=== PATIENT | female | born 1995 | race Hispanic/Latino ===

== ENCOUNTER → 2022-02-05 10:41 | Outpatient (CLI) | payer OTHER, MEDICAID, SELFPAY ==
[2022-02-05 20:37] LABS: Appearance Urine UA CLEAR; Bilirubin Urine UA NEGATIVE (NEGATIVE); Color Urine UA YELLOW; Glucose Urine UA NEGATIVE (Negative); Ketones Urine UA NEGATIVE (NEGATIVE); Leukocyte Esterase Urine UA 3+ (NEGATIVE); Nitrite Urine UA NEGATIVE (Negative); Occult Blood Urine UA 2+ (Negative); Protein Urine UA NEGATIVE (Negative); Specific Gravity Urine UA <=1.005 (1.000-1.035); Urobilinogen Urine UA 0.2 E.U./dL (0.2)
[2022-02-05 20:55] LABS: Bacteria Urine Many (>30); Culture Indicated Urine Cult Not Indicated; RBC Urine 1-5/HPF (0-5/HPF); Squamous Epithelial Cell Urine 1-5 /HPF (0-5/HPF); WBC Urine 30-100/HPF (0-5/HPF)
== END ==
PROVIDERS: PCP Family Medicine; Referring Provider Nurse Practitioner Family; Visit Provider Nurse Practitioner Family
DX: R30.0 Dysuria (principal)
CPT/HCPCS: 81001; 87077; 87086; 87186

== ENCOUNTER 2022-10-19 18:35 | Emergency (ER) | payer OTHER, MEDICAID, SELFPAY ==
[2022-10-19 19:07] VITALS: BP 110/55; PULSE 78; RESP 18; TEMP 36.1; O2SAT 98; BMI 35.6
[2022-10-19 19:32] LABS: Add Manual Diff / Slide Review NO; Basophils Absolute Auto 0 /uL (0-100); Basophils Percent Auto 0.4 % (0-2); Eosinophils Absolute Auto 100 /uL (0-450); Eosinophils Percent Auto 1.4 % (2-4); Hematocrit 36.8 % (36-46); Hemoglobin 12.8 g/dL (12.0-16.0); Lymphocytes Absolute Auto 2800 /uL (1100-4500); Lymphocytes Percent Auto 37.9 % (25-40); Mean Corpuscular HGB Conc 34.7 % (30-36); Mean Corpuscular Hemoglobin 29.2 PG (26-34); Monocytes Absolute Auto 500 /uL (0-900); Monocytes Percent Auto 7.3 % (3-14); Neutrophils Absolute Auto 3900 /uL (1500-7000); Platelet Count 195 X10^3/uL (150-400); Red Blood Cell Count 4.37 X10^6/uL (4.0-5.2); Red Cell Distribution Width 14.4 % (11.6-14.8); White Blood Cell Count 7.3 X10^3/uL (4.5-11.0)
[2022-10-19 19:49] LABS: BUN Creatinine Ratio 14.3 (6-22); Blood Urea Nitrogen 9 mg/dL (7-17); Calcium 8.6 mg/dL (8.4-10.2); Carbon Dioxide 23 mmol/L (22-32); Chloride 105 mmol/L (98-107); Estimated Glomerular Filt Rate > 60 mL/min (>60); Glucose 86 mg/dL (70-100); HEMOLYSIS < 15 (0-50); Potassium 3.5 mmol/L (3.4-5.1); Sodium 140 mmol/L (137-145)
--- NOTE | 2022-10-19 20:39 | ED_ITS ---
HPI - Female Genitourinary General Chief complaint: Vaginal Bleeding Stated complaint: had iud remov Fri, excessive bleedi as of Sat Time Seen by Provider: 10/19/22 20:17 Source: patient Mode of arrival: Ambulatory History of Present Illness HPI Narrative: 27-year-old female nonsmoker presents with few days of lower pelvic cramping and vaginal bleeding. She denies systemic complaints such as dizziness, weakness or lightheadedness. At no point has she saturated more than a pad per hour. She states that she had an IUD removed on and soon thereafter started developing some spotting. She has been managed by learning and development administrator at [facility]. If she sits for a long period of time upon standing she will feel a gush of blood in the passage of a clot but no tissue, discharge. She is had no fever or chills. She denies chest pain or shortness of breath. Related Data Allergies Allergy/AdvReac Type Severity Reaction Status Date / Time No Known Drug Allergies Allergy Verified 10/19/22 23:13 Review of Systems Review of Systems Narrative: GENERAL: Denies chills, fatigue, malaise, fever, sweats. HEENT: Denies sinus pain, ear pain, sore throat, difficulty swallowing, dizziness. RESPIRATORY: Denies dyspnea, cough, wheezing, hemoptysis, sputum. CARDIOVASCULAR: Denies chest pain, palpitations, orthopnea, edema, GASTROINTESTINAL: Denies nausea, vomiting, abdominal pain, diarrhea, constipation, melena. : See HPI MUSCULOSKELETAL: denies weakness, joint pain, or bony pain SKIN: Denies rash, skin lesions, or other NEUROLOGIC: Denies weakness, headache, numbness, change in speech, confusion, seizures, incoordination. PSYCHIATRIC: No concerning psychosocial issues. 12 point review of systems is negative except for those stated above Patient History Substance Use Type: does not use Exam Narrative Exam Narrative: GENERAL: [27] year old patient appears stated age. Well-developed patient, in mild distress. HEAD: Atraumatic. Normocephalic. EYES: Pupils equal round and reactive. Extraocular motions intact. No scleral icterus. No injection or drainage. ENT: Nose without bleeding, purulent drainage. Throat without erythema, tonsillar hypertrophy or exudate. Airway patent. NECK: Trachea midline. Non tender CARDIOVASCULAR: Regular rate and rhythm without murmurs, gallops, or rubs. RESPIRATORY: Clear to auscultation. Breath sounds equal bilaterally. No wheezes, rales, or rhonchi. GASTROINTESTINAL: Abdomen soft, non-tender, nondistended. PELVIC: Minimal dark blood via closed cervical os, no clots or tissue, perf ormed with patient permission and female nursing reception interviewer EXTREMITIES: No edema or joint tenderness. BACK: Nontender without deformity or crepitance. No flank tenderness. NEURO: AOx3. SKIN: No rash or erythema of visible areas Initial Vital Signs Initial Vital Signs: Vital Signs Temperature 97 F L 10/19/22 19:07 Pulse Rate 78 10/19/22 19:07 Respiratory Rate 18 10/19/22 19:07 Blood Pressure 110/55 L 10/19/22 19:07 Pulse Oximetry 98 10/19/22 19:07 Oxygen Delivery Method 10/19/22 19:07 Course Orders Ordered: Discontinued Medications Acetaminophen (Acetaminophen 325 Mg Tablet) 650 mg PO NOW ONE Stop: 10/19/22 22:53 Last Admin: 10/19/22 23:14 Dose: 650 mg Documented By: MANGO Ketorolac Tromethamine (Ketorolac 30 Mg/Ml Vial) 15 mg IV NOW ONE Stop: 10/19/22 23:23 Last Admin: 10/19/22 23:47 Dose: 15 mg Documented By: MANGO Consultations Consultation #1: Discussed with on-call OB (Dr. Davies), who discussed history, physical, labs and imaging. Recommends NSAIDs on a schedule for the next few days, no indication for medroxyprogesterone or similar. Recommends typical return precautions and follow-up with her OB group Vital Signs Vital signs: Vital Signs - 8 hr 10/19/22 22:40 10/19/22 23:00 10/19/22 23:16 Pulse Rate 70 78 83 Respiratory Rate 16 16 Blood Pressure 116/70 138/88 Pulse Oximetry 98 98 98 Oxygen Delivery Method Room Air Room Air Room Air 10/19/22 23:30 10/19/22 23:30 Pulse Rate 64 Respiratory Rate Blood Pressure 109/70 Pulse Oximetry 98 Oxygen Delivery Method Room Air MDM - Female Genitourinary Lab Data 10/19/22 19:10 10/19/22 19:10 Labs: Lab Results 10/19/22 10/19/22 10/19/22 Range/Units 19:10 19:10 19:10 WBC 7.3 (4.5-11.0) X10^3/uL RBC 4.37 (4.0-5.2) X10^6/uL Hgb 12.8 (12.0-16.0) g/dL Hct 36.8 (36-46) % MCV 84.0 (80-100) fL MCH 29.2 (26-34) PG MCHC 34.7 (30-36) % RDW 14.4 (11.6-14.8) % Plt Count 195 (150-400) X10^3/uL Neut % (Auto) 53.0 (50-75) % Lymph % (Auto) 37.9 (25-40) % Piatt % (Auto) 7.3 (3-14) % Eos % (Auto) 1.4 L (2-4) % Baso % (Auto) 0.4 (0-2) % Neut # (Auto) 3900 (5917-9160) /uL Lymph # (Auto) 2800 (4846-9997) /uL Piatt # (Auto) 500 (0-900) /uL Eos # (Auto) 100 (0-450) /uL Baso # (Auto) 0 (0-100) /uL Sodium 140 (137-145) mmol/L Potassium 3.5 (3.4-5.1) mmol/L Chloride 105 (98-107) mmol/L Carbon Dioxide 23 (22-32) mmol/L BUN 9 (7-17) mg/dL Creatinine 0.63 (0.52-1.04) mg/dL Estimated GFR > 60 (>60) mL/min BUN/Creatinine Ratio 14.3 (6-22) Glucose 86 (70-100) mg/dL Calcium 8.6 (8.4-10.2) mg/dL Urine RBC (0-5/HPF) Urine WBC (0-5/HPF) Ur Squamous Epith Cells (0-5/HPF) Amorphous Sediment Urine Bacteria (None) Ur Culture Indicated? Blood Type O Positive Antibody Screen Negative 10/19/22 Range/Units 21:10 WBC (4.5-11.0) X10^3/uL RBC (4.0-5.2) X10^6/uL Hgb (12.0-16.0) g/dL Hct (36-46) % MCV (80-100) fL MCH (26-34) PG MCHC (30-36) % RDW (11.6-14.8) % Plt Count (150-400) X10^3/uL Neut % (Auto) (50-75) % Lymph % (Auto) (25-40) % Piatt % (Auto) (3-14) % Eos % (Auto) (2-4) % Baso % (Auto) (0-2) % Neut # (Auto) (2549-6512) /uL Lymph # (Auto) (4396-5034) /uL Piatt # (Auto) (0-900) /uL Eos # (Auto) (0-450) /uL Baso # (Auto) (0-100) /uL Sodium (137-145) mmol/L Potassium (3.4-5.1) mmol/L Chloride (98-107) mmol/L Carbon Dioxide (22-32) mmol/L BUN (7-17) mg/dL Creatinine (0.52-1.04) mg/dL Estimated GFR (>60) mL/min BUN/Creatinine Ratio (6-22) Glucose (70-100) mg/dL Calcium (8.4-10.2) mg/dL Urine RBC 5-10/hpf H (0-5/HPF) Urine WBC None seen (0-5/HPF) Ur Squamous Epith Cells 0-1 /hpf (0-5/HPF) Amorphous Sediment 1+ Urine Bacteria None seen (None) Ur Culture Indicated? Cult not indicated Blood Type Antibody Screen Point of Care Testing Test Results Negative Urine Dip Bedside Urine Glucose Negative Bedside Urine Bilirubin - Negative Bedside Urine Ketone - Negative Urine Specific [place] 1.015 Bedside Urine Occult Blood +++ Bedside Urine pH 6.0 Bedside Urine Protein - Negative Bedside Urine Urobilinogen - Negative Bedside Urine Nitrite - Negative Bedside Urine Leukocytes - Negative Esterase Imaging Data US - ETCHER APPRENTICE PHOTOENGRAVING: Radiologist's Impression: [address] [place] [id number] Ultrasound Report Signed Patient: Justina Lopez MR#: [id number] : 1995 Acct:[id number] Age/Sex: 27 / F Date of Service: 10/19/22 Loc: ED Accession Number: [id number] ?? Procedure: US pelvic complete Ordering Provider: Alf Mcqueen D.O. PROCEDURE:? US PELVIC COMPLETE ? INDICATIONS:? PAIN, BLEEDING 4 DAYS POST IUD REMOVAL ? TECHNIQUE:? Real-time scanning was performed of the pelvic organs, with image documenta tion.? Additional endovaginal scanning was necessary due to incomplete visualization of the adnexal and endometrial structures by transabdominal scanning.? ? COMPARISON:[facility], US, US PELVIC COMPLETE WITH TRANSVAGINAL, 09/25/2022, 12:28. ? FINDINGS:? ?? Uterus:? Uterus is anteverted and measures 8.8 x 4.4 x 5.7 cm.? The endometrium is indistinct in appearance and appears slightly thickened, measuring up to 1.8 cm.? No endocervical fluid identified.? No definite internal vascularity on color Doppler interrogation.? ? Ovaries:? The right ovary measures 3.4 x 2.5 x 2.0 cm, with a calculated ovarian volume of 9.1 cc. The left ovary measures 2.3 x 2.5 x 1.3 cm, with a calculated ovarian volume of 3.9 cc. The ovaries have a normal sonographic appearance. Less than 12 follicles can be seen in each ovary.? No adnexal masses. ? Other:? No pathologic free abdominal or pelvic fluid. ? ? IMPRESSION:? ? 1. Slightly ill-defined appearance of the endometrium which appears slightly thickened.? No endometrial fluid collection identified. ? ? We strive to produce accurate, complete, and clear reports of imaging services. To assist us in improving patient care, this report was composed using standard report templates and voice recognition software. Therefore, it may contain abnormal punctuation, insertions and/or omissions. Occasional wrong-word or sound-alike substitutions may occur. Though we review the report and make efforts to correct it, we do recommend that the report be read carefully in proper context to recognize any text inaccuracies. ? ? Dictated by: Miles Hernadez M.D. on 10/19/2022 at 22:22 ? ? Approved by: Miles Hernadez M.D. on 10/19/2022 at 22:26 ? MDM Narrative Medical decision making narrative: CC: 27-year-old with cramping in dark vaginal bleeding after IUD removal Complicating co-morbidities: None known Data collected from: Patient Medical records reviewed: Prior ED notes Differential considered, but not limited to: Anemia, or moan irregularity versus other Exam documented above, pertinent findings include: Lungs clear, heart rate regular, abdomen soft, pelvic demonstrates dark red blood via closed cervical os Lab Test results independently reviewed as above. Pertinent findings: Imaging studies independently reviewed: No significant abnormality Consultations: Discussed with Dr. Davies, please see above Treatments: Toradol Re-evaluations: Improved symptoms of her duration of stay Discussion: Patient with recent IUD removal and subsequent vaginal bleeding and pelvic cramping. She has no systemic complaints, and is not bleeding sufficiently to altered vitals or blood work which is very reassuring. Minimal bleeding on exam, never saturating more than a pad per hour. Discussed with on- call OB, no indication for medroxyprogesterone, recommend NSAIDs on a schedule for few days and close follow-up with typical return precautions. Patient's discomfort well tolerated, she is ambulatory in the department, tolerating orals. Disposition: see below, along with detailed discharge instructions that have been reviewed with patient as well as indications for ED re-evaluation and additional outpatient follow up Discharge Plan Departure Patient Disposition: Home Clinical Impression: Vaginal bleeding Instructions: DI for Vaginal Bleeding Activity Restrictions/Additional Instructions: *You have been diagnosed with [vaginal bleeding] *What to do: *Please consider the use of Motrin 600 mg every 6 hours for the next 3-4 days *Please follow up with your primary OB provider in 2-3 days, call for an appointment. Let them know you were seen in the Emergency Department and that we ask that you be seen in follow up. *Return to Emergency Department if you should have any new, worsening or concerning symptoms, such as heavy bleeding (saturating a pad per hour or more) [fever greater than 101 F, shaking chills, worsening pain, persistent vomiting or other bothersome symptoms] Referrals: Ivonne Anderson MD [Primary Care Provider] - Stand Alone Forms: Patient Portal/API
--- NOTE | 2022-10-19 20:50 | DI.US.S_ITS ---
PROCEDURE: US PELVIC COMPLETE INDICATIONS: PAIN, BLEEDING 4 DAYS POST IUD REMOVAL TECHNIQUE: Real-time scanning was performed of the pelvic organs, with image documentation. Additional endovaginal scanning was necessary due to incomplete visualization of the adnexal and endometrial structures by transabdominal scanning. COMPARISON:[facility], US, US PELVIC COMPLETE WITH TRANSVAGINAL, 09/25/2022, 12:28. FINDINGS: Uterus: Uterus is anteverted and measures 8.8 x 4.4 x 5.7 cm. The endometrium is indistinct in appearance and appears slightly thickened, measuring up to 1.8 cm. No endocervical fluid identified. No definite internal vascularity on color Doppler interrogation. Ovaries: The right ovary measures 3.4 x 2.5 x 2.0 cm, with a calculated ovarian volume of 9.1 cc. The left ovary measures 2.3 x 2.5 x 1.3 cm, with a calculated ovarian volume of 3.9 cc. The ovaries have a normal sonographic appearance. Less than 12 follicles can be seen in each ovary. No adnexal masses. Other: No pathologic free abdominal or pelvic fluid. IMPRESSION: 1. Slightly ill-defined appearance of the endometrium which appears slightly thickened. No endometrial fluid collection identified. We strive to produce accurate, complete, and clear reports of imaging services. To assist us in improving patient care, this report was composed using standard report templates and voice recognition software. Therefore, it may contain abnormal punctuation, insertions and/or omissions. Occasional wrong-word or sound-alike substitutions may occur. Though we review the report and make efforts to correct it, we do recommend that the report be read carefully in proper context to recognize any text inaccuracies. Dictated by: Miles Hernadez M.D. on 10/19/2022 at 22:22 Approved by: Miles Hernadez M.D. on 10/19/2022 at 22:26
[2022-10-19 21:30] LABS: Amorphous Sediment Urine 1+; Bacteria Urine None Seen; Culture Indicated Urine Cult Not Indicated; RBC Urine 5-10/HPF (0-5/HPF); Squamous Epithelial Cell Urine 0-1 /HPF (0-5/HPF); WBC Urine None Seen (0-5/HPF)
[2022-10-19 22:40] VITALS: BP 116/70; PULSE 70; RESP 16; O2SAT 98
[2022-10-19 23:00] VITALS: BP 138/88; PULSE 78; RESP 16; O2SAT 98
[2022-10-19] MEDS: ACETAMINOPHEN 325 MG TABLET 650 MG PO (23:14)
[2022-10-19 23:16] VITALS: PULSE 83; O2SAT 98
[2022-10-19 23:30] VITALS: BP 109/70; PULSE 64; O2SAT 98
[2022-10-19] MEDS: KETOROLAC 30 MG/ML VIAL 15 MG IV (23:47)
== END 2022-10-20 00:01 | disposition home or self-care (01) ==
PROVIDERS: Emergency Provider Emergency Medicine; PCP Family Medicine
DX: N93.9 Abnormal uterine and vaginal bleeding, unspecified (principal)
CPT/HCPCS: 36415; 76830; 76856; 80048; 81003; 81015; 81025; 85025; 86850; 86900; 86901; 96374; 99284; J1885

== ENCOUNTER → 2022-11-30 13:02 | Outpatient (CLI) | payer OTHER, MEDICAID, SELFPAY ==
[2022-11-30 13:25] LABS: Appearance Urine UA CLEAR
[2022-11-30 13:28] LABS: Color Urine UA ORANGE
[2022-11-30 20:08] LABS: Bacteria Urine Moderate (10-30); Culture Indicated Urine Specimen Cultured; RBC Urine 0-1/HPF (0-5/HPF); Squamous Epithelial Cell Urine None Seen (0-5/HPF); WBC Urine 1-5/HPF (0-5/HPF)
== END ==
PROVIDERS: PCP Family Medicine; Referring Provider Obstetrics & Gynecology; Visit Provider Obstetrics & Gynecology
DX: R39.15 Urgency of urination (principal)
CPT/HCPCS: 81001; 87086

== ENCOUNTER → 2023-06-19 | Outpatient (CLI) | payer OTHER, MEDICAID, SELFPAY | PROVIDERS: PCP Family Medicine; Referring Provider Family Medicine; Visit Provider Family Medicine | DX: Z23 Encounter for immunization (principal) | CPT/HCPCS: 90471; 90686 ==

== ENCOUNTER → 2024-06-06 12:56 | Outpatient (CLI) | payer OTHER, MEDICAID, SELFPAY ==
--- NOTE | 2024-06-06 12:57 | DI.RAD.S_ITS ---
PROCEDURE: XR SHOULDER LT MIN 2V INDICATIONS: fall on shoulder this am TECHNIQUE: 3 views of the shoulder were acquired. COMPARISON: None. FINDINGS: Bones: No fractures or dislocations. No suspicious bony lesions. Visualized ribs appear intact. Soft tissues: No suspicious soft tissue calcifications. IMPRESSION: No acute bony abnormality. Dictated by: Ruy Oliva M.D. on 06/08/2024 at 11:08 Approved by: Ruy Oliva M.D. on 06/08/2024 at 11:09
== END ==
PROVIDERS: PCP Family Medicine; Referring Provider Physician Assistant; Visit Provider Physician Assistant
DX: S46.919A Strain of unspecified muscle, fascia and tendon at shoulder and upper arm level, unspecified arm, initial encounter (principal); W19.XXXA Unspecified fall, initial encounter
CPT/HCPCS: 73030

== ENCOUNTER → 2024-06-28 19:21 | Outpatient (CLI) | payer OTHER, MEDICAID, SELFPAY ==
--- NOTE | 2024-06-28 19:22 | DI.MRI.S_ITS ---
PROCEDURE: MR SHOULDER LT WO CON INDICATIONS: reduced ROM/impingement abduction, s/p fall 1 week ago TECHNIQUE: Noncontrast oblique coronal T2 fast spin echo with fat saturation, oblique sagittal T1 spin echo and T2 fast spin echo with fat saturation, axial T1 spin echo and T2 fast spin echo with fat saturation through the shoulder. COMPARISON: None. FINDINGS: Image quality: Excellent. Rotator cuff: Mild tendinosis of the supraspinatus. The infraspinatus is unremarkable. The teres minor is unremarkable. The subscapularis is unremarkable. No muscle edema or fatty atrophy. Bones and bursae: No significant degenerative changes of the acromioclavicular joint. Type 1 acromion. No os acromiale. Trace subacromial/subdeltoid bursitis. Mild subchondral cystic changes at the posterior aspect of the greater tuberosity, reactive. No acute fracture. No focal chondral defect of the glenohumeral articulation. Capsule and soft tissues: The labrum is grossly intact. The extra-articular biceps tendon is intact. Mild tendinosis of the intra-articular biceps tendon. No significant glenohumeral effusion. No subcoracoid bursitis. IMPRESSION: 1. Mild tendinosis of the supraspinatus. 2. Mild tendinosis of the intra-articular biceps tendon. Dictated by: Yee Navarro M.D. on 06/29/2024 at 10:12 Approved by: Yee Navarro M.D. on 06/29/2024 at 10:20
== END ==
PROVIDERS: PCP Family Medicine; Referring Provider Physician Assistant; Visit Provider Physician Assistant
DX: S49.92XA Unspecified injury of left shoulder and upper arm, initial encounter (principal); M25.819 Other specified joint disorders, unspecified shoulder; W19.XXXA Unspecified fall, initial encounter
CPT/HCPCS: 73221

== ENCOUNTER → 2024-07-01 15:48 | Outpatient (CLI) | payer OTHER, MEDICAID, SELFPAY | PROVIDERS: Family Provider Family Medicine; PCP Family Medicine; Referring Provider Internal Medicine; Visit Provider Internal Medicine | DX: Z23 Encounter for immunization (principal) | CPT/HCPCS: 90471; 90656 ==

== ENCOUNTER → 2024-09-14 10:14 | Outpatient (CLI) | payer OTHER, MEDICAID, SELFPAY ==
--- NOTE | 2024-09-14 10:16 | DI.RAD.S_ITS ---
PROCEDURE: XR RIBS LT MIN 3V W CXR1V INDICATIONS: anterior pain left side since fall in Sept TECHNIQUE: 2 views of the ribs were acquired, along with a single view chest. COMPARISON: None. FINDINGS: Surgical changes and devices: None. Bones and chest wall: No fractures or dislocations. No suspicious bony lesions. Overlying soft tissues appear unremarkable. Lungs and pleura: No pleural effusions or pneumothorax. Lungs appear clear. Mediastinum: Mediastinal contours appear normal. Heart size is normal. IMPRESSION: No displaced rib fracture or pneumothorax. Dictated by: Benedict Link M.D. on 09/14/2024 at 15:47 Approved by: Benedict Link M.D. on 09/14/2024 at 15:47
== END ==
PROVIDERS: Family Provider Family Medicine; PCP Family Medicine; Referring Provider Physician Assistant; Visit Provider Physician Assistant
DX: R07.81 Pleurodynia (principal)
CPT/HCPCS: 71101

== ENCOUNTER → 2024-09-22 14:12 | Outpatient (CLI) | payer OTHER, SELFPAY ==
[2024-09-22 15:29] LABS: Influenza A - CEPHEID Flu A NEGATIVE (NEGATIVE); Influenza B - CEPHEID Flu B NEGATIVE (NEGATIVE); Respiratory Syncytial Virus Negative (Negative)
[2024-09-22 15:30] LABS: COVID-19 CEPHEID 4-PLEX PCR Negative (Negative)
== END ==
PROVIDERS: Family Provider Family Medicine; PCP Family Medicine; Visit Provider Family Medicine
DX: R05.9 Cough, unspecified (principal); Z20.828 Contact with and (suspected) exposure to other viral communicable diseases
CPT/HCPCS: 87635; 87400; 87420; 0241U

== ENCOUNTER 2024-10-30 09:00 | Outpatient (RCR) | payer OTHER, MEDICAID, SELFPAY ==
--- NOTE | 2024-08-04 14:27 | PT.OIE ---
Current Diagnoses Pain in left shoulder (08/04/24) Stiffness of left shoulder, not elsewhere classified (08/04/24) Other specified joint disorders, unspecified shoulder (08/04/24) Unspecified injury of left shoulder and upper arm, initial encounter (08/04/24) Unspecified injury of left shoulder and upper arm, subsequent encounter (08/04/24) Visit Care Team Role Provider Type Haley Chand DO Primary Care Provider Physician Specialty: Family Practice Address: [address] [place] [address], [address], [place], [address] Email: [email or web address] Ivonne Anderson MD Family Provider Non-Staff Specialty: Medical Address: [address] [place] [address], [address] Email: Brandy Vang PA-C Attending Provider Advanced [employer] Sander Referring Provider Specialty: Medical Wound Care Address: [address] [place] [address], [address] Email: [email or web address] Physical Therapy Initial Evaluation PT-OP-A Visit Information Start: 08/04/24 13:50 Freq: Status: Active Protocol: Document 08/04/24 09:45 DCW (Rec: 08/04/24 14:09 DCW [id number]) Out-Patient Physical Therapy Visit Information Visit Information Visit Type Initial Evaluation Visit Start Time 09:45 Visit Stop Time 10:30 Visit Number 1 Number of CLIENT SUPPORT MANAGER Visits 0 Evaluation Information Evaluation Date 08/04/24 PT-OP-B Current Condition Start: 08/04/24 13:50 Freq: Status: Active Protocol: Document 08/04/24 09:45 DCW (Rec: 08/04/24 14:09 DCW [id number]) Current Condition History of Current Condition Onset Date 06/06/24 Current Complaints Left shoulder pain History of Current Condition Pt is a 29 year old female presenting to skilled therapy with a two month history of left shoulder pain. Pt slipped on wet grass while chasing her young son, landing on her left shoulder. Was seen on the day of injury at the walk-in clinic and provided with an x- ray, which was unremarkable. Pain continued, specifically with abduction, and after a follow-up, pt was able to get in for an MRI, which showed mild tendonitis in her supraspinatus and biceps tendons. Pt is still experiencing significant pain two months later. 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 Additionally has difficulty with housework, like sweeping/ mopping. Had been wearing a sling during the day up until last week for comfort. Still taking 600 mg of Gabapentin 3x /daily due to pain. Reports it feels like someone is constantly pulling down on my arm, like it's really heavy and just hangs there. Prior Treatments and Tests Shoulder x-ray: IMPRESSION: No acute bony abnormality. per Ruy Oliva M.D. on Shoulder MRI: IMPRESSION: 1. Mild tendinosis of the supraspinatus. 2. Mild tendinosis of the intra- articular biceps tendon. Yee Navarro M.D. on 06/29/2024 PT-OP-C Subjective Start: 08/04/24 13:50 Freq: Status: Active Protocol: Document 08/04/24 09:45 DCW (Rec: 08/04/24 14:09 DCW [id number]) OP-PT Subjective Patient Comments Patient Comments Pt notes her son often runs up to hug her, which results in him hitting her shoulder, which adds to the pain. Patient Reported Progress Same Patient Questionnaires Quick Dash- Upper Extremity Quick Dash UE Score 54.55% Quick Dash UE Impairment 40 to 59% Impaired (Score 40- 59) PT-OP-F Manual Assessment Start: 08/04/24 13:50 Freq: Status: Active Protocol: Document 08/04/24 09:45 DCW (Rec: 08/04/24 14:09 DCW [id number]) Manual Assessments Soft Tissue Assessment Soft Tissue Mobility Assessment Mild-moderate tone and tenderness to palpation 2/4: pain with wincing along medial angle of the left scapula, left upper trap and scalenes. Moderate tone and tenderness to palpation 3/4: wincing and withdraw at left pec Joint Mobility Assessment Joint Mobility Assessment Significant pain with all palpation of the clavicle, specifically at the a/c and s/ c joints, no step-deformity noted PT-OP-K Range of Motion Start: 08/04/24 13:50 Freq: Status: Active Protocol: Document 08/04/24 09:45 DCW (Rec: 08/04/24 14:09 DCW [id number]) Shoulder Goniometric Range of Motion Shoulder Right Active Shoulder ROM WFL Yes Testing Position Sitting Flexion 180 Abduction 180 External Rotation at 0 degrees Abduction 78 Internal Rotation Behind Back (text) T8 Left Active Shoulder ROM WFL No Testing Position Sitting Flexion 105 Abduction 73 External Rotation at 0 degrees Abduction 75 Internal Rotation Behind Back (text) L3 PT-OP-L Special Tests Start: 08/04/24 13:50 Freq: Status: Active Protocol: Document 08/04/24 09:45 DCW (Rec: 08/04/24 14:09 DCW [id number]) Special Tests Shoulder Special Tests Yergason's Biceps Test Results Negative Speed's Biceps Test Results Negative Passive ER Rotator Cuff Test Results Negative Painful Arc Test Results Positive left Lift-Off Rotator Cuff Test Results Negative Fagan Kamar Impingement Test Results Positive left Drop Arm Rotator Cuff Test Results Negative Clunk Test Test Results Negative Belly Press Test Results Negative Apprehension Test Test Results Negative AC Joint Compression Test Results Positive left - severe pain PT-OP-M Strength Start: 08/04/24 13:50 Freq: Status: Active Protocol: Document 08/04/24 09:45 DCW (Rec: 08/04/24 14:09 DCW [id number]) Shoulder Strength Shoulder Manual Muscle Testing Right Flexion 5 Normal Abduction (C5) 5 Normal External Rotation 5 Normal Internal Rotation 5 Normal Horizontal Abduction 5 Normal Left Flexion 4 Good Abduction (C5) 3- Fair- External Rotation 5 Normal Internal Rotation 5 Normal Horizontal Abduction 5 Normal PT-OP-Q Treatments Start: 08/04/24 13:50 Freq: Status: Active Protocol: Document 08/04/24 09:45 DCW (Rec: 08/04/24 14:09 DCW [id number]) Therapeutic Exercises Sitting Exercises External rotation Sitting Exercise Name External rotation Side bilateral Resistance Lv 3 Standing Exercises Flexion Standing Exercise Name Shoulder Flexion Side left Comments Stopped due to pain Abduction Standing Exercise Name Shoulder Abduction Side left Comments Stopped due to pain Rows Standing Exercise Name Rows Side left Resistance Lv 3 Internal Rotation Standing Exercise Name Internal rotation Side left Resistance Lv 3 PT-OP-T Assessment and Plan Start: 08/04/24 13:50 Freq: Status: Active Protocol: Document 08/04/24 09:45 DCW (Rec: 08/04/24 14:27 DCW [id number]) Physical Therapy Assessment Rehab Potential Rehabilitation Potential Good Evaluation Complexity Number of Personal Factors/Comorbidities 1-2 Number of Body Systems Impaired 4 or More Clinical Presentation at Evaluation Evolving Impairments Impairments Functional Activities, Functional Mobility,Pain,ROM, Soft Tissue Mobility,Strength, Tone Goals Three Impairment Pt experienced limited left shoulder abduction (73? AROM) Custodial Goal (LTG) Pt to improve pain-free left AROM to 120? abduction in order to improve her ability to perform associated work activities without pain. LTG Duration 10/04/24 Two Impairment Pt unable to sweep/mop her house without assistance due to shoulder pain Stockroom Associate Goal (LTG) Pt to report ability to complete sweeping/mopping 50% of her house without increased pain in order to demonstrate increased functional mobility. LTG Duration 10/04/24 One Impairment Pt does not have an appropriate home exercise program Short Term Goal (STG) Pt to be independent and compliant with an appropriate HEP STG Duration 09/03/24 Assessment Summary Assessment Pt presents with signs and symptoms consistent with left shoulder injury secondary to fall two months ago. Currently , testing is suggestive of potential a/c joint sprain. A/ C joint severely tender with palpation, and does exhibit limited motion on left vs right during shoulder flexion and abduction. Subjective complaint of her arm feeling heavy and pulled down is a common complaint with a/c joint sprains. No notable signs of rotator cuff involvement. Does have some spasm in upper trap, scalenes, and rhomboids, which may suggest either underlying soft tissue damage or protective spasming. Pt may benefit from skilled therapeutic intervention focusing on improving joint mobility, STM, shoulder ROM, and strengthening. If pt does not progress as expected, may benefit from referral to ortho for secondary follow-up with imaging. Physical Therapy Plan Frequency and Duration Frequency of Treatment 2x/Week Plan of Care Start Date 08/04/24 Plan of Care End Date 10/04/24 Therapeutic Interventions Therapeutic Interventions Home Exercise Program,Joint Mobilizations,Manual Therapy, Neuromuscular Re-education, Patient/Caregiver Education, Self-Care/Home Management,Soft Tissue Mobilization, Therapeutic Activities, Therapeutic Exercises Modalities Cold Pack/Ice Massage,Electric Stimulation,Hot Packs, Ultrasound Next Visit Focus/Plan Next Note Type Treatment Note Next Visit Plan STM, joint mobilizations, strengthening
--- NOTE | 2024-08-04 14:29 | PT.OPPOC ---
Physical, Occupational & Speech Therapy At [facility] Current Diagnoses Pain in left shoulder (08/04/24) Stiffness of left shoulder, not elsewhere classified (08/04/24) Other specified joint disorders, unspecified shoulder (08/04/24) Unspecified injury of left shoulder and upper arm, initial encounter (08/04/24) Unspecified injury of left shoulder and upper arm, subsequent encounter (08/04/24) Visit Care Team Role Provider Type Haley Chand DO Primary Care Provider Physician Specialty: Family Practice Address: [address] [place] [address], [address], [address] Email: [email or web address] Ivonne Anderson MD Family Provider Non-Staff Specialty: Medical Address: [address] [place] [address], [id number] Email: Brandy Vang PA-C Attending Provider Advanced Engagement Liaison Referring Provider Specialty: Medical Wound Care Address: [address] [place] [address], [id number] Email: [email or web address] Plan Of Care PT-OP-B Current Condition Start: 08/04/24 13:50 Freq: Status: Active Protocol: Document 08/04/24 09:45 DCW (Rec: 08/04/24 14:09 DCW [id number]) Current Condition History of Current Condition Onset Date 06/06/24 Current Complaints Left shoulder pain History of Current Condition Pt is a 29 year old female presenting to skilled therapy with a two month history of left shoulder pain. Pt slipped on wet grass while chasing her young son, landing on her left shoulder. Was seen on the day of injury at the walk-in clinic and provided with an x- ray, which was unremarkable. Pain continued, specifically with abduction, and after a follow-up, pt was able to get in for an MRI, which showed mild tendonitis in her supraspinatus and biceps tendons. Pt is still experiencing significant pain two months later. 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 Additionally has difficulty with housework, like sweeping/ mopping. Had been wearing a sling during the day up until last week for comfort. Still taking 600 mg of Gabapentin 3x /daily due to pain. Reports it feels like someone is constantly pulling down on my arm, like it's really heavy and just hangs there. Prior Treatments and Tests Shoulder x-ray: IMPRESSION: No acute bony abnormality. per Ruy Oliva M.D. on Shoulder MRI: IMPRESSION: 1. Mild tendinosis of the supraspinatus. 2. Mild tendinosis of the intra- articular biceps tendon. Yee Navarro M.D. on 06/29/2024 PT-OP-T Assessment and Plan Start: 08/04/24 13:50 Freq: Status: Active Protocol: Document 08/04/24 09:45 DCW (Rec: 08/04/24 14:27 DCW [id number]) Physical Therapy Assessment Rehab Potential Rehabilitation Potential Good Evaluation Complexity Number of Personal Factors/Comorbidities 1-2 Number of Body Systems Impaired 4 or More Clinical Presentation at Evaluation Evolving Impairments Impairments Functional Activities, Functional Mobility,Pain,ROM, Soft Tissue Mobility,Strength, Tone Goals Three Impairment Pt experienced limited left shoulder abduction (73? AROM) Prison Goal (LTG) Pt to improve pain-free left AROM to 120? abduction in order to improve her ability to perform associated work activities without pain. LTG Duration 10/04/24 Two Impairment Pt unable to sweep/mop her house without assistance due to shoulder pain Hairpiece Stylist Goal (LTG) Pt to report ability to complete sweeping/mopping 50% of her house without increased pain in order to demonstrate increased functional mobility. LTG Duration 10/04/24 One Impairment Pt does not have an appropriate home exercise program Short Term Goal (STG) Pt to be independent and compliant with an appropriate HEP STG Duration 09/03/24 Assessment Summary Assessment Pt presents with signs and symptoms consistent with left shoulder injury secondary to fall two months ago. Currently , testing is suggestive of potential a/c joint sprain. A/ C joint severely tender with palpation, and does exhibit limited motion on left vs right during shoulder flexion and abduction. Subjective complaint of her arm feeling heavy and pulled down is a common complaint with a/c joint sprains. No notable signs of rotator cuff involvement. Does have some spasm in upper trap, scalenes, and rhomboids, which may suggest either underlying soft tissue damage or protective spasming. Pt may benefit from skilled therapeutic intervention focusing on improving joint mobility, STM, shoulder ROM, and strengthening. If pt does not progress as expected, may benefit from referral to ortho for secondary follow-up with imaging. Physical Therapy Plan Frequency and Duration Frequency of Treatment 2x/Week Plan of Care Start Date 08/04/24 Plan of Care End Date 10/04/24 Therapeutic Interventions Therapeutic Interventions Home Exercise Program,Joint Mobilizations,Manual Therapy, Neuromuscular Re-education, Patient/Caregiver Education, Self-Care/Home Management,Soft Tissue Mobilization, Therapeutic Activities, Therapeutic Exercises Modalities Cold Pack/Ice Massage,Electric Stimulation,Hot Packs, Ultrasound Next Visit Focus/Plan Next Note Type Treatment Note Next Visit Plan STM, joint mobilizations, strengthening Plan of Care Dates Plan of Care Start Date 08/04/24 Plan of Care End Date 10/04/24 Electronically Signed by: Elvis Grimm, PT 08/04/24 4787 If you are in agreement with this Plan of Care, please return a signed and dated copy. I have reviewed this Plan of Care and certify that the skilled therapy services above are required to meet the patient?s needs. Physician Signature Date Printed Name and Credentials Clinical Instructor Signature Printed Name and Credentials
--- NOTE | 2024-08-14 10:27 | PT.OTN ---
Current Diagnoses Pain in left shoulder (08/14/24) Stiffness of left shoulder, not elsewhere classified (08/14/24) Other specified joint disorders, unspecified shoulder (08/14/24) Unspecified injury of left shoulder and upper arm, initial encounter (08/14/24) Unspecified injury of left shoulder and upper arm, subsequent encounter (08/14/24) Physical Therapy Treatment Note PT-OP-A Visit Information Start: 08/04/24 13:50 Freq: Status: Active Protocol: Document 08/14/24 09:45 DCW (Rec: 08/14/24 10:27 DCW [id number]) Out-Patient Physical Therapy Visit Information Visit Information Visit Type Treatment Note Visit Start Time 09:45 Visit Stop Time 10:30 Visit Number 2 Number of RESIN REMOVER Visits 0 Evaluation Information Evaluation Date 08/04/24 PT-OP-B Current Condition Start: 08/04/24 13:50 Freq: Status: Active Protocol: Document 08/04/24 09:45 DCW (Rec: 08/04/24 14:09 DCW [id number]) Current Condition History of Current Condition Onset Date 06/06/24 Current Complaints Left shoulder pain History of Current Condition Pt is a 29 year old female presenting to skilled therapy with a two month history of left shoulder pain. Pt slipped on wet grass while chasing her young son, landing on her left shoulder. Was seen on the day of injury at the walk-in clinic and provided with an x- ray, which was unremarkable. Pain continued, specifically with abduction, and after a follow-up, pt was able to get in for an MRI, which showed mild tendonitis in her supraspinatus and biceps tendons. Pt is still experiencing significant pain two months later. She works at [employer] in a patient- facing position, and admits she has continuous pain with performing job duties, like reaching out to hand paperwork to patients during intake. Additionally has difficulty with housework, like sweeping/ mopping. Had been wearing a sling during the day up until last week for comfort. Still taking 600 mg of Gabapentin 3x /daily due to pain. Reports it feels like someone is constantly pulling down on my arm, like it's really heavy and just hangs there. Prior Treatments and Tests Shoulder x-ray: IMPRESSION: No acute bony abnormality. per Ruy Oliva M.D. on Shoulder MRI: IMPRESSION: 1. Mild tendinosis of the supraspinatus. 2. Mild tendinosis of the intra- articular biceps tendon. Yee Navarro M.D. on 06/29/2024 PT-OP-C Subjective Start: 08/04/24 13:50 Freq: Status: Active Protocol: Document 08/14/24 09:45 DCW (Rec: 08/14/24 10:27 DCW [id number]) OP-PT Subjective Patient Comments Patient Comments Pt hesitates, that says her shoulder is okay. PT-OP-F Manual Assessment Start: 08/04/24 13:50 Freq: Status: Active Protocol: Document 08/04/24 09:45 DCW (Rec: 08/04/24 14:09 DCW [id number]) Manual Assessments Soft Tissue Assessment Soft Tissue Mobility Assessment Mild-moderate tone and tenderness to palpation 2/4: pain with wincing along medial angle of the left scapula, left upper trap and scalenes. Moderate tone and tenderness to palpation 3/4: wincing and withdraw at left pec Joint Mobility Assessment Joint Mobility Assessment Significant pain with all palpation of the clavicle, specifically at the a/c and s/ c joints, no step-deformity noted PT-OP-K Range of Motion Start: 08/04/24 13:50 Freq: Status: Active Protocol: Document 08/04/24 09:45 DCW (Rec: 08/04/24 14:09 DCW [id number]) Shoulder Goniometric Range of Motion Shoulder Right Active Shoulder ROM WFL Yes Testing Position Sitting Flexion 180 Abduction 180 External Rotation at 0 degrees Abduction 78 Internal Rotation Behind Back (text) T8 Left Active Shoulder ROM WFL No Testing Position Sitting Flexion 105 Abduction 73 External Rotation at 0 degrees Abduction 75 Internal Rotation Behind Back (text) L3 PT-OP-L Special Tests Start: 08/04/24 13:50 Freq: Status: Active Protocol: Document 08/04/24 09:45 DCW (Rec: 08/04/24 14:09 DCW [id number]) Special Tests Shoulder Special Tests Yergason's Biceps Test Results Negative Speed's Biceps Test Results Negative Passive ER Rotator Cuff Test Results Negative Painful Arc Test Results Positive left Lift-Off Rotator Cuff Test Results Negative Fagan Kamar Impingement Test Results Positive left Drop Arm Rotator Cuff Test Results Negative Clunk Test Test Results Negative Belly Press Test Results Negative Apprehension Test Test Results Negative AC Joint Compression Test Results Positive left - severe pain PT-OP-M Strength Start: 08/04/24 13:50 Freq: Status: Active Protocol: Document 08/04/24 09:45 DCW (Rec: 08/04/24 14:09 DCW [id number]) Shoulder Strength Shoulder Manual Muscle Testing Right Flexion 5 Normal Abduction (C5) 5 Normal External Rotation 5 Normal Internal Rotation 5 Normal Horizontal Abduction 5 Normal Left Flexion 4 Good Abduction (C5) 3- Fair- External Rotation 5 Normal Internal Rotation 5 Normal Horizontal Abduction 5 Normal PT-OP-Q Treatments Start: 08/04/24 13:50 Freq: Status: Active Protocol: Document 08/14/24 09:45 DCW (Rec: 08/14/24 10:27 DCW [id number]) Cardio Equipment Upper Body Ergometer (UBE) Duration (Minutes) 5 RPM 60 Seat Position 12 Height 3.5 Therapeutic Exercises Supine Exercises Flexion Supine Exercise Name Shoulder Flexion /c PVC Side bilateral Standing Exercises Body Blade Standing Exercise Name Body Blade - Flexion, Abduction Side left Resistance Yellow Wall ball Standing Exercise Name Ball on wall - CW/CWW in Flex, Abd Wall slides Standing Exercise Name Wall Slides - Flexion, Abduction Side left Manual Therapy Treatment Consent Patient gave verbal consent for manual Yes treatment Soft Tissue Mobilization Upper Trap Body Location L Upper Trap, Pec, Parascapulars Mobilization Type Sustained Pressure,Trigger Point Release Intensity/Depth Moderate Body Position Supine Joint Mobilizations A/C Joint L A/C Direction Inf Grade II Body Position Supine GH Joint L GH Direction Inf Grade III Body Position Supine PT-OP-T Assessment and Plan Start: 08/04/24 13:50 Freq: Status: Active Protocol: Document 08/14/24 09:45 DCW (Rec: 08/14/24 10:27 DCW [id number]) Physical Therapy Assessment Impairments Impairments Functional Activities, Functional Mobility,Pain,ROM, Soft Tissue Mobility,Strength, Tone Goals Three Impairment Pt experienced limited left shoulder abduction (73? AROM) Track Layer Head Goal (LTG) Pt to improve pain-free left AROM to 120? abduction in order to improve her ability to perform associated work activities without pain. LTG Duration 10/04/24 Two Impairment Pt unable to sweep/mop her house without assistance due to shoulder pain Alf Goal (LTG) Pt to report ability to complete sweeping/mopping 50% of her house without increased pain in order to demonstrate increased functional mobility. LTG Duration 10/04/24 One Impairment Pt does not have an appropriate home exercise program Short Term Goal (STG) Pt to be independent and compliant with an appropriate HEP STG Duration 09/03/24 Assessment Summary Assessment Pt exhibits noticeable improvement in ROM following STM and joint mobs today. Tolerated TherEx well, noted some tightness with ROM, especially abduction. Continue to work on general strengthening, functional mobility, activity tolerance, and ROM. Physical Therapy Plan Frequency and Duration Frequency of Treatment 2x/Week Plan of Care Start Date 08/04/24 Plan of Care End Date 10/04/24 Therapeutic Interventions Therapeutic Interventions Home Exercise Program,Joint Mobilizations,Manual Therapy, Neuromuscular Re-education, Patient/Caregiver Education, Self-Care/Home Management,Soft Tissue Mobilization, Therapeutic Activities, Therapeutic Exercises Modalities Cold Pack/Ice Massage,Electric Stimulation,Hot Packs, Ultrasound Next Visit Focus/Plan Next Note Type Treatment Note Next Visit Plan STM, joint mobilizations, strengthening
--- NOTE | 2024-08-18 10:37 | PT.OTN ---
Current Diagnoses Pain in left shoulder (08/18/24) Stiffness of left shoulder, not elsewhere classified (08/18/24) Other specified joint disorders, unspecified shoulder (08/18/24) Unspecified injury of left shoulder and upper arm, initial encounter (08/18/24) Unspecified injury of left shoulder and upper arm, subsequent encounter (08/18/24) Physical Therapy Treatment Note PT-OP-A Visit Information Start: 08/04/24 13:50 Freq: Status: Active Protocol: Document 08/18/24 08:07 AB (Rec: 08/18/24 10:37 AB [id number]) Out-Patient Physical Therapy Visit Information Visit Information Visit Type Treatment Note Visit Note [id number] Visit Start Time 09:48 Visit Stop Time 10:30 Visit Number 3 Number of FULL STACK WEB DEVELOPER Visits 1 Evaluation Information Evaluation Date 08/04/24 PT-OP-B Current Condition Start: 08/04/24 13:50 Freq: Status: Active Protocol: Document 08/04/24 09:45 DCW (Rec: 08/04/24 14:09 DCW [id number]) Current Condition History of Current Condition Onset Date 06/06/24 Current Complaints Left shoulder pain History of Current Condition Pt is a 29 year old female presenting to skilled therapy with a two month history of left shoulder pain. Pt slipped on wet grass while chasing her young son, landing on her left shoulder. Was seen on the day of injury at the walk-in clinic and provided with an x- ray, which was unremarkable. Pain continued, specifically with abduction, and after a follow-up, pt was able to get in for an MRI, which showed mild tendonitis in her supraspinatus and biceps tendons. Pt is still experiencing significant pain two months later. She works at [employer] in a patient- facing position, and admits she has continuous pain with performing job duties, like reaching out to hand paperwork to patients during intake. Additionally has difficulty with housework, like sweeping/ mopping. Had been wearing a sling during the day up until last week for comfort. Still taking 600 mg of Gabapentin 3x /daily due to pain. Reports it feels like someone is constantly pulling down on my arm, like it's really heavy and just hangs there. Prior Treatments and Tests Shoulder x-ray: IMPRESSION: No acute bony abnormality. per Ruy Oliva M.D. on Shoulder MRI: IMPRESSION: 1. Mild tendinosis of the supraspinatus. 2. Mild tendinosis of the intra- articular biceps tendon. Yee Navarro M.D. on 06/29/2024 PT-OP-C Subjective Start: 08/04/24 13:50 Freq: Status: Active Protocol: Document 08/18/24 08:07 AB (Rec: 08/18/24 10:37 AB [id number]) OP-PT Subjective Patient Comments Patient Comments Patient reports she is feeling worse, returned to work after being off after last session with PT, hand has been working daily, has to point to work all day. Patient rates pain 4- 5/10 start of session. Patient reports she had to go back to her full dose of Gabapentin and Ibeuprofin. AROM 124 deg reports limitation is pain start of session left shoulder flexion. PT-OP-F Manual Assessment Start: 08/04/24 13:50 Freq: Status: Active Protocol: Document 08/04/24 09:45 DCW (Rec: 08/04/24 14:09 DCW [id number]) Manual Assessments Soft Tissue Assessment Soft Tissue Mobility Assessment Mild-moderate tone and tenderness to palpation 2/4: pain with wincing along medial angle of the left scapula, left upper trap and scalenes. Moderate tone and tenderness to palpation 3/4: wincing and withdraw at left pec Joint Mobility Assessment Joint Mobility Assessment Significant pain with all palpation of the clavicle, specifically at the a/c and s/ c joints, no step-deformity noted PT-OP-K Range of Motion Start: 08/04/24 13:50 Freq: Status: Active Protocol: Document 08/04/24 09:45 DCW (Rec: 08/04/24 14:09 DCW [id number]) Shoulder Goniometric Range of Motion Shoulder Right Active Shoulder ROM WFL Yes Testing Position Sitting Flexion 180 Abduction 180 External Rotation at 0 degrees Abduction 78 Internal Rotation Behind Back (text) T8 Left Active Shoulder ROM WFL No Testing Position Sitting Flexion 105 Abduction 73 External Rotation at 0 degrees Abduction 75 Internal Rotation Behind Back (text) L3 PT-OP-L Special Tests Start: 08/04/24 13:50 Freq: Status: Active Protocol: Document 08/04/24 09:45 DCW (Rec: 08/04/24 14:09 DCW [id number]) Special Tests Shoulder Special Tests Yergason's Biceps Test Results Negative Speed's Biceps Test Results Negative Passive ER Rotator Cuff Test Results Negative Painful Arc Test Results Positive left Lift-Off Rotator Cuff Test Results Negative Fagan Kamar Impingement Test Results Positive left Drop Arm Rotator Cuff Test Results Negative Clunk Test Test Results Negative Belly Press Test Results Negative Apprehension Test Test Results Negative AC Joint Compression Test Results Positive left - severe pain PT-OP-M Strength Start: 08/04/24 13:50 Freq: Status: Active Protocol: Document 08/04/24 09:45 DCW (Rec: 08/04/24 14:09 DCW [id number]) Shoulder Strength Shoulder Manual Muscle Testing Right Flexion 5 Normal Abduction (C5) 5 Normal External Rotation 5 Normal Internal Rotation 5 Normal Horizontal Abduction 5 Normal Left Flexion 4 Good Abduction (C5) 3- Fair- External Rotation 5 Normal Internal Rotation 5 Normal Horizontal Abduction 5 Normal PT-OP-Q Treatments Start: 08/04/24 13:50 Freq: Status: Active Protocol: Document 08/18/24 08:07 AB (Rec: 08/18/24 10:37 AB [id number]) Therapeutic Exercises Supine Exercises Mini band Supine Exercise Name shoulder ER with band with AROM flexion Side bilateral Resistance level one band Equipment Used HEP Reps/Minutes X10 Comments verbal cues, monitored for pain chest community recreation programmer, pec stretch Supine Exercise Name no foam roller Side bilateral Resistance HEP Equipment Used Verbal and tactile cues for breathing prior to initiation of stretch Reps/Minutes 2 min X 2 Comments verbal and tactile cues for UE position, VC for breathing from diaphragm Standing Exercises Wall slides Standing Exercise Name Wall Slides - Flexion, Side left Equipment Used HEP Reps/Minutes X10 Comments verbal and visual cues, monitored for pain Manual Therapy Treatment Consent Patient gave verbal consent for manual Yes treatment Soft Tissue Mobilization Upper Trap Body Location L Upper Trap, levat scap, scalenes, Pec, Parascapulars Mobilization Type Cross-Friction,Myofascial Release,Rolling,Sustained Pressure Intensity/Depth Moderate Body Position Sitting Comments sitting, supine and sidelying superfical to scalenes Joint Mobilizations scapular mobilization Joint left Direction into depression and adduction Body Position Sidelying Reps/Duration X10 each A/C Joint L A/C Direction Inf Grade II Body Position Sitting GH Joint L GH Direction Inf Grade III Body Position Supine PT-OP-T Assessment and Plan Start: 08/04/24 13:50 Freq: Status: Active Protocol: Document 08/18/24 08:07 AB (Rec: 08/18/24 10:37 AB [id number]) Physical Therapy Assessment Goals Three Impairment Pt experienced limited left shoulder abduction (73? AROM) Assisted Goal (LTG) Pt to improve pain-free left AROM to 120? abduction in order to improve her ability to perform associated work activities without pain. LTG Duration 10/04/24 Two Impairment Pt unable to sweep/mop her house without assistance due to shoulder pain Assisted Goal (LTG) Pt to report ability to complete sweeping/mopping 50% of her house without increased pain in order to demonstrate increased functional mobility. LTG Duration 10/04/24 One Impairment Pt does not have an appropriate home exercise program Short Term Goal (STG) Pt to be independent and compliant with an appropriate HEP STG Duration 09/03/24 Assessment Summary Assessment AROM 151 deg left shoulder flexon end of session, rates pain 6/10 end of session. Physical Therapy Plan Frequency and Duration Frequency of Treatment 2x/Week Plan of Care Start Date 08/04/24 Plan of Care End Date 10/04/24 Next Visit Focus/Plan Next Note Type Treatment Note Next Visit Plan STM, joint mobilizations, strengthening
--- NOTE | 2024-08-21 09:12 | PT.OTN ---
Current Diagnoses Pain in left shoulder (08/21/24) Stiffness of left shoulder, not elsewhere classified (08/21/24) Other specified joint disorders, unspecified shoulder (08/21/24) Unspecified injury of left shoulder and upper arm, initial encounter (08/21/24) Unspecified injury of left shoulder and upper arm, subsequent encounter (08/21/24) Physical Therapy Treatment Note PT-OP-A Visit Information Start: 08/04/24 13:50 Freq: Status: Active Protocol: Document 08/21/24 08:09 AB (Rec: 08/21/24 09:12 AB [id number]) Out-Patient Physical Therapy Visit Information Visit Information Visit Type Treatment Note Visit Note [id number] Visit Start Time 08:17 Visit Stop Time 09:02 Visit Number 4 Number of RIB CUTTER Visits 2 Evaluation Information Evaluation Date 08/04/24 PT-OP-B Current Condition Start: 08/04/24 13:50 Freq: Status: Active Protocol: Document 08/04/24 09:45 DCW (Rec: 08/04/24 14:09 DCW [id number]) Current Condition History of Current Condition Onset Date 06/06/24 Current Complaints Left shoulder pain History of Current Condition Pt is a 29 year old female presenting to skilled therapy with a two month history of left shoulder pain. Pt slipped on wet grass while chasing her young son, landing on her left shoulder. Was seen on the day of injury at the walk-in clinic and provided with an x- ray, which was unremarkable. Pain continued, specifically with abduction, and after a follow-up, pt was able to get in for an MRI, which showed mild tendonitis in her supraspinatus and biceps tendons. Pt is still experiencing significant pain two months later. 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 Additionally has difficulty with housework, like sweeping/ mopping. Had been wearing a sling during the day up until last week for comfort. Still taking 600 mg of Gabapentin 3x /daily due to pain. Reports it feels like someone is constantly pulling down on my arm, like it's really heavy and just hangs there. Prior Treatments and Tests Shoulder x-ray: IMPRESSION: No acute bony abnormality. per Ruy Oliva M.D. on Shoulder MRI: IMPRESSION: 1. Mild tendinosis of the supraspinatus. 2. Mild tendinosis of the intra- articular biceps tendon. Yee Navarro M.D. on 06/29/2024 PT-OP-C Subjective Start: 08/04/24 13:50 Freq: Status: Active Protocol: Document 08/21/24 08:09 AB (Rec: 08/21/24 09:12 AB [id number]) OP-PT Subjective Patient Comments Patient Comments Patient reports she is the same, noticed she could lift a little more the day of last treatment, but then reports UE stiffened. Patient reports she continues to take medication for left UE, rates pain 4/10 left shoulder to elbow with UE tingling. AROM left shoulder start of session 123 deg. PT-OP-F Manual Assessment Start: 08/04/24 13:50 Freq: Status: Active Protocol: Document 08/04/24 09:45 DCW (Rec: 08/04/24 14:09 DCW [id number]) Manual Assessments Soft Tissue Assessment Soft Tissue Mobility Assessment Mild-moderate tone and tenderness to palpation 2/4: pain with wincing along medial angle of the left scapula, left upper trap and scalenes. Moderate tone and tenderness to palpation 3/4: wincing and withdraw at left pec Joint Mobility Assessment Joint Mobility Assessment Significant pain with all palpation of the clavicle, specifically at the a/c and s/ c joints, no step-deformity noted PT-OP-K Range of Motion Start: 08/04/24 13:50 Freq: Status: Active Protocol: Document 08/04/24 09:45 DCW (Rec: 08/04/24 14:09 DCW [id number]) Shoulder Goniometric Range of Motion Shoulder Right Active Shoulder ROM WFL Yes Testing Position Sitting Flexion 180 Abduction 180 External Rotation at 0 degrees Abduction 78 Internal Rotation Behind Back (text) T8 Left Active Shoulder ROM WFL No Testing Position Sitting Flexion 105 Abduction 73 External Rotation at 0 degrees Abduction 75 Internal Rotation Behind Back (text) L3 PT-OP-L Special Tests Start: 08/04/24 13:50 Freq: Status: Active Protocol: Document 08/04/24 09:45 DCW (Rec: 08/04/24 14:09 DCW [id number]) Special Tests Shoulder Special Tests Yerjessica's Biceps Test Results Negative Speed's Biceps Test Results Negative Passive ER Rotator Cuff Test Results Negative Painful Arc Test Results Positive left Lift-Off Rotator Cuff Test Results Negative Fagan Kamar Impingement Test Results Positive left Drop Arm Rotator Cuff Test Results Negative Clunk Test Test Results Negative Belly Press Test Results Negative Apprehension Test Test Results Negative AC Joint Compression Test Results Positive left - severe pain PT-OP-M Strength Start: 08/04/24 13:50 Freq: Status: Active Protocol: Document 08/04/24 09:45 DCW (Rec: 08/04/24 14:09 DCW [id number]) Shoulder Strength Shoulder Manual Muscle Testing Right Flexion 5 Normal Abduction (C5) 5 Normal External Rotation 5 Normal Internal Rotation 5 Normal Horizontal Abduction 5 Normal Left Flexion 4 Good Abduction (C5) 3- Fair- External Rotation 5 Normal Internal Rotation 5 Normal Horizontal Abduction 5 Normal PT-OP-Q Treatments Start: 08/04/24 13:50 Freq: Status: Active Protocol: Document 08/21/24 08:09 AB (Rec: 08/21/24 09:12 AB [id number]) Therapeutic Exercises Supine Exercises Mini band Supine Exercise Name shoulder ER with band with AROM flexion Side bilateral Resistance level one band Equipment Used HEP Reps/Minutes X10 Comments for neuro re ed post manual therapy and pec stretch chest extrusion machine operator, pec stretch Supine Exercise Name no foam roller Side bilateral Resistance HEP Equipment Used Verbal and tactile cues for breathing prior to initiation of stretch Reps/Minutes 2 min Comments post manual, verbal and tact cue of pillow for breathing from diaphragm Sitting Exercises scalene stretch Side left Reps/Minutes 60 sec X 1 Comments verbal and visual cues Standing Exercises Body Blade Standing Exercise Name Body Blade - Flexion, Abduction Side left Resistance yellow fwd eric with band Reps/Minutes X10 each direction Wall ball Standing Exercise Name Ball on wall - CW/CWW in Flex, Abd Side left Reps/Minutes x10 each direction Comments Post manual Wall slides Standing Exercise Name Wall Slides - Flexion, Side left Equipment Used HEP ( stepping with lift off not added to HEP) Reps/Minutes x5 and X8 with stepping wall and lowering without wall Comments post manual Rows Standing Exercise Name Rows Side bilateral Resistance Lv 3 Reps/Minutes X11 bilateral X 6 single arm alt left and right UE Manual Therapy Treatment Consent Patient gave verbal consent for manual Yes treatment Soft Tissue Mobilization Upper Trap Body Location L Upper Trap, levat scap, scalenes, Pec, Parascapulars Mobilization Type Cross-Friction,Myofascial Release,Rolling,Sustained Pressure Intensity/Depth Moderate Body Position Sitting Comments sitting, supine and sidelying superfical to scalenes Joint Mobilizations scapular mobilization Joint left Direction into depression and adduction Body Position Sidelying Reps/Duration X10 each A/C Joint L A/C Direction Inf Grade II Body Position Sitting GH Joint L GH Direction Inf Grade III Body Position Supine PT-OP-T Assessment and Plan Start: 08/04/24 13:50 Freq: Status: Active Protocol: Document 08/21/24 08:09 AB (Rec: 08/21/24 09:12 AB [id number]) Physical Therapy Assessment Goals Three Impairment Pt experienced limited left shoulder abduction (73? AROM) Intermediate Goal (LTG) Pt to improve pain-free left AROM to 120? abduction in order to improve her ability to perform associated work activities without pain. LTG Duration 10/04/24 Two Impairment Pt unable to sweep/mop her house without assistance due to shoulder pain Intermediate Goal (LTG) Pt to report ability to complete sweeping/mopping 50% of her house without increased pain in order to demonstrate increased functional mobility. LTG Duration 10/04/24 One Impairment Pt does not have an appropriate home exercise program Short Term Goal (STG) Pt to be independent and compliant with an appropriate HEP STG Duration 09/03/24 Assessment Summary Assessment 127 deg AROM left shoulder end of session rating pain 0/10 end of session. Physical Therapy Plan Frequency and Duration Frequency of Treatment 2x/Week Plan of Care Start Date 08/04/24 Plan of Care End Date 10/04/24 Next Visit Focus/Plan Next Note Type Treatment Note Next Visit Plan STM, joint mobilizations, strengthening Possibly bent row vs row with band, trial of 1/2 soft foam roller for pec stretch and possibly trial of alt UE flexion
--- NOTE | 2024-08-25 11:32 | PT.OTN ---
Current Diagnoses Pain in left shoulder (08/25/24) Stiffness of left shoulder, not elsewhere classified (08/25/24) Other specified joint disorders, unspecified shoulder (08/25/24) Unspecified injury of left shoulder and upper arm, initial encounter (08/25/24) Unspecified injury of left shoulder and upper arm, subsequent encounter (08/25/24) Physical Therapy Treatment Note PT-OP-A Visit Information Start: 08/04/24 13:50 Freq: Status: Active Protocol: Document 08/25/24 10:45 DCW (Rec: 08/25/24 11:31 DCW [id number]) Out-Patient Physical Therapy Visit Information Visit Information Visit Type Treatment Note Visit Start Time 10:45 Visit Stop Time 11:30 Visit Number 5 Number of ASSISTANT LOAN PROCESSOR Visits 0 Evaluation Information Evaluation Date 08/04/24 PT-OP-B Current Condition Start: 08/04/24 13:50 Freq: Status: Active Protocol: Document 08/04/24 09:45 DCW (Rec: 08/04/24 14:09 DCW [id number]) Current Condition History of Current Condition Onset Date 06/06/24 Current Complaints Left shoulder pain History of Current Condition Pt is a 29 year old female presenting to skilled therapy with a two month history of left shoulder pain. Pt slipped on wet grass while chasing her young son, landing on her left shoulder. Was seen on the day of injury at the walk-in clinic and provided with an x- ray, which was unremarkable. Pain continued, specifically with abduction, and after a follow-up, pt was able to get in for an MRI, which showed mild tendonitis in her supraspinatus and biceps tendons. Pt is still experiencing significant pain two months later. 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 Additionally has difficulty with housework, like sweeping/ mopping. Had been wearing a sling during the day up until last week for comfort. Still taking 600 mg of Gabapentin 3x /daily due to pain. Reports it feels like someone is constantly pulling down on my arm, like it's really heavy and just hangs there. Prior Treatments and Tests Shoulder x-ray: IMPRESSION: No acute bony abnormality. per Ruy Oliva M.D. on Shoulder MRI: IMPRESSION: 1. Mild tendinosis of the supraspinatus. 2. Mild tendinosis of the intra- articular biceps tendon. Yee Navarro M.D. on 06/29/2024 PT-OP-C Subjective Start: 08/04/24 13:50 Freq: Status: Active Protocol: Document 08/25/24 10:45 DCW (Rec: 08/25/24 11:31 DCW [id number]) OP-PT Subjective Patient Comments Patient Comments Pt reports following her last session, she felt like the muscles around her shoulder blade were really tight and in spasm. Took a muscle relaxor and some tylenol, feels better , but still has a little area thats much tighter. PT-OP-F Manual Assessment Start: 08/04/24 13:50 Freq: Status: Active Protocol: Document 08/04/24 09:45 DCW (Rec: 08/04/24 14:09 DCW [id number]) Manual Assessments Soft Tissue Assessment Soft Tissue Mobility Assessment Mild-moderate tone and tenderness to palpation 2/4: pain with wincing along medial angle of the left scapula, left upper trap and scalenes. Moderate tone and tenderness to palpation 3/4: wincing and withdraw at left pec Joint Mobility Assessment Joint Mobility Assessment Significant pain with all palpation of the clavicle, specifically at the a/c and s/ c joints, no step-deformity noted PT-OP-K Range of Motion Start: 08/04/24 13:50 Freq: Status: Active Protocol: Document 08/04/24 09:45 DCW (Rec: 08/04/24 14:09 DCW [id number]) Shoulder Goniometric Range of Motion Shoulder Right Active Shoulder ROM WFL Yes Testing Position Sitting Flexion 180 Abduction 180 External Rotation at 0 degrees Abduction 78 Internal Rotation Behind Back (text) T8 Left Active Shoulder ROM WFL No Testing Position Sitting Flexion 105 Abduction 73 External Rotation at 0 degrees Abduction 75 Internal Rotation Behind Back (text) L3 PT-OP-L Special Tests Start: 08/04/24 13:50 Freq: Status: Active Protocol: Document 08/04/24 09:45 DCW (Rec: 08/04/24 14:09 DCW [id number]) Special Tests Shoulder Special Tests Tevinrjessica's Biceps Test Results Negative Speed's Biceps Test Results Negative Passive ER Rotator Cuff Test Results Negative Painful Arc Test Results Positive left Lift-Off Rotator Cuff Test Results Negative Fagan Kamar Impingement Test Results Positive left Drop Arm Rotator Cuff Test Results Negative Clunk Test Test Results Negative Belly Press Test Results Negative Apprehension Test Test Results Negative AC Joint Compression Test Results Positive left - severe pain PT-OP-M Strength Start: 08/04/24 13:50 Freq: Status: Active Protocol: Document 08/04/24 09:45 DCW (Rec: 08/04/24 14:09 DCW [id number]) Shoulder Strength Shoulder Manual Muscle Testing Right Flexion 5 Normal Abduction (C5) 5 Normal External Rotation 5 Normal Internal Rotation 5 Normal Horizontal Abduction 5 Normal Left Flexion 4 Good Abduction (C5) 3- Fair- External Rotation 5 Normal Internal Rotation 5 Normal Horizontal Abduction 5 Normal PT-OP-Q Treatments Start: 08/04/24 13:50 Freq: Status: Active Protocol: Document 08/25/24 10:45 DCW (Rec: 08/25/24 11:31 DCW [id number]) Manual Therapy Treatment Consent Patient gave verbal consent for manual Yes treatment Soft Tissue Mobilization Upper Trap Body Location L Upper Trap, levat scap, scalenes, Pec, Parascapulars Mobilization Type Cross-Friction,Myofascial Release,Rolling,Sustained Pressure Intensity/Depth Moderate Body Position Supine Joint Mobilizations scapular mobilization Joint left Direction into depression and adduction Body Position Sidelying Reps/Duration X10 each A/C Joint L A/C Direction Inf Grade II Body Position Supine GH Joint L GH Direction Inf Grade III Body Position Supine PT-OP-T Assessment and Plan Start: 08/04/24 13:50 Freq: Status: Active Protocol: Document 08/25/24 10:45 DCW (Rec: 08/25/24 11:31 DCW [id number]) Physical Therapy Assessment Assessment Summary Assessment Spent today focused on STM due to increase in tone/spasm since last appointment. Pt tolerated well, happy with recent improvements. Feels Physical Therapy Plan Frequency and Duration Frequency of Treatment 2x/Week Plan of Care Start Date 08/04/24 Plan of Care End Date 10/04/24 Therapeutic Interventions Therapeutic Interventions Home Exercise Program,Joint Mobilizations,Manual Therapy, Neuromuscular Re-education, Patient/Caregiver Education, Self-Care/Home Management,Soft Tissue Mobilization, Therapeutic Activities, Therapeutic Exercises Modalities Cold Pack/Ice Massage,Electric Stimulation,Hot Packs, Ultrasound Next Visit Focus/Plan Next Note Type Treatment Note Next Visit Plan STM, joint mobilizations, strengthening Possibly bent row vs row with band, trial of 1/2 soft foam roller for pec stretch and possibly trial of alt UE flexion
--- NOTE | 2024-08-31 12:59 | PT.OTN ---
Current Diagnoses Pain in left shoulder (08/31/24) Stiffness of left shoulder, not elsewhere classified (08/31/24) Other specified joint disorders, unspecified shoulder (08/31/24) Unspecified injury of left shoulder and upper arm, initial encounter (08/31/24) Unspecified injury of left shoulder and upper arm, subsequent encounter (08/31/24) Physical Therapy Treatment Note PT-OP-A Visit Information Start: 08/04/24 13:50 Freq: Status: Active Protocol: Document 08/31/24 12:18 DCW (Rec: 08/31/24 12:58 DCW [id number]) Out-Patient Physical Therapy Visit Information Visit Information Visit Type Treatment Note Visit Start Time 12:18 Visit Stop Time 13:00 Visit Number 6 Number of WRAPPER SELECTOR Visits 0 Evaluation Information Evaluation Date 08/04/24 PT-OP-B Current Condition Start: 08/04/24 13:50 Freq: Status: Active Protocol: Document 08/04/24 09:45 DCW (Rec: 08/04/24 14:09 DCW [id number]) Current Condition History of Current Condition Onset Date 06/06/24 Current Complaints Left shoulder pain History of Current Condition Pt is a 29 year old female presenting to skilled therapy with a two month history of left shoulder pain. Pt slipped on wet grass while chasing her young son, landing on her left shoulder. Was seen on the day of injury at the walk-in clinic and provided with an x- ray, which was unremarkable. Pain continued, specifically with abduction, and after a follow-up, pt was able to get in for an MRI, which showed mild tendonitis in her supraspinatus and biceps tendons. Pt is still experiencing significant pain two months later. She works at [employer] in a patient- facing position, and admits she has continuous pain with performing job duties, like reaching out to hand paperwork to patients during intake. Additionally has difficulty with housework, like sweeping/ mopping. Had been wearing a sling during the day up until last week for comfort. Still taking 600 mg of Gabapentin 3x /daily due to pain. Reports it feels like someone is constantly pulling down on my arm, like it's really heavy and just hangs there. Prior Treatments and Tests Shoulder x-ray: IMPRESSION: No acute bony abnormality. per Ruy Oliva M.D. on Shoulder MRI: IMPRESSION: 1. Mild tendinosis of the supraspinatus. 2. Mild tendinosis of the intra- articular biceps tendon. Yee Navarro M.D. on 06/29/2024 PT-OP-C Subjective Start: 08/04/24 13:50 Freq: Status: Active Protocol: Document 08/31/24 12:18 DCW (Rec: 08/31/24 12:58 DCW [id number]) OP-PT Subjective Patient Comments Patient Comments Feeling a lbetter, but has not been able to to really cut back on her pain meds, still taking Gabapentin 2x/day. Has not needed to take muscle relaxor since last week. PT-OP-F Manual Assessment Start: 08/04/24 13:50 Freq: Status: Active Protocol: Document 08/04/24 09:45 DCW (Rec: 08/04/24 14:09 DCW [id number]) Manual Assessments Soft Tissue Assessment Soft Tissue Mobility Assessment Mild-moderate tone and tenderness to palpation 2/4: pain with wincing along medial angle of the left scapula, left upper trap and scalenes. Moderate tone and tenderness to palpation 3/4: wincing and withdraw at left pec Joint Mobility Assessment Joint Mobility Assessment Significant pain with all palpation of the clavicle, specifically at the a/c and s/ c joints, no step-deformity noted PT-OP-K Range of Motion Start: 08/04/24 13:50 Freq: Status: Active Protocol: Document 08/04/24 09:45 DCW (Rec: 08/04/24 14:09 DCW [id number]) Shoulder Goniometric Range of Motion Shoulder Right Active Shoulder ROM WFL Yes Testing Position Sitting Flexion 180 Abduction 180 External Rotation at 0 degrees Abduction 78 Internal Rotation Behind Back (text) T8 Left Active Shoulder ROM WFL No Testing Position Sitting Flexion 105 Abduction 73 External Rotation at 0 degrees Abduction 75 Internal Rotation Behind Back (text) L3 PT-OP-L Special Tests Start: 08/04/24 13:50 Freq: Status: Active Protocol: Document 08/04/24 09:45 DCW (Rec: 08/04/24 14:09 DCW [id number]) Special Tests Shoulder Special Tests Yergason's Biceps Test Results Negative Speed's Biceps Test Results Negative Passive ER Rotator Cuff Test Results Negative Painful Arc Test Results Positive left Lift-Off Rotator Cuff Test Results Negative Fagan Kamar Impingement Test Results Positive left Drop Arm Rotator Cuff Test Results Negative Clunk Test Test Results Negative Belly Press Test Results Negative Apprehension Test Test Results Negative AC Joint Compression Test Results Positive left - severe pain PT-OP-M Strength Start: 08/04/24 13:50 Freq: Status: Active Protocol: Document 08/04/24 09:45 DCW (Rec: 08/04/24 14:09 DCW [id number]) Shoulder Strength Shoulder Manual Muscle Testing Right Flexion 5 Normal Abduction (C5) 5 Normal External Rotation 5 Normal Internal Rotation 5 Normal Horizontal Abduction 5 Normal Left Flexion 4 Good Abduction (C5) 3- Fair- External Rotation 5 Normal Internal Rotation 5 Normal Horizontal Abduction 5 Normal PT-OP-Q Treatments Start: 08/04/24 13:50 Freq: Status: Active Protocol: Document 08/31/24 12:18 DCW (Rec: 08/31/24 12:58 DCW [id number]) Cardio Equipment Upper Body Ergometer (UBE) Duration (Minutes) 5 RPM 60 Seat Position 12 Height 3.5 Therapeutic Exercises Supine Exercises Horizontal Adduction Supine Exercise Name Supine Horizontal [place] Side bilateral Resistance 3# Serratus Punch Supine Exercise Name Serratus Punch Side bilateral Resistance 3# Other Exercises Resisted Side-stepping Other Exercise Name Resisted UE side-stepping Resistance Green Manual Therapy Treatment Consent Patient gave verbal consent for manual Yes treatment Soft Tissue Mobilization Upper Trap Body Location L Upper Trap, levat scap, scalenes, Pec, Parascapulars Mobilization Type Cross-Friction,Myofascial Release,Rolling,Sustained Pressure Intensity/Depth Moderate Body Position Supine Joint Mobilizations scapular mobilization Joint left Direction into depression and adduction Body Position Sidelying Reps/Duration X10 each A/C Joint L A/C Direction Inf Grade II Body Position Supine GH Joint L GH Direction Inf Grade III Body Position Supine PT-OP-T Assessment and Plan Start: 08/04/24 13:50 Freq: Status: Active Protocol: Document 08/31/24 12:18 DCW (Rec: 08/31/24 12:58 DCW [id number]) Physical Therapy Assessment Impairments Impairments Functional Activities, Functional Mobility,Pain,ROM, Soft Tissue Mobility,Strength, Tone Goals Three Impairment Pt experienced limited left shoulder abduction (73? AROM) Pbx Inspector Goal (LTG) Pt to improve pain-free left AROM to 120? abduction in order to improve her ability to perform associated work activities without pain. LTG Duration 10/04/24 Two Impairment Pt unable to sweep/mop her house without assistance due to shoulder pain Alf Goal (LTG) Pt to report ability to complete sweeping/mopping 50% of her house without increased pain in order to demonstrate increased functional mobility. LTG Duration 10/04/24 One Impairment Pt does not have an appropriate home exercise program Short Term Goal (STG) Pt to be independent and compliant with an appropriate HEP STG Duration 09/03/24 Assessment Summary Assessment Pt showing some improvement with overall tone and mobility , pain still causes difficulty with functional mobility and sleeping. Pt also stressed with personal family concerns, which has negatively impacted overall recovery. Physical Therapy Plan Frequency and Duration Frequency of Treatment 2x/Week Plan of Care Start Date 08/04/24 Plan of Care End Date 10/04/24 Therapeutic Interventions Therapeutic Interventions Home Exercise Program,Joint Mobilizations,Manual Therapy, Neuromuscular Re-education, Patient/Caregiver Education, Self-Care/Home Management,Soft Tissue Mobilization, Therapeutic Activities, Therapeutic Exercises Modalities Cold Pack/Ice Massage,Electric Stimulation,Hot Packs, Ultrasound Next Visit Focus/Plan Next Note Type Treatment Note Next Visit Plan STM, joint mobilizations, strengthening Possibly bent row vs row with band, trial of 1/2 soft foam roller for pec stretch and possibly trial of alt UE flexion
--- NOTE | 2024-09-07 13:01 | PT.OTN ---
Current Diagnoses Pain in left shoulder (09/07/24) Stiffness of left shoulder, not elsewhere classified (09/07/24) Other specified joint disorders, unspecified shoulder (09/07/24) Unspecified injury of left shoulder and upper arm, initial encounter (09/07/24) Unspecified injury of left shoulder and upper arm, subsequent encounter (09/07/24) Physical Therapy Treatment Note PT-OP-A Visit Information Start: 08/04/24 13:50 Freq: Status: Active Protocol: Document 09/07/24 12:18 DCW (Rec: 09/07/24 13:01 DCW [id number]) Out-Patient Physical Therapy Visit Information Visit Information Visit Type Treatment Note Visit Start Time 12:18 Visit Stop Time 13:00 Visit Number 7 Number of OCCUPATIONAL MEDICINE OFFICER Visits 0 Evaluation Information Evaluation Date 08/04/24 PT-OP-B Current Condition Start: 08/04/24 13:50 Freq: Status: Active Protocol: Document 08/04/24 09:45 DCW (Rec: 08/04/24 14:09 DCW [id number]) Current Condition History of Current Condition Onset Date 06/06/24 Current Complaints Left shoulder pain History of Current Condition Pt is a 29 year old female presenting to skilled therapy with a two month history of left shoulder pain. Pt slipped on wet grass while chasing her young son, landing on her left shoulder. Was seen on the day of injury at the walk-in clinic and provided with an x- ray, which was unremarkable. Pain continued, specifically with abduction, and after a follow-up, pt was able to get in for an MRI, which showed mild tendonitis in her supraspinatus and biceps tendons. Pt is still experiencing significant pain two months later. 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 Additionally has difficulty with housework, like sweeping/ mopping. Had been wearing a sling during the day up until last week for comfort. Still taking 600 mg of Gabapentin 3x /daily due to pain. Reports it feels like someone is constantly pulling down on my arm, like it's really heavy and just hangs there. Prior Treatments and Tests Shoulder x-ray: IMPRESSION: No acute bony abnormality. per Ruy Oliva M.D. on Shoulder MRI: IMPRESSION: 1. Mild tendinosis of the supraspinatus. 2. Mild tendinosis of the intra- articular biceps tendon. Yee Navarro M.D. on 06/29/2024 PT-OP-C Subjective Start: 08/04/24 13:50 Freq: Status: Active Protocol: Document 09/07/24 12:18 DCW (Rec: 09/07/24 13:01 DCW [id number]) OP-PT Subjective Patient Comments Patient Comments I don't know why, but I've been having a lot of pain. Even doing this (lifts arm into 60? flexion), causes pain and my arm shaking. PT-OP-F Manual Assessment Start: 08/04/24 13:50 Freq: Status: Active Protocol: Document 08/04/24 09:45 DCW (Rec: 08/04/24 14:09 DCW [id number]) Manual Assessments Soft Tissue Assessment Soft Tissue Mobility Assessment Mild-moderate tone and tenderness to palpation 2/4: pain with wincing along medial angle of the left scapula, left upper trap and scalenes. Moderate tone and tenderness to palpation 3/4: wincing and withdraw at left pec Joint Mobility Assessment Joint Mobility Assessment Significant pain with all palpation of the clavicle, specifically at the a/c and s/ c joints, no step-deformity noted PT-OP-K Range of Motion Start: 08/04/24 13:50 Freq: Status: Active Protocol: Document 08/04/24 09:45 DCW (Rec: 08/04/24 14:09 DCW [id number]) Shoulder Goniometric Range of Motion Shoulder Right Active Shoulder ROM WFL Yes Testing Position Sitting Flexion 180 Abduction 180 External Rotation at 0 degrees Abduction 78 Internal Rotation Behind Back (text) T8 Left Active Shoulder ROM WFL No Testing Position Sitting Flexion 105 Abduction 73 External Rotation at 0 degrees Abduction 75 Internal Rotation Behind Back (text) L3 PT-OP-L Special Tests Start: 08/04/24 13:50 Freq: Status: Active Protocol: Document 08/04/24 09:45 DCW (Rec: 08/04/24 14:09 DCW [id number]) Special Tests Shoulder Special Tests Yergason's Biceps Test Results Negative Speed's Biceps Test Results Negative Passive ER Rotator Cuff Test Results Negative Painful Arc Test Results Positive left Lift-Off Rotator Cuff Test Results Negative Fagan Kamar Impingement Test Results Positive left Drop Arm Rotator Cuff Test Results Negative Clunk Test Test Results Negative Belly Press Test Results Negative Apprehension Test Test Results Negative AC Joint Compression Test Results Positive left - severe pain PT-OP-M Strength Start: 08/04/24 13:50 Freq: Status: Active Protocol: Document 08/04/24 09:45 DCW (Rec: 08/04/24 14:09 DCW [id number]) Shoulder Strength Shoulder Manual Muscle Testing Right Flexion 5 Normal Abduction (C5) 5 Normal External Rotation 5 Normal Internal Rotation 5 Normal Horizontal Abduction 5 Normal Left Flexion 4 Good Abduction (C5) 3- Fair- External Rotation 5 Normal Internal Rotation 5 Normal Horizontal Abduction 5 Normal PT-OP-Q Treatments Start: 08/04/24 13:50 Freq: Status: Active Protocol: Document 09/07/24 12:18 DCW (Rec: 09/07/24 13:01 DCW [id number]) Manual Therapy Treatment Consent Patient gave verbal consent for manual Yes treatment Soft Tissue Mobilization Upper Trap Body Location L Upper Trap, levat scap, scalenes, Pec, Parascapulars Mobilization Type Cross-Friction,Myofascial Release,Rolling,Sustained Pressure Intensity/Depth Moderate Body Position Supine Joint Mobilizations scapular mobilization Joint left Direction into depression and adduction Body Position Sidelying Reps/Duration X10 each A/C Joint L A/C Direction Inf Grade II Body Position Supine GH Joint L GH Direction Inf Grade III Body Position Supine PT-OP-T Assessment and Plan Start: 08/04/24 13:50 Freq: Status: Active Protocol: Document 09/07/24 12:18 DCW (Rec: 09/07/24 13:01 DCW [id number]) Physical Therapy Assessment Impairments Impairments Functional Activities, Functional Mobility,Pain,ROM, Soft Tissue Mobility,Strength, Tone Goals Three Impairment Pt experienced limited left shoulder abduction (73? AROM) Burial Vault Setter Goal (LTG) Pt to improve pain-free left AROM to 120? abduction in order to improve her ability to perform associated work activities without pain. LTG Duration 10/04/24 Two Impairment Pt unable to sweep/mop her house without assistance due to shoulder pain Burial Vault Setter Goal (LTG) Pt to report ability to complete sweeping/mopping 50% of her house without increased pain in order to demonstrate increased functional mobility. LTG Duration 10/04/24 One Impairment Pt does not have an appropriate home exercise program Short Term Goal (STG) Pt to be independent and compliant with an appropriate HEP STG Duration 09/03/24 Assessment Summary Assessment Pt very flared-up today, focused on STM to help reduce recent tone and pain increase, advised pt to take it easy with activity this week. Physical Therapy Plan Frequency and Duration Frequency of Treatment 2x/Week Plan of Care Start Date 08/04/24 Plan of Care End Date 10/04/24 Therapeutic Interventions Therapeutic Interventions Home Exercise Program,Joint Mobilizations,Manual Therapy, Neuromuscular Re-education, Patient/Caregiver Education, Self-Care/Home Management,Soft Tissue Mobilization, Therapeutic Activities, Therapeutic Exercises Modalities Cold Pack/Ice Massage,Electric Stimulation,Hot Packs, Ultrasound Next Visit Focus/Plan Next Note Type Treatment Note Next Visit Plan STM, joint mobilizations, strengthening Possibly bent row vs row with band, trial of 1/2 soft foam roller for pec stretch and possibly trial of alt UE flexion
--- NOTE | 2024-09-15 09:07 | PT.OTN ---
Current Diagnoses Pain in left shoulder (09/15/24) Stiffness of left shoulder, not elsewhere classified (09/15/24) Other specified joint disorders, unspecified shoulder (09/15/24) Unspecified injury of left shoulder and upper arm, initial encounter (09/15/24) Unspecified injury of left shoulder and upper arm, subsequent encounter (09/15/24) Physical Therapy Treatment Note PT-OP-A Visit Information Start: 08/04/24 13:50 Freq: Status: Active Protocol: Document 09/15/24 08:08 AB (Rec: 09/15/24 09:07 AB [id number]) Out-Patient Physical Therapy Visit Information Visit Information Visit Type Treatment Note Visit Note [id number] Visit Start Time 08:16 Visit Stop Time 09:00 Visit Number 8 Number of DIRECTOR AMBULATORY Visits 1 Evaluation Information Evaluation Date 08/04/24 PT-OP-B Current Condition Start: 08/04/24 13:50 Freq: Status: Active Protocol: Document 08/04/24 09:45 DCW (Rec: 08/04/24 14:09 DCW [id number]) Current Condition History of Current Condition Onset Date 06/06/24 Current Complaints Left shoulder pain History of Current Condition Pt is a 29 year old female presenting to skilled therapy with a two month history of left shoulder pain. Pt slipped on wet grass while chasing her young son, landing on her left shoulder. Was seen on the day of injury at the walk-in clinic and provided with an x- ray, which was unremarkable. Pain continued, specifically with abduction, and after a follow-up, pt was able to get in for an MRI, which showed mild tendonitis in her supraspinatus and biceps tendons. Pt is still experiencing significant pain two months later. 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 Additionally has difficulty with housework, like sweeping/ mopping. Had been wearing a sling during the day up until last week for comfort. Still taking 600 mg of Gabapentin 3x /daily due to pain. Reports it feels like someone is constantly pulling down on my arm, like it's really heavy and just hangs there. Prior Treatments and Tests Shoulder x-ray: IMPRESSION: No acute bony abnormality. per Ruy Oliva M.D. on Shoulder MRI: IMPRESSION: 1. Mild tendinosis of the supraspinatus. 2. Mild tendinosis of the intra- articular biceps tendon. Yee Navarro M.D. on 06/29/2024 PT-OP-C Subjective Start: 08/04/24 13:50 Freq: Status: Active Protocol: Document 09/15/24 08:08 AB (Rec: 09/15/24 09:07 AB [id number]) OP-PT Subjective Patient Comments Patient Comments Patient reports shoulder has been flared up since previous to last session, comments she has been taking care of mother 's dog and sleeping on couch, comments she went to massage therapy and therapist commented maybe she has a rib out of place, (patient reports having an X ray yesterday). Pt reports having an orth appt Oct 02, 2024. Patient reports she switched to Naproxen. AROM left shoulder flexion 134 deg. PT-OP-F Manual Assessment Start: 08/04/24 13:50 Freq: Status: Active Protocol: Document 08/04/24 09:45 DCW (Rec: 08/04/24 14:09 DCW [id number]) Manual Assessments Soft Tissue Assessment Soft Tissue Mobility Assessment Mild-moderate tone and tenderness to palpation 2/4: pain with wincing along medial angle of the left scapula, left upper trap and scalenes. Moderate tone and tenderness to palpation 3/4: wincing and withdraw at left pec Joint Mobility Assessment Joint Mobility Assessment Significant pain with all palpation of the clavicle, specifically at the a/c and s/ c joints, no step-deformity noted PT-OP-K Range of Motion Start: 08/04/24 13:50 Freq: Status: Active Protocol: Document 08/04/24 09:45 DCW (Rec: 08/04/24 14:09 DCW [id number]) Shoulder Goniometric Range of Motion Shoulder Right Active Shoulder ROM WFL Yes Testing Position Sitting Flexion 180 Abduction 180 External Rotation at 0 degrees Abduction 78 Internal Rotation Behind Back (text) T8 Left Active Shoulder ROM WFL No Testing Position Sitting Flexion 105 Abduction 73 External Rotation at 0 degrees Abduction 75 Internal Rotation Behind Back (text) L3 PT-OP-L Special Tests Start: 08/04/24 13:50 Freq: Status: Active Protocol: Document 08/04/24 09:45 DCW (Rec: 08/04/24 14:09 DCW [id number]) Special Tests Shoulder Special Tests Yergason's Biceps Test Results Negative Speed's Biceps Test Results Negative Passive ER Rotator Cuff Test Results Negative Painful Arc Test Results Positive left Lift-Off Rotator Cuff Test Results Negative Fagan Kamar Impingement Test Results Positive left Drop Arm Rotator Cuff Test Results Negative Clunk Test Test Results Negative Belly Press Test Results Negative Apprehension Test Test Results Negative AC Joint Compression Test Results Positive left - severe pain PT-OP-M Strength Start: 08/04/24 13:50 Freq: Status: Active Protocol: Document 08/04/24 09:45 DCW (Rec: 08/04/24 14:09 DCW [id number]) Shoulder Strength Shoulder Manual Muscle Testing Right Flexion 5 Normal Abduction (C5) 5 Normal External Rotation 5 Normal Internal Rotation 5 Normal Horizontal Abduction 5 Normal Left Flexion 4 Good Abduction (C5) 3- Fair- External Rotation 5 Normal Internal Rotation 5 Normal Horizontal Abduction 5 Normal PT-OP-Q Treatments Start: 08/04/24 13:50 Freq: Status: Active Protocol: Document 09/15/24 08:08 AB (Rec: 09/15/24 09:07 AB [id number]) Therapeutic Exercises Supine Exercises chest lead advisor, pec stretch Supine Exercise Name 1/2 foam roller Side bilateral Equipment Used Verbal and tactile cues for breathing prior to initiation of stretch Reps/Minutes 2 min Comments post manual, verbal and tact cue of pillow for breathing from diaphragm Flexion Supine Exercise Name AROM Side bilateral Reps/Minutes X10 for 10 sec Sitting Exercises External rotation Sitting Exercise Name External rotation Side bilateral Resistance Lv 3 Reps/Minutes X10 Comments janna for pain ( in standing this session) Standing Exercises Body Blade Standing Exercise Name Body Blade - Flexion, Abduction Side left Resistance yellow band Reps/Minutes X 5 each direction Comments monitored for pain, VC for UE position for abd Wall slides Standing Exercise Name Wall Slides - Flexion, Side left Equipment Used HEP ( stepping with lift off not added to HEP) Reps/Minutes X10 Comments post manual Rows Standing Exercise Name Rows Side bilateral Resistance Lv 3 Reps/Minutes X15 Comments Verbal cues for LE position Internal Rotation Standing Exercise Name Internal rotation Side left Resistance Lv 3 Reps/Minutes X10 Comments monitored for pain, verbal cues to perfor m slowly Manual Therapy Treatment Consent Patient gave verbal consent for manual Yes treatment Soft Tissue Mobilization post cuff, Rhomb Body Location L Mobilization Type Cross-Friction,Rolling Intensity/Depth Moderate Body Position Sidelying Upper Trap Body Location L Upper Trap, levat scap, scalenes, Pec, Parascapulars Mobilization Type Cross-Friction,Myofascial Release,Rolling,Sustained Pressure Intensity/Depth Moderate Body Position Supine Joint Mobilizations 1st rib Joint L Direction inf Grade II Body Position Hooklying Reps/Duration X10 X 2 scapular mobilization Joint left Direction into depression and adduction Body Position Sidelying Reps/Duration X10 each A/C Joint L A/C Direction Inf Grade II Body Position Supine GH Joint L GH Direction Inf and AP Grade III Body Position Supine Reps/Duration X10 each X 2 PT-OP-T Assessment and Plan Start: 08/04/24 13:50 Freq: Status: Active Protocol: Document 09/15/24 08:08 AB (Rec: 09/15/24 09:07 AB [id number]) Physical Therapy Assessment Goals Three Impairment Pt experienced limited left shoulder abduction (73? AROM) Fdc Goal (LTG) Pt to improve pain-free left AROM to 120? abduction in order to improve her ability to perform associated work activities without pain. LTG Duration 10/04/24 Two Impairment Pt unable to sweep/mop her house without assistance due to shoulder pain Fdc Goal (LTG) Pt to report ability to complete sweeping/mopping 50% of her house without increased pain in order to demonstrate increased functional mobility. LTG Duration 10/04/24 One Impairment Pt does not have an appropriate home exercise program Short Term Goal (STG) Pt to be independent and compliant with an appropriate HEP STG Duration 09/03/24 Assessment Summary Assessment HEP review today as patient reports she wasn't able to perform HEP. AROM left shoulder 156 deg flex end of session. Physical Therapy Plan Frequency and Duration Frequency of Treatment 2x/Week Plan of Care Start Date 08/04/24 Plan of Care End Date 10/04/24 Next Visit Focus/Plan Next Note Type Treatment Note Next Visit Plan STM, joint mobilizations, strengthening Possibly bent row vs row with band,
--- NOTE | 2024-09-18 10:39 | PT.OTN ---
Current Diagnoses Pain in left shoulder (09/18/24) Stiffness of left shoulder, not elsewhere classified (09/18/24) Other specified joint disorders, unspecified shoulder (09/18/24) Unspecified injury of left shoulder and upper arm, initial encounter (09/18/24) Unspecified injury of left shoulder and upper arm, subsequent encounter (09/18/24) Physical Therapy Treatment Note PT-OP-A Visit Information Start: 08/04/24 13:50 Freq: Status: Active Protocol: Document 09/18/24 08:07 AB (Rec: 09/18/24 10:38 AB [id number]) Out-Patient Physical Therapy Visit Information Visit Information Visit Type Treatment Note Visit Note [id number] Visit Start Time 09:02 Visit Stop Time 09:46 Visit Number 9 Number of HEATING OPERATORS ENGINEER Visits 2 Evaluation Information Evaluation Date 08/04/24 PT-OP-B Current Condition Start: 08/04/24 13:50 Freq: Status: Active Protocol: Document 08/04/24 09:45 DCW (Rec: 08/04/24 14:09 DCW [id number]) Current Condition History of Current Condition Onset Date 06/06/24 Current Complaints Left shoulder pain History of Current Condition Pt is a 29 year old female presenting to skilled therapy with a two month history of left shoulder pain. Pt slipped on wet grass while chasing her young son, landing on her left shoulder. Was seen on the day of injury at the walk-in clinic and provided with an x- ray, which was unremarkable. Pain continued, specifically with abduction, and after a follow-up, pt was able to get in for an MRI, which showed mild tendonitis in her supraspinatus and biceps tendons. Pt is still experiencing significant pain two months later. 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 Additionally has difficulty with housework, like sweeping/ mopping. Had been wearing a sling during the day up until last week for comfort. Still taking 600 mg of Gabapentin 3x /daily due to pain. Reports it feels like someone is constantly pulling down on my arm, like it's really heavy and just hangs there. Prior Treatments and Tests Shoulder x-ray: IMPRESSION: No acute bony abnormality. per Ruy Oliva M.D. on Shoulder MRI: IMPRESSION: 1. Mild tendinosis of the supraspinatus. 2. Mild tendinosis of the intra- articular biceps tendon. Yee Navarro M.D. on 06/29/2024 PT-OP-C Subjective Start: 08/04/24 13:50 Freq: Status: Active Protocol: Document 09/18/24 08:07 AB (Rec: 09/18/24 10:38 AB [id number]) OP-PT Subjective Patient Comments Patient Comments Patient rates left pec pain 3 10 post last session, comments it feels like the kind of pain you need to put pressure on to make it go away. AROM left shoulder AROM 155 deg left shoulder flexion start of session. PT-OP-F Manual Assessment Start: 08/04/24 13:50 Freq: Status: Active Protocol: Document 08/04/24 09:45 DCW (Rec: 08/04/24 14:09 DCW [id number]) Manual Assessments Soft Tissue Assessment Soft Tissue Mobility Assessment Mild-moderate tone and tenderness to palpation 2/4: pain with wincing along medial angle of the left scapula, left upper trap and scalenes. Moderate tone and tenderness to palpation 3/4: wincing and withdraw at left pec Joint Mobility Assessment Joint Mobility Assessment Significant pain with all palpation of the clavicle, specifically at the a/c and s/ c joints, no step-deformity noted PT-OP-K Range of Motion Start: 08/04/24 13:50 Freq: Status: Active Protocol: Document 08/04/24 09:45 DCW (Rec: 08/04/24 14:09 DCW [id number]) Shoulder Goniometric Range of Motion Shoulder Right Active Shoulder ROM WFL Yes Testing Position Sitting Flexion 180 Abduction 180 External Rotation at 0 degrees Abduction 78 Internal Rotation Behind Back (text) T8 Left Active Shoulder ROM WFL No Testing Position Sitting Flexion 105 Abduction 73 External Rotation at 0 degrees Abduction 75 Internal Rotation Behind Back (text) L3 PT-OP-L Special Tests Start: 08/04/24 13:50 Freq: Status: Active Protocol: Document 08/04/24 09:45 DCW (Rec: 08/04/24 14:09 DCW [id number]) Special Tests Shoulder Special Tests Tevinrjessica's Biceps Test Results Negative Speed's Biceps Test Results Negative Passive ER Rotator Cuff Test Results Negative Painful Arc Test Results Positive left Lift-Off Rotator Cuff Test Results Negative Fagan Kamar Impingement Test Results Positive left Drop Arm Rotator Cuff Test Results Negative Clunk Test Test Results Negative Belly Press Test Results Negative Apprehension Test Test Results Negative AC Joint Compression Test Results Positive left - severe pain PT-OP-M Strength Start: 08/04/24 13:50 Freq: Status: Active Protocol: Document 08/04/24 09:45 DCW (Rec: 08/04/24 14:09 DCW [id number]) Shoulder Strength Shoulder Manual Muscle Testing Right Flexion 5 Normal Abduction (C5) 5 Normal External Rotation 5 Normal Internal Rotation 5 Normal Horizontal Abduction 5 Normal Left Flexion 4 Good Abduction (C5) 3- Fair- External Rotation 5 Normal Internal Rotation 5 Normal Horizontal Abduction 5 Normal PT-OP-Q Treatments Start: 08/04/24 13:50 Freq: Status: Active Protocol: Document 09/18/24 08:07 AB (Rec: 09/18/24 10:38 AB [id number]) Therapeutic Exercises Supine Exercises Mini band Supine Exercise Name shoulder ER with band with AROM flexion Side bilateral Resistance level one band Equipment Used HEP Reps/Minutes X10 Comments for neuro re ed post manual therapy and pec stretch Sidelying Exercises shoulder abduction Side left Reps/Minutes X10 Comments verbal cues open book Side bilateral Reps/Minutes X5 for 5 breaths each side Comments Verbal and tactile cues Sitting Exercises scalene stretch Side left Reps/Minutes 60 sec X 1 Comments verbal and visual cues Standing Exercises push up plus Side bilateral Reps/Minutes X10 Comments Verbal and visual cues then repeated verbal cues for bracing/avoid lumbar e Wall ball Standing Exercise Name Ball on wall - CW/CWW in Flex, Abd Side left Reps/Minutes x10 each direction Comments Post manual Wall slides Standing Exercise Name Wall Slides - Flexion, Side left Equipment Used HEP ( stepping with lift off not added to HEP) Reps/Minutes X10 Comments post manual Rows Standing Exercise Name 1. Row 2. high row (HEP) Side bilateral Resistance Lv 3 Reps/Minutes X15 each Comments verbal and visual cues for high row, and how to secure band at home Internal Rotation Standing Exercise Name Internal rotation Side left Resistance Lv 3 Reps/Minutes X10 Comments monitored for pain, verbal cues to perfor m slowly Manual Therapy Treatment Soft Tissue Mobilization Upper Trap Body Location L Upper Trap, levat scap, scalenes, Pec, Parascapulars Mobilization Type Cross-Friction,Myofascial Release,Rolling,Sustained Pressure Intensity/Depth Moderate Body Position Supine Joint Mobilizations 1st rib Joint L Direction inf Grade II Body Position Hooklying Reps/Duration X10 X 2 scapular mobilization Joint left Direction into depression and adduction Body Position Sidelying Reps/Duration X10 each A/C Joint L A/C Direction Inf Grade II Body Position Supine GH Joint L GH Direction Inf and AP Grade III Body Position Supine Reps/Duration X10 each X 2 PT-OP-T Assessment and Plan Start: 08/04/24 13:50 Freq: Status: Active Protocol: Document 09/18/24 08:07 AB (Rec: 09/18/24 10:38 AB [id number]) Physical Therapy Assessment Goals Three Impairment Pt experienced limited left shoulder abduction (73? AROM) Co[employer]ate Goal (LTG) Pt to improve pain-free left AROM to 120? abduction in order to improve her ability to perform associated work activities without pain. LTG Duration 10/04/24 Two Impairment Pt unable to sweep/mop her house without assistance due to shoulder pain Half-Way Goal (LTG) Pt to report ability to complete sweeping/mopping 50% of her house without increased pain in order to demonstrate increased functional mobility. LTG Duration 10/04/24 One Impairment Pt does not have an appropriate home exercise program Short Term Goal (STG) Pt to be independent and compliant with an appropriate HEP STG Duration 09/03/24 Assessment Summary Assessment Left shoulder flexion 161 deg end of session, should allow Justina to reach items placed at higher levels in the home. Physical Therapy Plan Frequency and Duration Frequency of Treatment 2x/Week Plan of Care Start Date 08/04/24 Plan of Care End Date 10/04/24 Next Visit Focus/Plan Next Note Type Treatment Note Next Visit Plan STM, joint mobilizations, strengthening
--- NOTE | 2024-09-22 09:53 | PT.OTN ---
Current Diagnoses Pain in left shoulder (09/22/24) Stiffness of left shoulder, not elsewhere classified (09/22/24) Other specified joint disorders, unspecified shoulder (09/22/24) Unspecified injury of left shoulder and upper arm, initial encounter (09/22/24) Unspecified injury of left shoulder and upper arm, subsequent encounter (09/22/24) Physical Therapy Treatment Note PT-OP-A Visit Information Start: 08/04/24 13:50 Freq: Status: Active Protocol: Document 09/22/24 09:03 DCW (Rec: 09/22/24 09:50 DCW [id number]) Out-Patient Physical Therapy Visit Information Visit Information Visit Type Progress Note Visit Start Time 09:03 Visit Stop Time 09:45 Visit Number 9 Number of TABLE TOP TILE SETTER Visits 0 Evaluation Information Evaluation Date 08/04/24 PT-OP-B Current Condition Start: 08/04/24 13:50 Freq: Status: Active Protocol: Document 08/04/24 09:45 DCW (Rec: 08/04/24 14:09 DCW [id number]) Current Condition History of Current Condition Onset Date 06/06/24 Current Complaints Left shoulder pain History of Current Condition Pt is a 29 year old female presenting to skilled therapy with a two month history of left shoulder pain. Pt slipped on wet grass while chasing her young son, landing on her left shoulder. Was seen on the day of injury at the walk-in clinic and provided with an x- ray, which was unremarkable. Pain continued, specifically with abduction, and after a follow-up, pt was able to get in for an MRI, which showed mild tendonitis in her supraspinatus and biceps tendons. Pt is still experiencing significant pain two months later. 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 Additionally has difficulty with housework, like sweeping/ mopping. Had been wearing a sling during the day up until last week for comfort. Still taking 600 mg of Gabapentin 3x /daily due to pain. Reports it feels like someone is constantly pulling down on my arm, like it's really heavy and just hangs there. Prior Treatments and Tests Shoulder x-ray: IMPRESSION: No acute bony abnormality. per Ruy Oliva M.D. on Shoulder MRI: IMPRESSION: 1. Mild tendinosis of the supraspinatus. 2. Mild tendinosis of the intra- articular biceps tendon. Yee Navarro M.D. on 06/29/2024 PT-OP-C Subjective Start: 08/04/24 13:50 Freq: Status: Active Protocol: Document 09/22/24 09:03 DCW (Rec: 09/22/24 09:50 DCW [id number]) OP-PT Subjective Patient Comments Patient Comments Pt notes she has been sick and coughing a lot, which has really flared up her arm. [place] she was seeing pretty good improvment prior to that. PT-OP-F Manual Assessment Start: 08/04/24 13:50 Freq: Status: Active Protocol: Document 08/04/24 09:45 DCW (Rec: 08/04/24 14:09 DCW [id number]) Manual Assessments Soft Tissue Assessment Soft Tissue Mobility Assessment Mild-moderate tone and tenderness to palpation 2/4: pain with wincing along medial angle of the left scapula, left upper trap and scalenes. Moderate tone and tenderness to palpation 3/4: wincing and withdraw at left pec Joint Mobility Assessment Joint Mobility Assessment Significant pain with all palpation of the clavicle, specifically at the a/c and s/ c joints, no step-deformity noted PT-OP-K Range of Motion Start: 08/04/24 13:50 Freq: Status: Active Protocol: Document 09/22/24 09:03 DCW (Rec: 09/22/24 09:53 DCW [id number]) Shoulder Goniometric Range of Motion Shoulder Left Active Shoulder ROM WFL No Testing Position Sitting Flexion 160 Abduction 114 External Rotation at 0 degrees Abduction 75 Internal Rotation Behind Back (text) T8 PT-OP-L Special Tests Start: 08/04/24 13:50 Freq: Status: Active Protocol: Document 08/04/24 09:45 DCW (Rec: 08/04/24 14:09 DCW [id number]) Special Tests Shoulder Special Tests Yergason's Biceps Test Results Negative Speed's Biceps Test Results Negative Passive ER Rotator Cuff Test Results Negative Painful Arc Test Results Positive left Lift-Off Rotator Cuff Test Results Negative Fagan Kamar Impingement Test Results Positive left Drop Arm Rotator Cuff Test Results Negative Clunk Test Test Results Negative Belly Press Test Results Negative Apprehension Test Test Results Negative AC Joint Compression Test Results Positive left - severe pain PT-OP-M Strength Start: 08/04/24 13:50 Freq: Status: Active Protocol: Document 08/04/24 09:45 DCW (Rec: 08/04/24 14:09 DCW [id number]) Shoulder Strength Shoulder Manual Muscle Testing Right Flexion 5 Normal Abduction (C5) 5 Normal External Rotation 5 Normal Internal Rotation 5 Normal Horizontal Abduction 5 Normal Left Flexion 4 Good Abduction (C5) 3- Fair- External Rotation 5 Normal Internal Rotation 5 Normal Horizontal Abduction 5 Normal PT-OP-Q Treatments Start: 08/04/24 13:50 Freq: Status: Active Protocol: Document 09/22/24 09:03 DCW (Rec: 09/22/24 09:50 DCW [id number]) Therapeutic Exercises Supine Exercises Flexion Supine Exercise Name AROM Side bilateral Reps/Minutes X10 for 10 sec Standing Exercises Overhead Press Standing Exercise Name Overhead Press /c PVC Side bilateral Equipment Used 5# push up plus Side bilateral Reps/Minutes x10 Body Blade Standing Exercise Name Body Blade - Flexion, Abduction Side left Resistance Yellow Reps/Minutes X 5 each direction Comments monitored for pain Flexion Standing Exercise Name Shoulder Flexion Side bilateral Equipment Used 3# Abduction Standing Exercise Name Shoulder Abduction Side bilateral Equipment Used 3# Manual Therapy Treatment Consent Patient gave verbal consent for manual Yes treatment Soft Tissue Mobilization post cuff, [place]omb Body Location L Mobilization Type Cross-Friction,Rolling Intensity/Depth Moderate Body Position Sidelying Upper Trap Body Location L Upper Trap, levat scap, scalenes, Pec, Parascapulars Mobilization Type Cross-Friction,Myofascial Release,Rolling,Sustained Pressure Intensity/Depth Moderate Body Position Supine Joint Mobilizations scapular mobilization Joint left Direction into depression and adduction Body Position Sidelying Reps/Duration X10 each A/C Joint L A/C Direction Inf Grade II Body Position Supine PT-OP-T Assessment and Plan Start: 08/04/24 13:50 Freq: Status: Active Protocol: Document 09/22/24 09:03 DCW (Rec: 09/22/24 09:50 DCW [id number]) Physical Therapy Assessment Impairments Impairments Functional Activities, Functional Mobility,Pain,ROM, Soft Tissue Mobility,Strength, Tone Goals Three Impairment Pt experienced limited left shoulder abduction (73? AROM) [employer] Goal (LTG) Pt to improve pain-free left AROM to 120? abduction in order to improve her ability to perform associated work activities without pain. LTG Duration 10/04/23 Two Impairment Pt unable to sweep/mop her house without assistance due to shoulder pain Manager [employer] Goal (LTG) Pt to report ability to complete sweeping/mopping 50% of her house without increased pain in order to demonstrate increased functional mobility. LTG Duration 10/04/24 One Impairment Pt does not have an appropriate home exercise program Short Term Goal (STG) Pt to be independent and compliant with an appropriate HEP STG Duration 09/03/24 Assessment Summary Assessment Pt showing very good overall improvement with shoulder ROM, flexion improved from 105 to 160, abduction from 73 to 114, although still still limited with muscle tightness and decreased activity tolerance. Continue to focus on STM, strengthening, and functional mobility. Physical Therapy Plan Frequency and Duration Frequency of Treatment 2x/Week Plan of Care Start Date 08/04/24 Plan of Care End Date 10/04/24 Next Visit Focus/Plan Next Note Type Treatment Note Next Visit Plan STM, joint mobilizations, strengthening
--- NOTE | 2024-09-25 08:23 | PT-OP ANOTE ---
Phoned patient regarding not arriving for this morning's appointment. Justina reports she phoned in and left a message to cancel. Patient's voice hoarse with diminished volume. Patient made aware of next appointment time a date.
--- NOTE | 2024-09-29 09:02 | PT.OTN ---
Current Diagnoses Pain in left shoulder (09/29/24) Stiffness of left shoulder, not elsewhere classified (09/29/24) Other specified joint disorders, unspecified shoulder (09/29/24) Unspecified injury of left shoulder and upper arm, initial encounter (09/29/24) Unspecified injury of left shoulder and upper arm, subsequent encounter (09/29/24) Physical Therapy Treatment Note PT-OP-A Visit Information Start: 08/04/24 13:50 Freq: Status: Active Protocol: Document 09/29/24 08:10 AB (Rec: 09/29/24 09:02 AB [id number]) Out-Patient Physical Therapy Visit Information Visit Information Visit Type Treatment Note Visit Note [id number] Visit Start Time 08:16 Visit Stop Time 09:01 Visit Number 10 Number of CLIP ON SUNGLASSES INSPECTOR Visits 1 Evaluation Information Evaluation Date 08/04/24 PT-OP-B Current Condition Start: 08/04/24 13:50 Freq: Status: Active Protocol: Document 08/04/24 09:45 DCW (Rec: 08/04/24 14:09 DCW [id number]) Current Condition History of Current Condition Onset Date 06/06/24 Current Complaints Left shoulder pain History of Current Condition Pt is a 29 year old female presenting to skilled therapy with a two month history of left shoulder pain. Pt slipped on wet grass while chasing her young son, landing on her left shoulder. Was seen on the day of injury at the walk-in clinic and provided with an x- ray, which was unremarkable. Pain continued, specifically with abduction, and after a follow-up, pt was able to get in for an MRI, which showed mild tendonitis in her supraspinatus and biceps tendons. Pt is still experiencing significant pain two months later. 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 Additionally has difficulty with housework, like sweeping/ mopping. Had been wearing a sling during the day up until last week for comfort. Still taking 600 mg of Gabapentin 3x /daily due to pain. Reports it feels like someone is constantly pulling down on my arm, like it's really heavy and just hangs there. Prior Treatments and Tests Shoulder x-ray: IMPRESSION: No acute bony abnormality. per Ruy Oliva M.D. on Shoulder MRI: IMPRESSION: 1. Mild tendinosis of the supraspinatus. 2. Mild tendinosis of the intra- articular biceps tendon. Yee Navarro M.D. on 06/29/2024 PT-OP-C Subjective Start: 08/04/24 13:50 Freq: Status: Active Protocol: Document 09/29/24 08:10 AB (Rec: 09/29/24 09:02 AB [id number]) OP-PT Subjective Patient Comments Patient Comments Justina reports the coughing when she was sick caused her shoulder to flare up, comments she received steriods for the cough and shoulders, which now allows patient to move shoulders with less pain and discomfort. Left shoulder abduction AROM 116 deg. PT-OP-F Manual Assessment Start: 08/04/24 13:50 Freq: Status: Active Protocol: Document 08/04/24 09:45 DCW (Rec: 08/04/24 14:09 DCW [id number]) Manual Assessments Soft Tissue Assessment Soft Tissue Mobility Assessment Mild-moderate tone and tenderness to palpation 2/4: pain with wincing along medial angle of the left scapula, left upper trap and scalenes. Moderate tone and tenderness to palpation 3/4: wincing and withdraw at left pec Joint Mobility Assessment Joint Mobility Assessment Significant pain with all palpation of the clavicle, specifically at the a/c and s/ c joints, no step-deformity noted PT-OP-K Range of Motion Start: 08/04/24 13:50 Freq: Status: Active Protocol: Document 09/22/24 09:03 DCW (Rec: 09/22/24 09:53 DCW [id number]) Shoulder Goniometric Range of Motion Shoulder Left Active Shoulder ROM WFL No Testing Position Sitting Flexion 160 Abduction 114 External Rotation at 0 degrees Abduction 75 Internal Rotation Behind Back (text) T8 PT-OP-L Special Tests Start: 08/04/24 13:50 Freq: Status: Active Protocol: Document 08/04/24 09:45 DCW (Rec: 08/04/24 14:09 DCW [id number]) Special Tests Shoulder Special Tests Yergason's Biceps Test Results Negative Speed's Biceps Test Results Negative Passive ER Rotator Cuff Test Results Negative Painful Arc Test Results Positive left Lift-Off Rotator Cuff Test Results Negative Fagan Kamar Impingement Test Results Positive left Drop Arm Rotator Cuff Test Results Negative Clunk Test Test Results Negative Belly Press Test Results Negative Apprehension Test Test Results Negative AC Joint Compression Test Results Positive left - severe pain PT-OP-M Strength Start: 08/04/24 13:50 Freq: Status: Active Protocol: Document 08/04/24 09:45 DCW (Rec: 08/04/24 14:09 DCW [id number]) Shoulder Strength Shoulder Manual Muscle Testing Right Flexion 5 Normal Abduction (C5) 5 Normal External Rotation 5 Normal Internal Rotation 5 Normal Horizontal Abduction 5 Normal Left Flexion 4 Good Abduction (C5) 3- Fair- External Rotation 5 Normal Internal Rotation 5 Normal Horizontal Abduction 5 Normal PT-OP-Q Treatments Start: 08/04/24 13:50 Freq: Status: Active Protocol: Document 09/29/24 08:10 AB (Rec: 09/29/24 09:02 AB [id number]) Therapeutic Exercises Supine Exercises Horizontal Adduction Supine Exercise Name Supine Horizontal Adducton Side bilateral Resistance 3# Reps/Minutes X15 Serratus Punch Supine Exercise Name Serratus Punch Side bilateral Resistance 3# Reps/Minutes X15 Mini band Supine Exercise Name shoulder ER with band with AROM flexion Side bilateral Resistance level one band Equipment Used HEP Reps/Minutes X10 Comments for neuro re ed post manual therapy and pec stretch chest bi architect, pec stretch Supine Exercise Name 1/2 foam roller Side bilateral Equipment Used Verbal and tactile cues for breathing prior to initiation of stretch Reps/Minutes 2 min and AROM abd X 10 bilaterall Comments vc for breathing from diaphragm, VC for UE's to remain on floor for abd Standing Exercises Overhead Press Standing Exercise Name Overhead Press /c PVC Side bilateral Equipment Used 5# Reps/Minutes X15 Comments back to wall for posture, VC to perform slowly, monitored for pain push up plus Side bilateral Reps/Minutes x10 Comments Verbal and visual cues Body Blade Standing Exercise Name Body Blade - Flexion, Abduction Side left Resistance Yellow Reps/Minutes X 5 each direction Comments monitored for pain Wall slides Standing Exercise Name wall slide abduction Side left Equipment Used with lift off and stepping back lowering without use of wall Rows Standing Exercise Name 1. Row 2. high row (HEP) Side bilateral Resistance Lv 3 Reps/Minutes X15 each Comments verbal and visual cues for high row, and how to secure band at home Internal Rotation Standing Exercise Name Internal rotation Side left Resistance Lv 3 Reps/Minutes X10 Comments monitored for pain, verbal cues to perfor m slowly Manual Therapy Treatment Consent Patient gave verbal consent for manual Yes treatment Soft Tissue Mobilization post cuff, Rhomb Body Location L Mobilization Type Cross-Friction,Rolling Intensity/Depth Moderate Body Position Sidelying Upper Trap Body Location L Upper Trap, levat scap, scalenes, Pec, Parascapulars Mobilization Type Cross-Friction,Myofascial Release,Rolling,Sustained Pressure Intensity/Depth Moderate Body Position Supine Joint Mobilizations 1st rib Joint L Direction inf Grade II Body Position Hooklying Reps/Duration X10 X 2 scapular mobilization Joint left Direction into depression and adduction Body Position Sidelying Reps/Duration X10 each A/C Joint L A/C Direction Inf Grade II Body Position Supine GH Joint L GH Direction Inf and AP Grade III Body Position Supine Reps/Duration X10 each X 3 PT-OP-T Assessment and Plan Start: 08/04/24 13:50 Freq: Status: Active Protocol: Document 09/29/24 08:10 AB (Rec: 09/29/24 09:02 AB [id number]) Physical Therapy Assessment Goals Three Impairment Pt experienced limited left shoulder abduction (73? AROM) Desk Attendant Goal (LTG) Pt to improve pain-free left AROM to 120? abduction in order to improve her ability to perform associated work activities without pain. LTG Duration 10/04/23 Two Impairment Pt unable to sweep/mop her house without assistance due to shoulder pain Senior Care Goal (LTG) Pt to report ability to complete sweeping/mopping 50% of her house without increased pain in order to demonstrate increased functional mobility. LTG Duration 10/04/24 One Impairment Pt does not have an appropriate home exercise program Short Term Goal (STG) Pt to be independent and compliant with an appropriate HEP STG Duration 09/03/24 Assessment Summary Assessment AROM left shoulder abduction 121 then moves into scaption pattern end of session rating pain 0/10 end of session. Physical Therapy Plan Frequency and Duration Frequency of Treatment 2x/Week Plan of Care Start Date 08/04/24 Plan of Care End Date 10/04/24 Next Visit Focus/Plan Next Note Type Treatment Note Next Visit Plan STM, joint mobilizations, strengthening
--- NOTE | 2024-10-02 14:37 | PT.OTN ---
Current Diagnoses Pain in left shoulder (10/02/24) Stiffness of left shoulder, not elsewhere classified (10/02/24) Other specified joint disorders, unspecified shoulder (10/02/24) Unspecified injury of left shoulder and upper arm, initial encounter (10/02/24) Unspecified injury of left shoulder and upper arm, subsequent encounter (10/02/24) Physical Therapy Treatment Note PT-OP-A Visit Information Start: 08/04/24 13:50 Freq: Status: Active Protocol: Document 10/02/24 11:46 AB (Rec: 10/02/24 14:36 AB [id number]) Out-Patient Physical Therapy Visit Information Visit Information Visit Type Treatment Note Visit Note [id number] Visit Start Time 13:02 Visit Stop Time 13:46 Visit Number 11 Number of CUSTOMER SERVICE REPRESENTATIVE Visits 2 Evaluation Information Evaluation Date 08/04/24 PT-OP-B Current Condition Start: 08/04/24 13:50 Freq: Status: Active Protocol: Document 08/04/24 09:45 DCW (Rec: 08/04/24 14:09 DCW [id number]) Current Condition History of Current Condition Onset Date 06/06/24 Current Complaints Left shoulder pain History of Current Condition Pt is a 29 year old female presenting to skilled therapy with a two month history of left shoulder pain. Pt slipped on wet grass while chasing her young son, landing on her left shoulder. Was seen on the day of injury at the walk-in clinic and provided with an x- ray, which was unremarkable. Pain continued, specifically with abduction, and after a follow-up, pt was able to get in for an MRI, which showed mild tendonitis in her supraspinatus and biceps tendons. Pt is still experiencing significant pain two months later. 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 Additionally has difficulty with housework, like sweeping/ mopping. Had been wearing a sling during the day up until last week for comfort. Still taking 600 mg of Gabapentin 3x /daily due to pain. Reports it feels like someone is constantly pulling down on my arm, like it's really heavy and just hangs there. Prior Treatments and Tests Shoulder x-ray: IMPRESSION: No acute bony abnormality. per Ruy Oliva M.D. on Shoulder MRI: IMPRESSION: 1. Mild tendinosis of the supraspinatus. 2. Mild tendinosis of the intra- articular biceps tendon. Yee Navarro M.D. on 06/29/2024 PT-OP-C Subjective Start: 08/04/24 13:50 Freq: Status: Active Protocol: Document 10/02/24 11:46 AB (Rec: 10/02/24 14:36 AB [id number]) OP-PT Subjective Patient Comments Patient Comments Patient reports she had a steroid injection this morning L shoulder, was advised to continue with physical therapy , but recommends an MRI if the tingling continues for 6 weeks. AROM left shoulder flexion 150 start of session. Patient reports PT-OP-F Manual Assessment Start: 08/04/24 13:50 Freq: Status: Active Protocol: Document 08/04/24 09:45 DCW (Rec: 08/04/24 14:09 DCW [id number]) Manual Assessments Soft Tissue Assessment Soft Tissue Mobility Assessment Mild-moderate tone and tenderness to palpation 2/4: pain with wincing along medial angle of the left scapula, left upper trap and scalenes. Moderate tone and tenderness to palpation 3/4: wincing and withdraw at left pec Joint Mobility Assessment Joint Mobility Assessment Significant pain with all palpation of the clavicle, specifically at the a/c and s/ c joints, no step-deformity noted PT-OP-K Range of Motion Start: 08/04/24 13:50 Freq: Status: Active Protocol: Document 09/22/24 09:03 DCW (Rec: 09/22/24 09:53 DCW [id number]) Shoulder Goniometric Range of Motion Shoulder Left Active Shoulder ROM WFL No Testing Position Sitting Flexion 160 Abduction 114 External Rotation at 0 degrees Abduction 75 Internal Rotation Behind Back (text) T8 PT-OP-L Special Tests Start: 08/04/24 13:50 Freq: Status: Active Protocol: Document 08/04/24 09:45 DCW (Rec: 08/04/24 14:09 DCW [id number]) Special Tests Shoulder Special Tests Yergason's Biceps Test Results Negative Speed's Biceps Test Results Negative Passive ER Rotator Cuff Test Results Negative Painful Arc Test Results Positive left Lift-Off Rotator Cuff Test Results Negative Fagan Kamar Impingement Test Results Positive left Drop Arm Rotator Cuff Test Results Negative Clunk Test Test Results Negative Belly Press Test Results Negative Apprehension Test Test Results Negative AC Joint Compression Test Results Positive left - severe pain PT-OP-M Strength Start: 08/04/24 13:50 Freq: Status: Active Protocol: Document 08/04/24 09:45 DCW (Rec: 08/04/24 14:09 DCW [id number]) Shoulder Strength Shoulder Manual Muscle Testing Right Flexion 5 Normal Abduction (C5) 5 Normal External Rotation 5 Normal Internal Rotation 5 Normal Horizontal Abduction 5 Normal Left Flexion 4 Good Abduction (C5) 3- Fair- External Rotation 5 Normal Internal Rotation 5 Normal Horizontal Abduction 5 Normal PT-OP-Q Treatments Start: 08/04/24 13:50 Freq: Status: Active Protocol: Document 10/02/24 11:46 AB (Rec: 10/02/24 14:36 AB [id number]) Therapeutic Exercises Supine Exercises Mini band Supine Exercise Name shoulder ER with band with AROM flexion Side bilateral Resistance level one band Equipment Used HEP Reps/Minutes X10 Comments in standing this session chest real estate transaction manager, pec stretch Supine Exercise Name 1/2 foam roller Side bilateral Equipment Used Verbal and tactile cues for breathing prior to initiation of stretch Reps/Minutes 2 min chest real estate transaction manager X10 alt UE flexion Comments vc for breathing from diaphragm, VC for UE's to remain on floor for abd Sidelying Exercises shoulder ER Sidelying Exercise Name AROM Side bilateral Reps/Minutes X10 shoulder abduction Side left Reps/Minutes X10 X2 Comments verbal cues Standing Exercises cheerleaders Side bilateral Resistance level one band light blue Reps/Minutes 5 X Comments verbal and visual cues push up plus Side bilateral Reps/Minutes x10 Comments Verbal and visual cues Manual Therapy Treatment Soft Tissue Mobilization post cuff, Rhomb Body Location L Mobilization Type Cross-Friction,Rolling Intensity/Depth Moderate Body Position Sidelying Upper Trap Body Location L Upper Trap, levat scap, scalenes, Pec, Parascapulars Mobilization Type Cross-Friction,Myofascial Release,Rolling,Sustained Pressure Intensity/Depth Moderate Body Position Supine Joint Mobilizations scapular mobilization Joint left Direction into depression and adduction Body Position Sidelying Reps/Duration X10 each GH Joint L GH Direction Inf and AP Grade III Body Position Supine Reps/Duration X10 each X 3 Taping kinesio tape Body Location left shoulder Treatment Focus Pain and posture I strip ant GH to scap, I strip unload UT and levat scap Type of Tape Kinesio Tape Skin Inspection WNL Comments Pt ed to remove tape in 3-5 days or immediately if skin irritation occurs insert to origin for UT and levat scap Manual Techniques ice massage left GH Type biceps tendon area L Reps/Duration unil numb Comments skin WNL post PT-OP-T Assessment and Plan Start: 08/04/24 13:50 Freq: Status: Active Protocol: Document 10/02/24 11:46 AB (Rec: 10/02/24 14:36 AB [id number]) Physical Therapy Assessment Goals Three Impairment Pt experienced limited left shoulder abduction (73? AROM) Paper Stacker Goal (LTG) Pt to improve pain-free left AROM to 120? abduction in order to improve her ability to perform associated work activities without pain. LTG Duration 10/04/23 Two Impairment Pt unable to sweep/mop her house without assistance due to shoulder pain Fpc Goal (LTG) Pt to report ability to complete sweeping/mopping 50% of her house without increased pain in order to demonstrate increased functional mobility. LTG Duration 10/04/24 One Impairment Pt does not have an appropriate home exercise program Short Term Goal (STG) Pt to be independent and compliant with an appropriate HEP STG Duration 09/03/24 Assessment Summary Assessment AROM 157 deg left shoulder flexion end of session, reports having no pain end of session. Physical Therapy Plan Frequency and Duration Frequency of Treatment 2x/Week Plan of Care Start Date 08/04/24 Plan of Care End Date 10/04/24 Therapeutic Interventions Therapeutic Interventions Home Exercise Program,Joint Mobilizations,Manual Therapy, Neuromuscular Re-education, Patient/Caregiver Education, Self-Care/Home Management,Soft Tissue Mobilization, Therapeutic Activities, Therapeutic Exercises Modalities Cold Pack/Ice Massage,Electric Stimulation,Hot Packs, Ultrasound Next Visit Focus/Plan Next Note Type Treatment Note Next Visit Plan STM, joint mobilizations, strengthening
--- NOTE | 2024-10-04 13:04 | PT.OTN ---
Current Diagnoses Pain in left shoulder (10/04/24) Stiffness of left shoulder, not elsewhere classified (10/04/24) Other specified joint disorders, unspecified shoulder (10/04/24) Unspecified injury of left shoulder and upper arm, initial encounter (10/04/24) Unspecified injury of left shoulder and upper arm, subsequent encounter (10/04/24) Physical Therapy Treatment Note PT-OP-A Visit Information Start: 08/04/24 13:50 Freq: Status: Active Protocol: Document 10/04/24 12:18 DCW (Rec: 10/04/24 13:04 DCW [id number]) Out-Patient Physical Therapy Visit Information Visit Information Visit Type Progress Note Visit Start Time 12:18 Visit Stop Time 13:00 Visit Number 12 Number of MANUFACTURERS REPRESENTATIVE Visits 0 Evaluation Information Evaluation Date 08/04/24 PT-OP-B Current Condition Start: 08/04/24 13:50 Freq: Status: Active Protocol: Document 08/04/24 09:45 DCW (Rec: 08/04/24 14:09 DCW [id number]) Current Condition History of Current Condition Onset Date 06/06/24 Current Complaints Left shoulder pain History of Current Condition Pt is a 29 year old female presenting to skilled therapy with a two month history of left shoulder pain. Pt slipped on wet grass while chasing her young son, landing on her left shoulder. Was seen on the day of injury at the walk-in clinic and provided with an x- ray, which was unremarkable. Pain continued, specifically with abduction, and after a follow-up, pt was able to get in for an MRI, which showed mild tendonitis in her supraspinatus and biceps tendons. Pt is still experiencing significant pain two months later. 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 Additionally has difficulty with housework, like sweeping/ mopping. Had been wearing a sling during the day up until last week for comfort. Still taking 600 mg of Gabapentin 3x /daily due to pain. Reports it feels like someone is constantly pulling down on my arm, like it's really heavy and just hangs there. Prior Treatments and Tests Shoulder x-ray: IMPRESSION: No acute bony abnormality. per Ruy Oliva M.D. on Shoulder MRI: IMPRESSION: 1. Mild tendinosis of the supraspinatus. 2. Mild tendinosis of the intra- articular biceps tendon. Yee Navarro M.D. on 06/29/2024 PT-OP-C Subjective Start: 08/04/24 13:50 Freq: Status: Active Protocol: Document 10/04/24 12:18 DCW (Rec: 10/04/24 13:04 DCW [id number]) OP-PT Subjective Patient Comments Patient Comments Pt likes the K-tape, feels it helps support her shoulder. Is feeling better following steroid injection, but still feels like she has a lot of tightness and her left arm feels heavy around her a/c joint. PT-OP-F Manual Assessment Start: 08/04/24 13:50 Freq: Status: Active Protocol: Document 10/04/24 12:18 DCW (Rec: 10/04/24 12:40 DCW [id number]) Manual Assessments Joint Mobility Assessment Joint Mobility Assessment Moderate pain with all palpation of the clavicle, specifically at the a/c and s/ c joints, no step-deformity noted PT-OP-K Range of Motion Start: 08/04/24 13:50 Freq: Status: Active Protocol: Document 10/04/24 12:18 DCW (Rec: 10/04/24 12:40 DCW [id number]) Shoulder Goniometric Range of Motion Shoulder Right Active Shoulder ROM WFL Yes Testing Position Sitting Flexion 180 Abduction 180 External Rotation at 0 degrees Abduction 78 Internal Rotation Behind Back (text) T8 Left Active Shoulder ROM WFL No Testing Position Sitting Flexion 164 Abduction 141 External Rotation at 0 degrees Abduction 75 Internal Rotation Behind Back (text) T8 PT-OP-L Special Tests Start: 08/04/24 13:50 Freq: Status: Active Protocol: Document 10/04/24 12:18 DCW (Rec: 10/04/24 12:40 DCW [id number]) Special Tests Shoulder Special Tests Yergason's Biceps Test Results Negative Speed's Biceps Test Results Negative Passive ER Rotator Cuff Test Results Negative Painful Arc Test Results Positive left Lift-Off Rotator Cuff Test Results Negative Fagan Kamar Impingement Test Results Negative Drop Arm Rotator Cuff Test Results Negative Clunk Test Test Results Negative Belly Press Test Results Negative Apprehension Test Test Results Negative AC Joint Compression Test Results Positive left - severe pain PT-OP-M Strength Start: 08/04/24 13:50 Freq: Status: Active Protocol: Document 10/04/24 12:18 DCW (Rec: 10/04/24 12:40 DCW [id number]) Shoulder Strength Shoulder Manual Muscle Testing Right Flexion 5 Normal Abduction (C5) 5 Normal External Rotation 5 Normal Internal Rotation 5 Normal Horizontal Abduction 5 Normal Left Flexion 4 Good Abduction (C5) 3- Fair- External Rotation 5 Normal Internal Rotation 5 Normal Horizontal Abduction 5 Normal PT-OP-Q Treatments Start: 08/04/24 13:50 Freq: Status: Active Protocol: Document 10/04/24 12:18 DCW (Rec: 10/04/24 13:04 DCW [id number]) Manual Therapy Treatment Consent Patient gave verbal consent for manual Yes treatment Soft Tissue Mobilization post cuff, Rhomb Body Location L Mobilization Type Cross-Friction,Rolling Intensity/Depth Moderate Body Position Sidelying Upper Trap Body Location L Upper Trap, levat scap, scalenes, Pec, Parascapulars Mobilization Type Cross-Friction,Myofascial Release,Rolling,Sustained Pressure Intensity/Depth Moderate Body Position Supine Joint Mobilizations 1st rib Joint L Direction inf Grade II Body Position Hooklying Reps/Duration X10 X 2 scapular mobilization Joint left Direction into depression and adduction Body Position Sidelying Reps/Duration X10 each A/C Joint L A/C Direction Inf Grade II Body Position Supine GH Joint L GH Direction Inf and AP Grade III Body Position Supine Reps/Duration X10 each X 3 PT-OP-T Assessment and Plan Start: 08/04/24 13:50 Freq: Status: Active Protocol: Document 10/04/24 12:18 DCW (Rec: 10/04/24 13:04 DCW [id number]) Physical Therapy Assessment Goals Three Impairment Pt experienced limited left shoulder abduction (73? AROM) Short Term Goal (STG) Pt to improve pain-free left AROM to 120? abduction in order to improve her ability to perform associated work activities without pain. STG Duration Met 10/04/24 Senior Living Goal (LTG) Pt to improve pain-free left AROM to 160? abduction in order to improve her ability to perform associated work activities without pain. LTG Duration 12/02/24 Two Impairment Pt unable to sweep/mop her house without assistance due to shoulder pain Senior Living Goal (LTG) Pt to report ability to complete sweeping/mopping 50% of her house without increased pain in order to demonstrate increased functional mobility. LTG Duration 12/02/24 One Impairment Pt does not have an appropriate home exercise program Short Term Goal (STG) Pt to be independent and compliant with an appropriate HEP STG Duration 11/04/23 Assessment Summary Assessment Pt showing some improvement with functional mobility and overall pain. Still has some general tightness and feeling of her arm being heavy and just hanging there. Continues to benefit from manual work to improve mobility of clavicle. Focus on joint stabilization, shoulder strengthening, and improving functional mobility. Physical Therapy Plan Frequency and Duration Frequency of Treatment 2x/Week Plan of Care Start Date 10/04/24 Plan of Care End Date 12/02/24 Therapeutic Interventions Therapeutic Interventions Home Exercise Program,Joint Mobilizations,Manual Therapy, Neuromuscular Re-education, Patient/Caregiver Education, Self-Care/Home Management,Soft Tissue Mobilization, Therapeutic Activities, Therapeutic Exercises Modalities Cold Pack/Ice Massage,Electric Stimulation,Hot Packs, Ultrasound Next Visit Focus/Plan Next Note Type Treatment Note Next Visit Plan STM, joint mobilizations, strengthening
--- NOTE | 2024-10-04 13:04 | PT.OPPOC ---
Physical, Occupational & Speech Therapy At [facility] Current Diagnoses Pain in left shoulder (10/04/24) Stiffness of left shoulder, not elsewhere classified (10/04/24) Other specified joint disorders, unspecified shoulder (10/04/24) Unspecified injury of left shoulder and upper arm, initial encounter (10/04/24) Unspecified injury of left shoulder and upper arm, subsequent encounter (10/04/24) Visit Care Team Role Provider Type Haley Chand DO Primary Care Provider Physician Specialty: Family Practice Address: [address] [place] [address], [address], [place], [address] Email: [email or web address] Ivonne Anderson MD Family Provider Non-Staff Specialty: Medical Address: [address] [place] [address], [id number] Email: Brandy Vang PA-C Attending Provider Advanced Chemical Plant Operator Supervisor Referring Provider Specialty: Medical Wound Care Address: [address] [place] [address], [id number] Email: [email or web address] Plan Of Care PT-OP-B Current Condition Start: 08/04/24 13:50 Freq: Status: Active Protocol: Document 08/04/24 09:45 DCW (Rec: 08/04/24 14:09 DCW [id number]) Current Condition History of Current Condition Onset Date 06/06/24 Current Complaints Left shoulder pain History of Current Condition Pt is a 29 year old female presenting to skilled therapy with a two month history of left shoulder pain. Pt slipped on wet grass while chasing her young son, landing on her left shoulder. Was seen on the day of injury at the walk-in clinic and provided with an x- ray, which was unremarkable. Pain continued, specifically with abduction, and after a follow-up, pt was able to get in for an MRI, which showed mild tendonitis in her supraspinatus and biceps tendons. Pt is still experiencing significant pain two months later. She works at [employer] in a patient- facing position, and admits she has continuous pain with performing job duties, like reaching out to hand paperwork to patients during intake. Additionally has difficulty with housework, like sweeping/ mopping. Had been wearing a sling during the day up until last week for comfort. Still taking 600 mg of Gabapentin 3x /daily due to pain. Reports it feels like someone is constantly pulling down on my arm, like it's really heavy and just hangs there. Prior Treatments and Tests Shoulder x-ray: IMPRESSION: No acute bony abnormality. per Ruy Oliva M.D. on Shoulder MRI: IMPRESSION: 1. Mild tendinosis of the supraspinatus. 2. Mild tendinosis of the intra- articular biceps tendon. Yee Navarro M.D. on 06/29/2024 PT-OP-T Assessment and Plan Start: 08/04/24 13:50 Freq: Status: Active Protocol: Document 10/04/24 12:18 DCW (Rec: 10/04/24 13:04 DCW [id number]) Physical Therapy Assessment Goals Three Impairment Pt experienced limited left shoulder abduction (73? AROM) Short Term Goal (STG) Pt to improve pain-free left AROM to 120? abduction in order to improve her ability to perform associated work activities without pain. STG Duration Met 10/04/24 Halfway Goal (LTG) Pt to improve pain-free left AROM to 160? abduction in order to improve her ability to perform associated work activities without pain. LTG Duration 12/02/24 Two Impairment Pt unable to sweep/mop her house without assistance due to shoulder pain Nondestructive Tester Goal (LTG) Pt to report ability to complete sweeping/mopping 50% of her house without increased pain in order to demonstrate increased functional mobility. LTG Duration 12/02/24 One Impairment Pt does not have an appropriate home exercise program Short Term Goal (STG) Pt to be independent and compliant with an appropriate HEP STG Duration 11/04/23 Assessment Summary Assessment Pt showing some improvement with functional mobility and overall pain. Still has some general tightness and feeling of her arm being heavy and just hanging there. Continues to benefit from manual work to improve mobility of clavicle. Focus on joint stabilization, shoulder strengthening, and improving functional mobility. Physical Therapy Plan Frequency and Duration Frequency of Treatment 2x/Week Plan of Care Start Date 10/04/24 Plan of Care End Date 12/02/24 Therapeutic Interventions Therapeutic Interventions Home Exercise Program,Joint Mobilizations,Manual Therapy, Neuromuscular Re-education, Patient/Caregiver Education, Self-Care/Home Management,Soft Tissue Mobilization, Therapeutic Activities, Therapeutic Exercises Modalities Cold Pack/Ice Massage,Electric Stimulation,Hot Packs, Ultrasound Next Visit Focus/Plan Next Note Type Treatment Note Next Visit Plan STM, joint mobilizations, strengthening Plan of Care Dates Plan of Care Start Date 10/04/24 Plan of Care End Date 12/02/24 Electronically Signed by: Elvis Grimm, PT 10/04/24 4044 If you are in agreement with this Plan of Care, please return a signed and dated copy. I have reviewed this Plan of Care and certify that the skilled therapy services above are required to meet the patient?s needs. Physician Signature Date Printed Name and Credentials Clinical Instructor Signature Printed Name and Credentials
--- NOTE | 2024-10-10 14:29 | PT.OTN ---
Current Diagnoses Pain in left shoulder (10/10/24) Stiffness of left shoulder, not elsewhere classified (10/10/24) Other specified joint disorders, unspecified shoulder (10/10/24) Unspecified injury of left shoulder and upper arm, initial encounter (10/10/24) Unspecified injury of left shoulder and upper arm, subsequent encounter (10/10/24) Physical Therapy Treatment Note PT-OP-A Visit Information Start: 08/04/24 13:50 Freq: Status: Active Protocol: Document 10/10/24 12:34 AB (Rec: 10/10/24 14:28 AB [id number]) Out-Patient Physical Therapy Visit Information Visit Information Visit Type Treatment Note Visit Start Time 13:02 Visit Stop Time 13:48 Visit Number 13 Number of ELECTROPLATER AUTOMATIC Visits 1 Evaluation Information Evaluation Date 08/04/24 PT-OP-B Current Condition Start: 08/04/24 13:50 Freq: Status: Active Protocol: Document 08/04/24 09:45 DCW (Rec: 08/04/24 14:09 DCW [id number]) Current Condition History of Current Condition Onset Date 06/06/24 Current Complaints Left shoulder pain History of Current Condition Pt is a 29 year old female presenting to skilled therapy with a two month history of left shoulder pain. Pt slipped on wet grass while chasing her young son, landing on her left shoulder. Was seen on the day of injury at the walk-in clinic and provided with an x- ray, which was unremarkable. Pain continued, specifically with abduction, and after a follow-up, pt was able to get in for an MRI, which showed mild tendonitis in her supraspinatus and biceps tendons. Pt is still experiencing significant pain two months later. She works at [employer] in a patient- facing position, and admits she has continuous pain with performing job duties, like reaching out to hand paperwork to patients during intake. Additionally has difficulty with housework, like sweeping/ mopping. Had been wearing a sling during the day up until last week for comfort. Still taking 600 mg of Gabapentin 3x /daily due to pain. Reports it feels like someone is constantly pulling down on my arm, like it's really heavy and just hangs there. Prior Treatments and Tests Shoulder x-ray: IMPRESSION: No acute bony abnormality. per Ruy Oliva M.D. on Shoulder MRI: IMPRESSION: 1. Mild tendinosis of the supraspinatus. 2. Mild tendinosis of the intra- articular biceps tendon. Yee Navarro M.D. on 06/29/2024 PT-OP-C Subjective Start: 08/04/24 13:50 Freq: Status: Active Protocol: Document 10/10/24 12:34 AB (Rec: 10/10/24 14:28 AB [id number]) OP-PT Subjective Patient Comments Patient Comments Patient reports she has had to take the Gabapentin again, tingling is back, but is more intense in a smaller area ant shoulder. AROM 154 deg L shoulder flexion start of session. PT-OP-F Manual Assessment Start: 08/04/24 13:50 Freq: Status: Active Protocol: Document 10/04/24 12:18 DCW (Rec: 10/04/24 12:40 DCW [id number]) Manual Assessments Joint Mobility Assessment Joint Mobility Assessment Moderate pain with all palpation of the clavicle, specifically at the a/c and s/ c joints, no step-deformity noted PT-OP-K Range of Motion Start: 08/04/24 13:50 Freq: Status: Active Protocol: Document 10/04/24 12:18 DCW (Rec: 10/04/24 12:40 DCW [id number]) Shoulder Goniometric Range of Motion Shoulder Right Active Shoulder ROM WFL Yes Testing Position Sitting Flexion 180 Abduction 180 External Rotation at 0 degrees Abduction 78 Internal Rotation Behind Back (text) T8 Left Active Shoulder ROM WFL No Testing Position Sitting Flexion 164 Abduction 141 External Rotation at 0 degrees Abduction 75 Internal Rotation Behind Back (text) T8 PT-OP-L Special Tests Start: 08/04/24 13:50 Freq: Status: Active Protocol: Document 10/04/24 12:18 DCW (Rec: 10/04/24 12:40 DCW [id number]) Special Tests Shoulder Special Tests Yergason's Biceps Test Results Negative Speed's Biceps Test Results Negative Passive ER Rotator Cuff Test Results Negative Painful Arc Test Results Positive left Lift-Off Rotator Cuff Test Results Negative Fagan Kamar Impingement Test Results Negative Drop Arm Rotator Cuff Test Results Negative Clunk Test Test Results Negative Belly Press Test Results Negative Apprehension Test Test Results Negative AC Joint Compression Test Results Positive left - severe pain PT-OP-M Strength Start: 08/04/24 13:50 Freq: Status: Active Protocol: Document 10/04/24 12:18 DCW (Rec: 10/04/24 12:40 DCW [id number]) Shoulder Strength Shoulder Manual Muscle Testing Right Flexion 5 Normal Abduction (C5) 5 Normal External Rotation 5 Normal Internal Rotation 5 Normal Horizontal Abduction 5 Normal Left Flexion 4 Good Abduction (C5) 3- Fair- External Rotation 5 Normal Internal Rotation 5 Normal Horizontal Abduction 5 Normal PT-OP-Q Treatments Start: 08/04/24 13:50 Freq: Status: Active Protocol: Document 10/10/24 12:34 AB (Rec: 10/10/24 14:28 AB [id number]) Therapeutic Exercises Sidelying Exercises shoulder ER Sidelying Exercise Name AROM Side bilateral Reps/Minutes X10 shoulder abduction Side left Reps/Minutes X 2 then X 10 post taping and isce massage Comments verbal cues open book Side bilateral Reps/Minutes X10 for 5 breaths each side Comments Verbal and tactile cues Sitting Exercises scalene stretch Side left Reps/Minutes 60 sec X 1 Comments verbal and visual cues Standing Exercises pec stretch Standing Exercise Name single arm pec stretch Reps/Minutes 60 sec each UE Comments On door verbal and visual cues Manual Therapy Treatment Consent Patient gave verbal consent for manual Yes treatment Soft Tissue Mobilization post cuff, Rhomb Body Location L Mobilization Type Cross-Friction,Rolling Intensity/Depth Moderate Body Position Sidelying Upper Trap Body Location L Upper Trap, levat scap, scalenes, Pec, Parascapulars Mobilization Type Cross-Friction,Myofascial Release,Rolling,Sustained Pressure Intensity/Depth Moderate Body Position Supine Joint Mobilizations scapular mobilization Joint left Direction into depression and adduction Body Position Sidelying Reps/Duration X10 each GH Joint L GH Direction Inf and AP Grade III Body Position Supine Reps/Duration X10 each X 3 Taping kinesio tape Body Location left shoulder Treatment Focus Pain and posture I strip ant GH to scap, I strip unload UT and levat scap Type of Tape Kinesio Tape Skin Inspection WNL Comments Pt ed to remove tape in 3-5 days or immediately if skin irritation occurs insert to origin for UT and levat scap Manual Techniques ice massage left GH Type biceps tendon area L Reps/Duration unil numb Comments skin WNL post PT-OP-T Assessment and Plan Start: 08/04/24 13:50 Freq: Status: Active Protocol: Document 10/10/24 12:34 AB (Rec: 10/10/24 14:28 AB [id number]) Physical Therapy Assessment Goals Three Impairment Pt experienced limited left shoulder abduction (73? AROM) Short Term Goal (STG) Pt to improve pain-free left AROM to 120? abduction in order to improve her ability to perform associated work activities without pain. STG Duration Met 10/04/24 Senior Sales Director Goal (LTG) Pt to improve pain-free left AROM to 160? abduction in order to improve her ability to perform associated work activities without pain. LTG Duration 12/02/24 Two Impairment Pt unable to sweep/mop her house without assistance due to shoulder pain Senior Sales Director Goal (LTG) Pt to report ability to complete sweeping/mopping 50% of her house without increased pain in order to demonstrate increased functional mobility. LTG Duration 12/02/24 One Impairment Pt does not have an appropriate home exercise program Short Term Goal (STG) Pt to be independent and compliant with an appropriate HEP STG Duration 11/04/23 Assessment Summary Assessment AROM left shoulder flexion 159 deg, reports no pain, but L UE is tingling. Physical Therapy Plan Frequency and Duration Frequency of Treatment 2x/Week Plan of Care Start Date 10/04/24 Plan of Care End Date 12/02/24 Next Visit Focus/Plan Next Note Type Treatment Note Next Visit Plan STM, joint mobilizations, strengthening
--- NOTE | 2024-10-13 12:54 | PT.OTN ---
Current Diagnoses Pain in left shoulder (10/13/24) Stiffness of left shoulder, not elsewhere classified (10/13/24) Other specified joint disorders, unspecified shoulder (10/13/24) Unspecified injury of left shoulder and upper arm, initial encounter (10/13/24) Unspecified injury of left shoulder and upper arm, subsequent encounter (10/13/24) Physical Therapy Treatment Note PT-OP-A Visit Information Start: 08/04/24 13:50 Freq: Status: Active Protocol: Document 10/13/24 12:19 DCW (Rec: 10/13/24 12:54 DCW [id number]) Out-Patient Physical Therapy Visit Information Visit Information Visit Type Treatment Note Visit Note Pt requests ending early due to getting her daughter to an appointment Visit Start Time 12:19 Visit Stop Time 12:50 Visit Number 14 Number of PARLOR CHAPERONE Visits 0 Evaluation Information Evaluation Date 08/04/24 PT-OP-B Current Condition Start: 08/04/24 13:50 Freq: Status: Active Protocol: Document 08/04/24 09:45 DCW (Rec: 08/04/24 14:09 DCW [id number]) Current Condition History of Current Condition Onset Date 06/06/24 Current Complaints Left shoulder pain History of Current Condition Pt is a 29 year old female presenting to skilled therapy with a two month history of left shoulder pain. Pt slipped on wet grass while chasing her young son, landing on her left shoulder. Was seen on the day of injury at the walk-in clinic and provided with an x- ray, which was unremarkable. Pain continued, specifically with abduction, and after a follow-up, pt was able to get in for an MRI, which showed mild tendonitis in her supraspinatus and biceps tendons. Pt is still experiencing significant pain two months later. 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 Additionally has difficulty with housework, like sweeping/ mopping. Had been wearing a sling during the day up until last week for comfort. Still taking 600 mg of Gabapentin 3x /daily due to pain. Reports it feels like someone is constantly pulling down on my arm, like it's really heavy and just hangs there. Prior Treatments and Tests Shoulder x-ray: IMPRESSION: No acute bony abnormality. per Ruy Oliva M.D. on Shoulder MRI: IMPRESSION: 1. Mild tendinosis of the supraspinatus. 2. Mild tendinosis of the intra- articular biceps tendon. Yee Navarro M.D. on 06/29/2024 PT-OP-C Subjective Start: 08/04/24 13:50 Freq: Status: Active Protocol: Document 10/13/24 12:19 DCW (Rec: 10/13/24 12:54 DCW [id number]) OP-PT Subjective Patient Comments Patient Comments Pt agrees with assessment that mobility has improved quite a bit, but the pain and discomfort has not really changed. Notes discomfort seems to have increased with recent cold weather PT-OP-F Manual Assessment Start: 08/04/24 13:50 Freq: Status: Active Protocol: Document 10/04/24 12:18 DCW (Rec: 10/04/24 12:40 DCW [id number]) Manual Assessments Joint Mobility Assessment Joint Mobility Assessment Moderate pain with all palpation of the clavicle, specifically at the a/c and s/ c joints, no step-deformity noted PT-OP-K Range of Motion Start: 08/04/24 13:50 Freq: Status: Active Protocol: Document 10/04/24 12:18 DCW (Rec: 10/04/24 12:40 DCW [id number]) Shoulder Goniometric Range of Motion Shoulder Right Active Shoulder ROM WFL Yes Testing Position Sitting Flexion 180 Abduction 180 External Rotation at 0 degrees Abduction 78 Internal Rotation Behind Back (text) T8 Left Active Shoulder ROM WFL No Testing Position Sitting Flexion 164 Abduction 141 External Rotation at 0 degrees Abduction 75 Internal Rotation Behind Back (text) T8 PT-OP-L Special Tests Start: 08/04/24 13:50 Freq: Status: Active Protocol: Document 10/04/24 12:18 DCW (Rec: 10/04/24 12:40 DCW [id number]) Special Tests Shoulder Special Tests Yergason's Biceps Test Results Negative Speed's Biceps Test Results Negative Passive ER Rotator Cuff Test Results Negative Painful Arc Test Results Positive left Lift-Off Rotator Cuff Test Results Negative Fagan Kamar Impingement Test Results Negative Drop Arm Rotator Cuff Test Results Negative Clunk Test Test Results Negative Belly Press Test Results Negative Apprehension Test Test Results Negative AC Joint Compression Test Results Positive left - severe pain PT-OP-M Strength Start: 08/04/24 13:50 Freq: Status: Active Protocol: Document 10/04/24 12:18 DCW (Rec: 10/04/24 12:40 DCW [id number]) Shoulder Strength Shoulder Manual Muscle Testing Right Flexion 5 Normal Abduction (C5) 5 Normal External Rotation 5 Normal Internal Rotation 5 Normal Horizontal Abduction 5 Normal Left Flexion 4 Good Abduction (C5) 3- Fair- External Rotation 5 Normal Internal Rotation 5 Normal Horizontal Abduction 5 Normal PT-OP-Q Treatments Start: 08/04/24 13:50 Freq: Status: Active Protocol: Document 10/13/24 12:19 DCW (Rec: 10/13/24 12:54 DCW [id number]) Manual Therapy Treatment Consent Patient gave verbal consent for manual Yes treatment Soft Tissue Mobilization post cuff, Rhomb Body Location L Mobilization Type Cross-Friction,Rolling Intensity/Depth Moderate Body Position Sidelying Upper Trap Body Location L Upper Trap, levat scap, scalenes, Pec, Parascapulars Mobilization Type Cross-Friction,Myofascial Release,Rolling,Sustained Pressure Intensity/Depth Moderate Body Position Supine Joint Mobilizations 1st rib Joint L Direction inf Grade II Body Position Hooklying Reps/Duration X10 X 2 scapular mobilization Joint left Direction into depression and adduction Body Position Sidelying Reps/Duration X10 each A/C Joint L A/C Direction Inf Grade II Body Position Supine GH Joint L GH Direction Inf and AP Grade III Body Position Supine Reps/Duration X10 each X 3 PT-OP-T Assessment and Plan Start: 08/04/24 13:50 Freq: Status: Active Protocol: Document 10/13/24 12:19 DCW (Rec: 10/13/24 12:54 DCW [id number]) Physical Therapy Assessment Impairments Impairments Functional Activities, Functional Mobility,Pain,ROM, Soft Tissue Mobility,Strength, Tone Goals Three Impairment Pt experienced limited left shoulder abduction (73? AROM) Short Term Goal (STG) Pt to improve pain-free left AROM to 120? abduction in order to improve her ability to perform associated work activities without pain. STG Duration Met 10/04/24 Filtering Machine Tender Helper Goal (LTG) Pt to improve pain-free left AROM to 160? abduction in order to improve her ability to perform associated work activities without pain. LTG Duration 12/02/24 Two Impairment Pt unable to sweep/mop her house without assistance due to shoulder pain Filtering Machine Tender Helper Goal (LTG) Pt to report ability to complete sweeping/mopping 50% of her house without increased pain in order to demonstrate increased functional mobility. LTG Duration 12/02/24 One Impairment Pt does not have an appropriate home exercise program Short Term Goal (STG) Pt to be independent and compliant with an appropriate HEP STG Duration 11/04/23 Assessment Summary Assessment Pt showing some sings of her biceps tendonitis worsening, likely due to compensatory movements to limit active shoulder motion at work. Very sore today directly at bicipital groove. Discussed strategies to decrease work load. Continue to focus on shoulder strengthening and mobility as tolerated. Physical Therapy Plan Frequency and Duration Frequency of Treatment 2x/Week Plan of Care Start Date 10/04/24 Plan of Care End Date 12/02/24 Therapeutic Interventions Therapeutic Interventions Home Exercise Program,Joint Mobilizations,Manual Therapy, Neuromuscular Re-education, Patient/Caregiver Education, Self-Care/Home Management,Soft Tissue Mobilization, Therapeutic Activities, Therapeutic Exercises Modalities Cold Pack/Ice Massage,Electric Stimulation,Hot Packs, Ultrasound Next Visit Focus/Plan Next Note Type Treatment Note Next Visit Plan STM, joint mobilizations, strengthening
--- NOTE | 2024-10-18 10:23 | PT.OTN ---
Current Diagnoses Pain in left shoulder (10/18/24) Stiffness of left shoulder, not elsewhere classified (10/18/24) Other specified joint disorders, unspecified shoulder (10/18/24) Unspecified injury of left shoulder and upper arm, initial encounter (10/18/24) Unspecified injury of left shoulder and upper arm, subsequent encounter (10/18/24) Physical Therapy Treatment Note PT-OP-A Visit Information Start: 08/04/24 13:50 Freq: Status: Active Protocol: Document 10/18/24 08:11 AB (Rec: 10/18/24 10:23 AB [id number]) Out-Patient Physical Therapy Visit Information Visit Information Visit Type Treatment Note Visit Start Time 09:04 Visit Stop Time 09:56 Visit Number 15 Number of TELETYPESETTER OPERATOR Visits 1 Evaluation Information Evaluation Date 08/04/24 PT-OP-B Current Condition Start: 08/04/24 13:50 Freq: Status: Active Protocol: Document 08/04/24 09:45 DCW (Rec: 08/04/24 14:09 DCW [id number]) Current Condition History of Current Condition Onset Date 06/06/24 Current Complaints Left shoulder pain History of Current Condition Pt is a 29 year old female presenting to skilled therapy with a two month history of left shoulder pain. Pt slipped on wet grass while chasing her young son, landing on her left shoulder. Was seen on the day of injury at the walk-in clinic and provided with an x- ray, which was unremarkable. Pain continued, specifically with abduction, and after a follow-up, pt was able to get in for an MRI, which showed mild tendonitis in her supraspinatus and biceps tendons. Pt is still experiencing significant pain two months later. 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 Additionally has difficulty with housework, like sweeping/ mopping. Had been wearing a sling during the day up until last week for comfort. Still taking 600 mg of Gabapentin 3x /daily due to pain. Reports it feels like someone is constantly pulling down on my arm, like it's really heavy and just hangs there. Prior Treatments and Tests Shoulder x-ray: IMPRESSION: No acute bony abnormality. per Ruy Oliva M.D. on Shoulder MRI: IMPRESSION: 1. Mild tendinosis of the supraspinatus. 2. Mild tendinosis of the intra- articular biceps tendon. Yee Navarro M.D. on 06/29/2024 PT-OP-C Subjective Start: 08/04/24 13:50 Freq: Status: Active Protocol: Document 10/18/24 08:11 AB (Rec: 10/18/24 10:23 AB [id number]) OP-PT Subjective Patient Comments Patient Comments Merlene reports she fell yesterday on the ice onto her R elbow, comments right arm is sore and back is sore. Patient report she didn't land on left UE, but comments the left UE feels stiff. AROM left shoulder flexion 157 deg start of session. PT-OP-F Manual Assessment Start: 08/04/24 13:50 Freq: Status: Active Protocol: Document 10/04/24 12:18 DCW (Rec: 10/04/24 12:40 DCW [id number]) Manual Assessments Joint Mobility Assessment Joint Mobility Assessment Moderate pain with all palpation of the clavicle, specifically at the a/c and s/ c joints, no step-deformity noted PT-OP-K Range of Motion Start: 08/04/24 13:50 Freq: Status: Active Protocol: Document 10/04/24 12:18 DCW (Rec: 10/04/24 12:40 DCW [id number]) Shoulder Goniometric Range of Motion Shoulder Right Active Shoulder ROM WFL Yes Testing Position Sitting Flexion 180 Abduction 180 External Rotation at 0 degrees Abduction 78 Internal Rotation Behind Back (text) T8 Left Active Shoulder ROM WFL No Testing Position Sitting Flexion 164 Abduction 141 External Rotation at 0 degrees Abduction 75 Internal Rotation Behind Back (text) T8 PT-OP-L Special Tests Start: 08/04/24 13:50 Freq: Status: Active Protocol: Document 10/04/24 12:18 DCW (Rec: 10/04/24 12:40 DCW [id number]) Special Tests Shoulder Special Tests Yergason's Biceps Test Results Negative Speed's Biceps Test Results Negative Passive ER Rotator Cuff Test Results Negative Painful Arc Test Results Positive left Lift-Off Rotator Cuff Test Results Negative Fagan Kamar Impingement Test Results Negative Drop Arm Rotator Cuff Test Results Negative Clunk Test Test Results Negative Belly Press Test Results Negative Apprehension Test Test Results Negative AC Joint Compression Test Results Positive left - severe pain PT-OP-M Strength Start: 08/04/24 13:50 Freq: Status: Active Protocol: Document 10/04/24 12:18 DCW (Rec: 10/04/24 12:40 DCW [id number]) Shoulder Strength Shoulder Manual Muscle Testing Right Flexion 5 Normal Abduction (C5) 5 Normal External Rotation 5 Normal Internal Rotation 5 Normal Horizontal Abduction 5 Normal Left Flexion 4 Good Abduction (C5) 3- Fair- External Rotation 5 Normal Internal Rotation 5 Normal Horizontal Abduction 5 Normal PT-OP-Q Treatments Start: 08/04/24 13:50 Freq: Status: Active Protocol: Document 10/18/24 08:11 AB (Rec: 10/18/24 10:23 AB [id number]) Therapeutic Exercises Supine Exercises Horizontal Adduction Supine Exercise Name Supine Horizontal Adducton Side left Resistance 3# Reps/Minutes X15 Serratus Punch Supine Exercise Name Serratus Punch Side left Resistance 3# Reps/Minutes X15 Mini band Supine Exercise Name shoulder ER with band with AROM flexion Side left Resistance level one band Equipment Used HEP Reps/Minutes X10 Comments monitored for pain chest engineer specialist, pec stretch Supine Exercise Name 1/2 foam roller Side bilateral Equipment Used Verbal and tactile cues for breathing prior to initiation of stretch Reps/Minutes 2 min chest engineer specialist X10 alt UE flexion Comments vc for breathing from diaphragm, VC for UE's to remain on floor for abd Flexion Supine Exercise Name AROM Alt UE flex on 1/2 foam roller Side bilateral Reps/Minutes X10 Sidelying Exercises open book Side left Reps/Minutes X10 for 5 breaths each side Comments Verbal and tactile cues Standing Exercises cheerleaders Side bilateral Resistance level one band light blue Reps/Minutes 5 X Comments verbal and visual cues Manual Therapy Treatment Consent Patient gave verbal consent for manual Yes treatment Soft Tissue Mobilization post cuff, Rhomb Body Location L Mobilization Type Cross-Friction,Rolling Intensity/Depth Moderate Body Position Sidelying Upper Trap Body Location L Upper Trap, levat scap, scalenes, Pec, Parascapulars Mobilization Type Cross-Friction,Myofascial Release,Rolling,Sustained Pressure Intensity/Depth Moderate Body Position Sidelying Comments and hooklying Joint Mobilizations scapular mobilization Joint left Direction into depression and adduction Body Position Sidelying Reps/Duration X10 each GH Joint L GH Direction Inf and AP Grade III Body Position Supine Reps/Duration X10 each X 3 Taping kinesio tape Body Location left shoulder Treatment Focus Pain and posture I strip ant GH to scap, I strip unload UT and levat scap Type of Tape Kinesio Tape Skin Inspection WNL Comments Pt ed to remove tape in 3-5 days or immediately if skin irritation occurs insert to origin for UT and levat scap PT-OP-R Modalities Start: 08/04/24 13:50 Freq: Status: Active Protocol: Document 10/18/24 08:11 AB (Rec: 10/18/24 10:23 AB [id number]) Hot Pack/Cold Pack Treatment L shoulder Patient Position Hooklying Comments 10 min PT-OP-T Assessment and Plan Start: 08/04/24 13:50 Freq: Status: Active Protocol: Document 10/18/24 08:11 AB (Rec: 10/18/24 10:23 AB [id number]) Physical Therapy Assessment Goals Three Impairment Pt experienced limited left shoulder abduction (73? AROM) Short Term Goal (STG) Pt to improve pain-free left AROM to 120? abduction in order to improve her ability to perform associated work activities without pain. STG Duration Met 10/04/24 Minute Clerk Goal (LTG) Pt to improve pain-free left AROM to 160? abduction in order to improve her ability to perform associated work activities without pain. LTG Duration 12/02/24 Two Impairment Pt unable to sweep/mop her house without assistance due to shoulder pain Intermediate Goal (LTG) Pt to report ability to complete sweeping/mopping 50% of her house without increased pain in order to demonstrate increased functional mobility. LTG Duration 12/02/24 One Impairment Pt does not have an appropriate home exercise program Short Term Goal (STG) Pt to be independent and compliant with an appropriate HEP STG Duration 11/04/23 Assessment Summary Assessment AROM left shoulder flexion 171 deg end of session. Physical Therapy Plan Frequency and Duration Frequency of Treatment 2x/Week Plan of Care Start Date 10/04/24 Plan of Care End Date 12/02/24 Next Visit Focus/Plan Next Note Type Treatment Note Next Visit Plan STM, joint mobilizations, strengthening
--- NOTE | 2024-10-20 16:16 | PT.OTN ---
Current Diagnoses Pain in left shoulder (10/20/24) Stiffness of left shoulder, not elsewhere classified (10/20/24) Other specified joint disorders, unspecified shoulder (10/20/24) Unspecified injury of left shoulder and upper arm, initial encounter (10/20/24) Unspecified injury of left shoulder and upper arm, subsequent encounter (10/20/24) Physical Therapy Treatment Note PT-OP-A Visit Information Start: 08/04/24 13:50 Freq: Status: Active Protocol: Document 10/20/24 12:33 AB (Rec: 10/20/24 16:16 AB [id number]) Out-Patient Physical Therapy Visit Information Visit Information Visit Type Treatment Note Visit Start Time 13:50 Visit Stop Time 13:42 Visit Number 16 Number of COOK DINNER Visits 2 Evaluation Information Evaluation Date 08/04/24 PT-OP-B Current Condition Start: 08/04/24 13:50 Freq: Status: Active Protocol: Document 08/04/24 09:45 DCW (Rec: 08/04/24 14:09 DCW [id number]) Current Condition History of Current Condition Onset Date 06/06/24 Current Complaints Left shoulder pain History of Current Condition Pt is a 29 year old female presenting to skilled therapy with a two month history of left shoulder pain. Pt slipped on wet grass while chasing her young son, landing on her left shoulder. Was seen on the day of injury at the walk-in clinic and provided with an x- ray, which was unremarkable. Pain continued, specifically with abduction, and after a follow-up, pt was able to get in for an MRI, which showed mild tendonitis in her supraspinatus and biceps tendons. Pt is still experiencing significant pain two months later. 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 Additionally has difficulty with housework, like sweeping/ mopping. Had been wearing a sling during the day up until last week for comfort. Still taking 600 mg of Gabapentin 3x /daily due to pain. Reports it feels like someone is constantly pulling down on my arm, like it's really heavy and just hangs there. Prior Treatments and Tests Shoulder x-ray: IMPRESSION: No acute bony abnormality. per Ruy Oliva M.D. on Shoulder MRI: IMPRESSION: 1. Mild tendinosis of the supraspinatus. 2. Mild tendinosis of the intra- articular biceps tendon. Yee Navarro M.D. on 06/29/2024 PT-OP-C Subjective Start: 08/04/24 13:50 Freq: Status: Active Protocol: Document 10/20/24 12:33 AB (Rec: 10/20/24 16:16 AB [id number]) OP-PT Subjective Patient Comments Patient Comments Patient reports she has recovered from her fall fully. Justina reports L shoulder pain 3-4/10 tingling to elbow start of session. Patient reports today she has only taken one Gabapentin. AROM 152 deg AROM left shoulder flexion. PT-OP-F Manual Assessment Start: 08/04/24 13:50 Freq: Status: Active Protocol: Document 10/04/24 12:18 DCW (Rec: 10/04/24 12:40 DCW [id number]) Manual Assessments Joint Mobility Assessment Joint Mobility Assessment Moderate pain with all palpation of the clavicle, specifically at the a/c and s/ c joints, no step-deformity noted PT-OP-K Range of Motion Start: 08/04/24 13:50 Freq: Status: Active Protocol: Document 10/04/24 12:18 DCW (Rec: 10/04/24 12:40 DCW [id number]) Shoulder Goniometric Range of Motion Shoulder Right Active Shoulder ROM WFL Yes Testing Position Sitting Flexion 180 Abduction 180 External Rotation at 0 degrees Abduction 78 Internal Rotation Behind Back (text) T8 Left Active Shoulder ROM WFL No Testing Position Sitting Flexion 164 Abduction 141 External Rotation at 0 degrees Abduction 75 Internal Rotation Behind Back (text) T8 PT-OP-L Special Tests Start: 08/04/24 13:50 Freq: Status: Active Protocol: Document 10/04/24 12:18 DCW (Rec: 10/04/24 12:40 DCW [id number]) Special Tests Shoulder Special Tests Yergason's Biceps Test Results Negative Speed's Biceps Test Results Negative Passive ER Rotator Cuff Test Results Negative Painful Arc Test Results Positive left Lift-Off Rotator Cuff Test Results Negative Fagan Kamar Impingement Test Results Negative Drop Arm Rotator Cuff Test Results Negative Clunk Test Test Results Negative Belly Press Test Results Negative Apprehension Test Test Results Negative AC Joint Compression Test Results Positive left - severe pain PT-OP-M Strength Start: 08/04/24 13:50 Freq: Status: Active Protocol: Document 10/04/24 12:18 DCW (Rec: 10/04/24 12:40 DCW [id number]) Shoulder Strength Shoulder Manual Muscle Testing Right Flexion 5 Normal Abduction (C5) 5 Normal External Rotation 5 Normal Internal Rotation 5 Normal Horizontal Abduction 5 Normal Left Flexion 4 Good Abduction (C5) 3- Fair- External Rotation 5 Normal Internal Rotation 5 Normal Horizontal Abduction 5 Normal PT-OP-Q Treatments Start: 08/04/24 13:50 Freq: Status: Active Protocol: Document 10/20/24 12:33 AB (Rec: 10/20/24 16:16 AB [id number]) Therapeutic Exercises Supine Exercises Serratus Punch Supine Exercise Name Serratus Punch Side left Resistance 3# Reps/Minutes X15 Mini band Supine Exercise Name shoulder ER with band with AROM flexion Side left Resistance level one band Equipment Used HEP Reps/Minutes X8 Comments monitored for pain Flexion Supine Exercise Name AROM shoulder flexion Side bilateral Resistance 1 lb Reps/Minutes X10 Comments verbal cues for UE position and 10 sec hold Standing Exercises cheerleaders Side bilateral Resistance level one band light blue Reps/Minutes 5 X Comments verbal and visual cues Overhead Press Standing Exercise Name Overhead Press /c PVC Side bilateral Equipment Used 5# Reps/Minutes X15 Comments back to wall for posture, VC to perform slowly, monitored for pain push up plus Side bilateral Reps/Minutes X1 Comments limted by right shoulder pain Body Blade Standing Exercise Name Body Blade - Flexion, Abduction Side left Resistance Yellow Reps/Minutes X 5 each direction Comments monitored for pain Rows Standing Exercise Name 1. Row 2. high row (HEP) Side bilateral Resistance Lv 3 Reps/Minutes X15 each Comments verbal and visual cues for high row, and how to secure band at home Manual Therapy Treatment Consent Patient gave verbal consent for manual Yes treatment Soft Tissue Mobilization Upper Trap Body Location L Upper Trap, levat scap, scalenes, Pec, Mobilization Type Cross-Friction,Myofascial Release,Rolling,Sustained Pressure Intensity/Depth Moderate Body Position Sidelying Comments and hooklying Joint Mobilizations scapular mobilization Joint left Direction into depression and adduction Body Position Sidelying Reps/Duration X10 each PT-OP-R Modalities Start: 08/04/24 13:50 Freq: Status: Active Protocol: Document 10/18/24 08:11 AB (Rec: 10/18/24 10:23 AB [id number]) Hot Pack/Cold Pack Treatment L shoulder Patient Position Hooklying Comments 10 min PT-OP-T Assessment and Plan Start: 08/04/24 13:50 Freq: Status: Active Protocol: Document 10/20/24 12:33 AB (Rec: 10/20/24 16:16 AB [id number]) Physical Therapy Assessment Goals Three Impairment Pt experienced limited left shoulder abduction (73? AROM) Short Term Goal (STG) Pt to improve pain-free left AROM to 120? abduction in order to improve her ability to perform associated work activities without pain. STG Duration Met 10/04/24 Product Handler Goal (LTG) Pt to improve pain-free left AROM to 160? abduction in order to improve her ability to perform associated work activities without pain. LTG Duration 12/02/24 Two Impairment Pt unable to sweep/mop her house without assistance due to shoulder pain Product Handler Goal (LTG) Pt to report ability to complete sweeping/mopping 50% of her house without increased pain in order to demonstrate increased functional mobility. LTG Duration 12/02/24 One Impairment Pt does not have an appropriate home exercise program Short Term Goal (STG) Pt to be independent and compliant with an appropriate HEP STG Duration 11/04/23 Assessment Summary Assessment AROM left shoulder flexion 159 deg end of session. Patient rates pain Physical Therapy Plan Frequency and Duration Frequency of Treatment 2x/Week Plan of Care Start Date 10/04/24 Plan of Care End Date 12/02/24 Next Visit Focus/Plan Next Note Type Treatment Note Next Visit Plan STM, joint mobilizations, strengthening
--- NOTE | 2024-10-27 14:02 | PT.OTN ---
Current Diagnoses Pain in left shoulder (10/27/24) Stiffness of left shoulder, not elsewhere classified (10/27/24) Other specified joint disorders, unspecified shoulder (10/27/24) Unspecified injury of left shoulder and upper arm, initial encounter (10/27/24) Unspecified injury of left shoulder and upper arm, subsequent encounter (10/27/24) Physical Therapy Treatment Note PT-OP-A Visit Information Start: 08/04/24 13:50 Freq: Status: Active Protocol: Document 10/27/24 12:59 AB (Rec: 10/27/24 14:02 AB [id number]) Out-Patient Physical Therapy Visit Information Visit Information Visit Type Treatment Note Visit Start Time 13:03 Visit Stop Time 13:54 Visit Number 17 Number of SALES AND SERVICE OFFICER Visits 3 Evaluation Information Evaluation Date 08/04/24 PT-OP-B Current Condition Start: 08/04/24 13:50 Freq: Status: Active Protocol: Document 08/04/24 09:45 DCW (Rec: 08/04/24 14:09 DCW [id number]) Current Condition History of Current Condition Onset Date 06/06/24 Current Complaints Left shoulder pain History of Current Condition Pt is a 29 year old female presenting to skilled therapy with a two month history of left shoulder pain. Pt slipped on wet grass while chasing her young son, landing on her left shoulder. Was seen on the day of injury at the walk-in clinic and provided with an x- ray, which was unremarkable. Pain continued, specifically with abduction, and after a follow-up, pt was able to get in for an MRI, which showed mild tendonitis in her supraspinatus and biceps tendons. Pt is still experiencing significant pain two months later. 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 Additionally has difficulty with housework, like sweeping/ mopping. Had been wearing a sling during the day up until last week for comfort. Still taking 600 mg of Gabapentin 3x /daily due to pain. Reports it feels like someone is constantly pulling down on my arm, like it's really heavy and just hangs there. Prior Treatments and Tests Shoulder x-ray: IMPRESSION: No acute bony abnormality. per Ruy Oliva M.D. on Shoulder MRI: IMPRESSION: 1. Mild tendinosis of the supraspinatus. 2. Mild tendinosis of the intra- articular biceps tendon. Yee Navarro M.D. on 06/29/2024 PT-OP-C Subjective Start: 08/04/24 13:50 Freq: Status: Active Protocol: Document 10/27/24 12:59 AB (Rec: 10/27/24 14:02 AB [id number]) OP-PT Subjective Patient Comments Patient Comments Patient reports she has been taking more Gabapentin and Ibueprofin attributes to working 2 locations and stool broke at work. Patient rates left shoulder 0/10 start of session, attributes to pain meds and slow day at work. AROM 158 deg AROM left shoulder flexion start of session. PT-OP-F Manual Assessment Start: 08/04/24 13:50 Freq: Status: Active Protocol: Document 10/04/24 12:18 DCW (Rec: 10/04/24 12:40 DCW [id number]) Manual Assessments Joint Mobility Assessment Joint Mobility Assessment Moderate pain with all palpation of the clavicle, specifically at the a/c and s/ c joints, no step-deformity noted PT-OP-K Range of Motion Start: 08/04/24 13:50 Freq: Status: Active Protocol: Document 10/04/24 12:18 DCW (Rec: 10/04/24 12:40 DCW [id number]) Shoulder Goniometric Range of Motion Shoulder Right Active Shoulder ROM WFL Yes Testing Position Sitting Flexion 180 Abduction 180 External Rotation at 0 degrees Abduction 78 Internal Rotation Behind Back (text) T8 Left Active Shoulder ROM WFL No Testing Position Sitting Flexion 164 Abduction 141 External Rotation at 0 degrees Abduction 75 Internal Rotation Behind Back (text) T8 PT-OP-L Special Tests Start: 08/04/24 13:50 Freq: Status: Active Protocol: Document 10/04/24 12:18 DCW (Rec: 10/04/24 12:40 DCW [id number]) Special Tests Shoulder Special Tests Yergason's Biceps Test Results Negative Speed's Biceps Test Results Negative Passive ER Rotator Cuff Test Results Negative Painful Arc Test Results Positive left Lift-Off Rotator Cuff Test Results Negative Fagan Kamar Impingement Test Results Negative Drop Arm Rotator Cuff Test Results Negative Clunk Test Test Results Negative Belly Press Test Results Negative Apprehension Test Test Results Negative AC Joint Compression Test Results Positive left - severe pain PT-OP-M Strength Start: 08/04/24 13:50 Freq: Status: Active Protocol: Document 10/04/24 12:18 DCW (Rec: 10/04/24 12:40 DCW [id number]) Shoulder Strength Shoulder Manual Muscle Testing Right Flexion 5 Normal Abduction (C5) 5 Normal External Rotation 5 Normal Internal Rotation 5 Normal Horizontal Abduction 5 Normal Left Flexion 4 Good Abduction (C5) 3- Fair- External Rotation 5 Normal Internal Rotation 5 Normal Horizontal Abduction 5 Normal PT-OP-Q Treatments Start: 08/04/24 13:50 Freq: Status: Active Protocol: Document 10/27/24 12:59 AB (Rec: 10/27/24 14:02 AB [id number]) Therapeutic Exercises Supine Exercises chest firer portable boiler, pec stretch Supine Exercise Name 1/2 foam roller Side bilateral Equipment Used Verbal and tactile cues for breathing prior to initiation of stretch Reps/Minutes 2 min chest firer portable boiler X10 alt UE flexion Comments vc for breathing from diaphragm, VC for UE's to remain on floor for abd Sidelying Exercises open book Side left Reps/Minutes X5 for 5 breaths each side Comments Verbal and tactile cues Sitting Exercises scalene stretch Side left Reps/Minutes 60 sec X 2 Comments verbal and visual cues Standing Exercises rhyhmic oscillation Standing Exercise Name statue of liberty position Side left Resistance yellow therabar Reps/Minutes one min cheerleaders Side bilateral Resistance level one band light blue Reps/Minutes 5 X Comments verbal and visual cues push up plus Standing Exercise Name codie postion Side bilateral Reps/Minutes X10 Comments verbal cues Wall slides Standing Exercise Name wall slide mini band ER with flexion Side left Resistance level one band Equipment Used with lift off and stepping back lowering without use of wall Manual Therapy Treatment Soft Tissue Mobilization post cuff, Rhomb Body Location L Mobilization Type Cross-Friction,Rolling Intensity/Depth Moderate Body Position Sidelying Upper Trap Body Location L Upper Trap, levat scap, scalenes, Pec, Mobilization Type Cross-Friction,Myofascial Release,Rolling,Sustained Pressure Intensity/Depth Moderate Body Position Sitting Comments and hooklying Joint Mobilizations scapular mobilization Joint left Direction into depression and adduction Body Position Sidelying Reps/Duration X10 each GH Joint L GH Direction Inf and AP Grade III Body Position Supine Reps/Duration X10 each X 3 PT-OP-R Modalities Start: 08/04/24 13:50 Freq: Status: Active Protocol: Document 10/27/24 12:59 AB (Rec: 10/27/24 14:02 AB [id number]) Hot Pack/Cold Pack Treatment L shoulder Patient Position Hooklying Comments 10 min PT-OP-T Assessment and Plan Start: 08/04/24 13:50 Freq: Status: Active Protocol: Document 10/27/24 12:59 AB (Rec: 10/27/24 14:02 AB [id number]) Physical Therapy Assessment Goals Three Impairment Pt experienced limited left shoulder abduction (73? AROM) Short Term Goal (STG) Pt to improve pain-free left AROM to 120? abduction in order to improve her ability to perform associated work activities without pain. STG Duration Met 10/04/24 Detention Goal (LTG) Pt to improve pain-free left AROM to 160? abduction in order to improve her ability to perform associated work activities without pain. LTG Duration 12/02/24 Two Impairment Pt unable to sweep/mop her house without assistance due to shoulder pain [employer] Systems Administrator Goal (LTG) Pt to report ability to complete sweeping/mopping 50% of her house without increased pain in order to demonstrate increased functional mobility. LTG Duration 12/02/24 One Impairment Pt does not have an appropriate home exercise program Short Term Goal (STG) Pt to be independent and compliant with an appropriate HEP STG Duration 11/04/23 Assessment Summary Assessment AROM L shoulder flexion 160 deg end of session with patient rating discomfort 3/10 L ant shoulder end of session . Physical Therapy Plan Frequency and Duration Frequency of Treatment 2x/Week Plan of Care Start Date 10/04/24 Plan of Care End Date 12/02/24 Next Visit Focus/Plan Next Note Type Treatment Note Next Visit Plan STM, joint mobilizations, strengthening
--- NOTE | 2024-10-30 10:36 | PT.OTN ---
Current Diagnoses Pain in left shoulder (10/30/24) Stiffness of left shoulder, not elsewhere classified (10/30/24) Other specified joint disorders, unspecified shoulder (10/30/24) Unspecified injury of left shoulder and upper arm, initial encounter (10/30/24) Unspecified injury of left shoulder and upper arm, subsequent encounter (10/30/24) Physical Therapy Treatment Note PT-OP-A Visit Information Start: 08/04/24 13:50 Freq: Status: Active Protocol: Document 10/30/24 08:08 AB (Rec: 10/30/24 09:47 AB [id number]) Out-Patient Physical Therapy Visit Information Visit Information Visit Type Treatment Note Visit Start Time 09:03 Visit Stop Time 09:55 Visit Number 18 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 Pt slipped on wet grass while chasing her young son, landing on her left shoulder. Was seen on the day of injury at the walk-in clinic and provided with an x- ray, which was unremarkable. Pain continued, specifically with abduction, and after a follow-up, pt was able to get in for an MRI, which showed mild tendonitis in her supraspinatus and biceps tendons. Pt is still experiencing significant pain two months later. 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 Additionally has difficulty with housework, like sweeping/ mopping. Had been wearing a sling during the day up until last week for comfort. Still taking 600 mg of Gabapentin 3x /daily due to pain. Reports it feels like someone is constantly pulling down on my arm, like it's really heavy and just hangs there. Prior Treatments and Tests Shoulder x-ray: IMPRESSION: No acute bony abnormality. per Ruy Oliva M.D. on Shoulder MRI: IMPRESSION: 1. Mild tendinosis of the supraspinatus. 2. Mild tendinosis of the intra- articular biceps tendon. Yee Navarro M.D. on 06/29/2024 PT-OP-C Subjective Start: 08/04/24 13:50 Freq: Status: Active Protocol: Document 10/30/24 08:08 AB (Rec: 10/30/24 09:47 AB [id number]) OP-PT Subjective Patient Comments Patient Comments Post left shoulder -11/20 toothache time pain, patient reports she is better this morning attributes to not working over weekend. AROM L shoulder flexion 161 deg start of session, PT-OP-F Manual Assessment Start: 08/04/24 13:50 Freq: Status: Active Protocol: Document 10/04/24 12:18 DCW (Rec: 10/04/24 12:40 DCW [id number]) Manual Assessments Joint Mobility Assessment Joint Mobility Assessment Moderate pain with all palpation of the clavicle, specifically at the a/c and s/ c joints, no step-deformity noted PT-OP-K Range of Motion Start: 08/04/24 13:50 Freq: Status: Active Protocol: Document 10/04/24 12:18 DCW (Rec: 10/04/24 12:40 DCW [id number]) Shoulder Goniometric Range of Motion Shoulder Right Active Shoulder ROM WFL Yes Testing Position Sitting Flexion 180 Abduction 180 External Rotation at 0 degrees Abduction 78 Internal Rotation Behind Back (text) T8 Left Active Shoulder ROM WFL No Testing Position Sitting Flexion 164 Abduction 141 External Rotation at 0 degrees Abduction 75 Internal Rotation Behind Back (text) T8 PT-OP-L Special Tests Start: 08/04/24 13:50 Freq: Status: Active Protocol: Document 10/04/24 12:18 DCW (Rec: 10/04/24 12:40 DCW [id number]) Special Tests Shoulder Special Tests Yergason's Biceps Test Results Negative Speed's Biceps Test Results Negative Passive ER Rotator Cuff Test Results Negative Painful Arc Test Results Positive left Lift-Off Rotator Cuff Test Results Negative Fagan Kamar Impingement Test Results Negative Drop Arm Rotator Cuff Test Results Negative Clunk Test Test Results Negative Belly Press Test Results Negative Apprehension Test Test Results Negative AC Joint Compression Test Results Positive left - severe pain PT-OP-M Strength Start: 08/04/24 13:50 Freq: Status: Active Protocol: Document 10/04/24 12:18 DCW (Rec: 10/04/24 12:40 DCW [id number]) Shoulder Strength Shoulder Manual Muscle Testing Right Flexion 5 Normal Abduction (C5) 5 Normal External Rotation 5 Normal Internal Rotation 5 Normal Horizontal Abduction 5 Normal Left Flexion 4 Good Abduction (C5) 3- Fair- External Rotation 5 Normal Internal Rotation 5 Normal Horizontal Abduction 5 Normal PT-OP-Q Treatments Start: 08/04/24 13:50 Freq: Status: Active Protocol: Document 10/30/24 08:08 AB (Rec: 10/30/24 09:47 AB [id number]) Therapeutic Exercises Supine Exercises Mini band Supine Exercise Name shoulder ER with band with AROM flexion Side left Resistance level one band Equipment Used HEP STANDING BACK TO WALL THIS SESSOIN Reps/Minutes X10 Comments monitored for pain chest plastics worker, pec stretch Supine Exercise Name 1/2 foam roller Side bilateral Equipment Used Verbal and tactile cues for breathing prior to initiation of stretch Reps/Minutes 2 min chest plastics worker X10 alt UE flexion Comments vc for breathing from diaphragm, VC for UE's to remain on floor for abd Sidelying Exercises open book Side left Reps/Minutes X5 for 5 breaths each side Comments Verbal and tactile cues Standing Exercises rhyhmic oscillation Standing Exercise Name statue of liberty position Side left Resistance yellow therabar Reps/Minutes one min push up plus Standing Exercise Name codie postion Side bilateral Reps/Minutes X10 Comments verbal cues Manual Therapy Treatment Consent Patient gave verbal consent for manual Yes treatment Soft Tissue Mobilization post cuff, Rhomb Body Location L Mobilization Type Cross-Friction,Rolling Intensity/Depth Moderate Body Position Sidelying Upper Trap Body Location L Upper Trap, levat scap, scalenes, Pec, Mobilization Type Cross-Friction,Myofascial Release,Rolling,Sustained Pressure Intensity/Depth Moderate Body Position Sitting Comments and hooklying Joint Mobilizations 1st rib Joint L Direction inf Grade II Body Position Hooklying Reps/Duration X10 X 2 scapular mobilization Joint left Direction into depression and adduction Body Position Sidelying Reps/Duration X10 each A/C Joint L A/C Direction Inf Grade II Body Position Supine GH Joint L GH Direction Inf and AP Grade III Body Position Supine Reps/Duration X10 each X 3 Taping kinesio tape Body Location left shoulder Treatment Focus Pain and posture I strip ant GH to scap, I strip unload UT and levat scap Type of Tape Kinesio Tape Skin Inspection WNL Comments Pt ed to remove tape in 3-5 days or immediately if skin irritation occurs insert to origin for UT and levat scap PT-OP-R Modalities Start: 08/04/24 13:50 Freq: Status: Active Protocol: Document 10/30/24 08:08 AB (Rec: 10/30/24 09:47 AB [id number]) Hot Pack/Cold Pack Treatment L shoulder Patient Position Hooklying Comments 10 min PT-OP-T Assessment and Plan Start: 08/04/24 13:50 Freq: Status: Active Protocol: Document 10/30/24 08:08 AB (Rec: 10/30/24 09:47 AB [id number]) Physical Therapy Assessment Goals Three Impairment Pt experienced limited left shoulder abduction (73? AROM) Short Term Goal (STG) Pt to improve pain-free left AROM to 120? abduction in order to improve her ability to perform associated work activities without pain. STG Duration Met 10/04/24 Fpc Goal (LTG) Pt to improve pain-free left AROM to 160? abduction in order to improve her ability to perform associated work activities without pain. LTG Duration 12/02/24 Two Impairment Pt unable to sweep/mop her house without assistance due to shoulder pain Manager Investment Goal (LTG) Pt to report ability to complete sweeping/mopping 50% of her house without increased pain in order to demonstrate increased functional mobility. LTG Duration 12/02/24 One Impairment Pt does not have an appropriate home exercise program Short Term Goal (STG) Pt to be independent and compliant with an appropriate HEP STG Duration 11/04/23 Assessment Summary Assessment AROM L shoulder flexion 171 deg end of session with Justina rating pain 0/10 end of session. Physical Therapy Plan Frequency and Duration Frequency of Treatment 2x/Week Plan of Care Start Date 10/04/24 Plan of Care End Date 12/02/24 Next Visit Focus/Plan Next Note Type Treatment Note Next Visit Plan STM, joint mobilizations, strengthening
--- NOTE | 2025-07-03 16:08 | PT.OPDS ---
Current Diagnoses Pain in left shoulder (10/30/24) Stiffness of left shoulder, not elsewhere classified (10/30/24) Other specified joint disorders, unspecified shoulder (10/30/24) Unspecified injury of left shoulder and upper arm, initial encounter (10/30/24) Unspecified injury of left shoulder and upper arm, subsequent encounter (10/30/24) Visit Care Team Role Provider Type Haley Chand DO Primary Care Provider Physician Specialty: Family Practice Address: [address] [place] [address], [address], [address] Email: [email or web address] Ivonne Anderson MD Family Provider Non-Staff Specialty: Medical Address: [address] [place] [address], [id number] Email: Brandy Vang PA-C Attending Provider Advanced Summer Analyst Referring Provider Specialty: Medical Wound Care Address: [address] [place] [address], [id number] Email: [email or web address] Visit Number Visit Number 18 Discharge Summary PT-OP-T Assessment and Plan Start: 08/04/24 13:50 Freq: Status: Active Protocol: Document 07/03/25 16:07 DCW (Rec: 07/03/25 16:08 DCW [id number]) Physical Therapy Assessment Assessment Summary Assessment Pt did not call to schedule further follow-up appointments. Pt has currently not been seen in more than eight months, will be discharged from skilled therapy at this time. Physical Therapy Plan Discharge Physical Therapy Discharge Reasons No Longer Attending PT
== END 2025-07-04 10:15 | disposition home or self-care (01) ==
LOC: PHYS 09:00
PROVIDERS: Family Provider Family Medicine; PCP Family Medicine; Referring Provider Physician Assistant; Visit Provider Physician Assistant
DX: S49.92XD Unspecified injury of left shoulder and upper arm, subsequent encounter (principal); M25.819 Other specified joint disorders, unspecified shoulder; M25.612 Stiffness of left shoulder, not elsewhere classified; M25.512 Pain in left shoulder; S49.92XA Unspecified injury of left shoulder and upper arm, initial encounter
CPT/HCPCS: 97110; 97140; 97162

== ENCOUNTER → 2024-11-08 16:49 | Outpatient (CLI) | payer OTHER, SELFPAY ==
[2024-11-08 17:12] LABS: Add Manual Diff / Slide Review NO; Basophils Absolute Auto 0 /uL (0-100); Basophils Percent Auto 0.5 % (0-2); Eosinophils Absolute Auto 100 /uL (0-450); Eosinophils Percent Auto 0.8 % (2-4); Hematocrit 39.1 % (36-46); Hemoglobin 13.3 g/dL (12.0-16.0); Lymphocytes Absolute Auto 2600 /uL (1100-4500); Lymphocytes Percent Auto 29.4 % (25-40); Mean Corpuscular HGB Conc 33.9 % (30-36); Mean Corpuscular Hemoglobin 29.3 PG (26-34); Mean Corpuscular Volume 86.5 fL (80-100); Monocytes Absolute Auto 600 /uL (0-900); Monocytes Percent Auto 6.3 % (3-14); Neutrophils Absolute Auto 5700 /uL (1500-7000); Platelet Count 250 X10^3/uL (150-400); Red Blood Cell Count 4.52 X10^6/uL (4.0-5.2)
[2024-11-08 18:48] LABS: Urine Chlamydia NOT DETECTED; Urine N gonorrhoeae NOT DETECTED
== END ==
LOC: LAB 16:50
PROVIDERS: Family Provider Family Medicine; PCP Family Medicine; Referring Provider Physician Assistant; Visit Provider Physician Assistant
DX: N93.9 Abnormal uterine and vaginal bleeding, unspecified (principal)
CPT/HCPCS: 36415; 85025; 87491; 87591

== ENCOUNTER → 2024-11-15 16:38 | Outpatient (CLI) | payer OTHER, SELFPAY ==
--- NOTE | 2024-11-15 16:39 | DI.US.S_ITS ---
PROCEDURE: US PELVIC COMPLETE INDICATIONS: menstruating x 12 days, hx endometriosis TECHNIQUE: Real-time scanning was performed of the pelvic organs, with image documentation. Additional endovaginal scanning was necessary due to incomplete visualization of the adnexal and endometrial structures by transabdominal scanning. COMPARISON: [facility], , US PELVIC COMPLETE, 10/19/2022, 21:24. FINDINGS: Uterus: Uterus is anteverted and normal in size at 7.2 x 5.7 x 4.8 cm. The myometrium is heterogeneous. The endometrium measures 10.4 mm combined thickness. Movement within the endometrium, likely representing blood product. Ovaries: The right ovary measures 4.8 x 3.8 x 3.8 cm, with a calculated ovarian volume of 37 cc. Simple right ovarian cyst measuring 3.6 x 3.1 x 2.8 centimeters. Arterial venous flow is seen to the right ovary. The left ovary is not seen. Other: No pathologic free abdominal or pelvic fluid. IMPRESSION: Endometrium is normal in thickness for premenopausal female measuring 10 millimeters. Movement is seen within the endometrium, likely representing blood product. Right ovarian simple cyst measuring 3.6 centimeters. The left ovary is not seen. We strive to produce accurate, complete, and clear reports of imaging services. To assist us in improving patient care, this report was composed using standard report templates and voice recognition software. Therefore, it may contain abnormal punctuation, insertions and/or omissions. Occasional wrong-word or sound-alike substitutions may occur. Though we review the report and make efforts to correct it, we do recommend that the report be read carefully in proper context to recognize any text inaccuracies. Dictated by: Vishnu Jean M.D. on 11/16/2024 at 8:23 Approved by: Vishnu Jean M.D. on 11/16/2024 at 8:25
== END ==
PROVIDERS: Family Provider Family Medicine; PCP Family Medicine; Referring Provider Physician Assistant; Visit Provider Physician Assistant
DX: N93.9 Abnormal uterine and vaginal bleeding, unspecified (principal); N83.291 Other ovarian cyst, right side
CPT/HCPCS: 76830; 76856; 93976

== ENCOUNTER → 2024-11-16 10:34 | Outpatient (CLI) | payer OTHER, SELFPAY ==
[2024-11-16 10:51] LABS: Add Manual Diff / Slide Review NO; Basophils Absolute Auto 0 /uL (0-100); Basophils Percent Auto 0.6 % (0-2); Eosinophils Absolute Auto 100 /uL (0-450); Eosinophils Percent Auto 1.3 % (2-4); Hematocrit 39.8 % (36-46); Hemoglobin 13.7 g/dL (12.0-16.0); Lymphocytes Absolute Auto 2500 /uL (1100-4500); Lymphocytes Percent Auto 34.3 % (25-40); Mean Corpuscular HGB Conc 34.4 % (30-36); Mean Corpuscular Hemoglobin 29.4 PG (26-34); Mean Corpuscular Volume 85.6 fL (80-100); Monocytes Absolute Auto 400 /uL (0-900); Monocytes Percent Auto 4.9 % (3-14); Neutrophils Absolute Auto 4300 /uL (1500-7000); Neutrophils Percent Auto 58.9 % (50-75); Platelet Count 213 X10^3/uL (150-400); Red Blood Cell Count 4.65 X10^6/uL (4.0-5.2); Red Cell Distribution Width 14.1 % (11.6-14.8); White Blood Cell Count 7.3 X10^3/uL (4.5-11.0)
[2024-11-16 11:49] LABS: Prolactin 7.7 ng/mL (3.0-18.6)
[2024-11-16 11:57] LABS: TSH w/ Reflex to FT4 1.43 uIU/mL (0.47-4.68)
== END ==
PROVIDERS: Family Provider Family Medicine; PCP Family Medicine; Referring Provider Physician Assistant; Visit Provider Physician Assistant
DX: N93.9 Abnormal uterine and vaginal bleeding, unspecified (principal)
CPT/HCPCS: 36415; 84146; 84443; 85025

== ENCOUNTER 2025-01-25 09:01 | Day surgery (SDC) | payer OTHER, SELFPAY ==
[2025-01-17 14:47] VITALS: BMI 39.1
[2025-01-25] VITALS (11 sets, daily range): BP systolic 100–129; BP diastolic 68–84; PULSE 77–112; RESP 16–20; TEMP 35.8–37; O2SAT 96–100; BMI 38.4; BMI 39.1
--- NOTE | 2025-01-25 | PATH_ITS ---
[facility] Accession Number: [id number] No. of containers..01 Tissue . 01 Material submitted: . uterus - UTERUS, CERVIX . 01 Diagnosis: UTERUS AND CERVIX, HYSTERECTOMY: Cervix with focal chronic cervicitis. Uterus with secretory endometrium and adenomyosis. Negative for malignancy. [facility] 01/30/2025 1536 Local . 01 Electronically signed: . Lynne Alfaro DO, Pathologist NPI- [id number] . 01 Gross description: . Received in formalin with two identifiers and uterus cervix, is an intact uterus (140 grams, 9.7 cm superior to inferior, 6.0 cm medial to lateral, and 5.0 cm anterior to posterior) with attached cervix, (3.9 x 3.8 cm) and no additional adnexa. . The ectocervix is hernandez and finely granular with a slit-like os, 1.2 cm in diameter. The anterior paracervical margin is inked blue and the posterior paracervical margin is inked black. The serosa is hernandez and smooth with no hemorrhage or adhesion identified. The endocervical canal has hernandez herringbone mucosa and measures 3.1 cm in length. The endometrial cavity is 2.7 cm from cornu to cornu and 4.8 cm in length with pink-hernandez, lush endometrium that averages 0.3 cm thick. The myometrium is hernandez and trabecular measuring up to 2.3 cm in maximum thickness with no nodules or lesions identified. . Self Propelled Hot Mix Roller Operator sections are submitted as follows: A1: Anterior cervix. A2: Posterior cervix. A3: Anterior full-thickness section. A4: Posterior full-thickness section. A5: Serosa. ([id number]) /V 01/26/2025 1522 Local . 01 Pathologist provided ICD-10: N93.9 . 01 CPT . 873772 Specimen Comment: A courtesy copy of this report has been sent to [phone] Performed at: [address] [address], [place], [place] [id number] MD Miles Elam MD Phone: [phone]
[2025-01-25] MEDS: SCOPOLAMINE 1 PATCH TOP (09:14)
[2025-01-25] MEDS: ACETAMINOPHEN 325 MG TABLET 975 MG PO (09:14)
[2025-01-25] MEDS: LACTATED RINGERS 1,000 ML 42 ML IV ×2 (09:14→12:19)
--- NOTE | 2025-01-25 10:49 | PM.PREOP ---
Pre-operative Note COVID-19 COVID-19 status: Not tested Interval Note History & Physical reviewed/Exam performed by Physician: Yes Changes to H&P: No
[2025-01-25] MEDS: CEFAZOLIN 2 GM/100 ML PREMIX 100 ML IV (11:08)
--- NOTE | 2025-01-25 11:36 | SUR.OPER ---
Lithotomy on padded OR bed. Orwin Pad Positioner under torso. Head on pillow, arms padded and tucked at sides. Shoulders secured. Legs secured in padded yellow fins stirrups.
[2025-01-25] MEDS: ROPIVACAINE 0.2% PF 2 MG/ML 10ML AMP 20 ML INJ (11:51)
[2025-01-25] MEDS: BUPIVACAINE 0.5% W/ EPI (PF) 30 ML VIAL INJ (11:51)
[2025-01-25] MEDS: SODIUM CHLORIDE 0.9% IV (12:51)
[2025-01-25] MEDS: TRANEXAMIC ACID IV (12:51)
--- NOTE | 2025-01-25 13:29 | PM.GYNOP.1 ---
Operative Date/Time/Diagnoses Date of procedure: 01/25/25 Time of procedure: 10:45 Pre-op diagnosis: Abnormal uterine bleeding Chronic pelvic pain Dysmenorrhea Adenomyosis (suspected diagnosis) Post-op diagnosis: same Procedure & Clinicians Procedure: Procedures Operation Date: 01/25/25 10:15 Actual Procedure Side Surgeon p Laparoscopic Total Hysterectomy Not Applicable Pj Campos MD Indications: Justina is a 29-year-old , LMP 12/24/2024 through 01/06/2025, who presents with a 2-3 year history of progressively heavy menses and now extremely long menses. Patient experienced menarche at age 11 and has had a primary section with her 1st followed by 2 successful . Her periods have generally been regular since menarche but over the last 2 or 3 years the cycles have become significantly heavier with her typical menses lasting 8 days with 3 days of flooding. During those 3 days, she experiences passage of large clots on an nearly continuous basis, severe menstrual pain, and accidents/overflows. There was some days where she can barely get out of bed due to the pain despite taking ibuprofen almost continuously due to a shoulder issue. Patient has been tried on control pills in the past which were discontinued due to increased suicidal ideation. Use of a Mirena IUD and a copper IUD was cut short by expulsion of both intrauterine devices. Patient has also started using Inositol supplement but has not had significant effect from its use. Patient has pain virtually every day of the month but is much more severe during her menses and immediately prior. In addition she has deep dyspareunia although she is not currently sexually active. Patient is due for a Pap and has never had endometrial sampling. Contraception is by laparoscopic bilateral salpingectomy performed 3 years ago at [facility]. No records are available for review but the patient states that mild endometriosis was noted at the time of her sterilization procedure. She does have a significant family history in that her mother has just entered hospice care due to leiomyosarcoma diagnosed 6 years ago. Patient is understandably concerned about that history. Recent pelvic ultrasound, performed 11/15/2024, shows: PROCEDURE: US PELVIC COMPLETE INDICATIONS: menstruating x 12 days, hx endometriosis TECHNIQUE: Real-time scanning was performed of the pelvic organs, with image documentation. Additional endovaginal scanning was necessary due to incomplete visualization of the adnexal and endometrial structures by transabdominal scanning. COMPARISON: [facility], , US PELVIC COMPLETE, 10/19/2022, 21:24. FINDINGS: Uterus: Uterus is anteverted and normal in size at 7.2 x 5.7 x 4.8 cm. The myometrium is heterogeneous. The endometrium measures 10.4 mm combined thickness. Movement within the endometrium, likely representing blood product. Ovaries: The right ovary measures 4.8 x 3.8 x 3.8 cm, with a calculated ovarian volume of 37 cc. Simple right ovarian cyst measuring 3.6 x 3.1 x 2.8 centimeters. Arterial venous flow is seen to the right ovary. The left ovary is not seen. Other: No pathologic free abdominal or pelvic fluid. IMPRESSION: Endometrium is normal in thickness for premenopausal female measuring 10 millimeters. Movement is seen within the endometrium, likely representing blood product. Right ovarian simple cyst measuring 3.6 centimeters. The left ovary is not seen. Pap obtained and endometrial biopsy performed. Patient's clinical history, symptoms, pelvic imaging, and exam are all consistent with adenomyosis as the primary cause of her dysmenorrhea, abnormal uterine bleeding, and chronic pelvic pain. Undoubtedly peritoneal endometriosis and possible scarring from the patient's section could also be playing a role in the pelvic pain syndrome. We had an extended discussion about evaluation/treatment of abnormal uterine bleeding, chronic pelvic pain, and severe dysmenorrhea. The option of control pills and Mirena IUD are not viable due to the patient's past history with both. Diagnostic laparoscopy looking for an intraperitoneal cause of the patient's pelvic pain may reveal peritoneal endometriosis but would not explain the marked uterine tenderness, and abnormal uterine bleeding consistent with adenomyosis. After discussion of all options, the patient would like to proceed to hysterectomy with ovarian preservation which will assure resolution of both dysmenorrhea and abnormal uterine bleeding. If endometriosis is encountered at the time of hysterectomy, excision/fulguration will be performed. In addition the right ovarian cyst which was noted can be evaluated and cystectomy performed if indicated. She presents today for her scheduled surgery. Surgeon: Pj Campos Mineralogy Professor: Anila Huitron Anesthesia Type: General Operative Notes Findings: Uterus is normal in size and shape, there was scarring in the anterior cul-de-sac from her prior section. In the posterior cul-de-sac there are small areas of clear blebs near the insertion of the uterosacral ligaments to the posterior aspect of the cervix on both sides which were destroyed/removed during the course of the surgery. Both ovaries appeared to be normal with a small follicular cyst within the right ovary. The tubes are surgically absent due to prior bilateral salpingectomy. No other abnormalities were noted. Closure Type: primary Specimen(s): uterus Applied: catheter Estimated blood loss (mL): 125 Blood products transfused: none Procedure in detail: With the patient in modified dorsal lithotomy position preparations were made by prepping and draping the patient in usual manner for vaginal surgery and insertion of Stewart catheter. A pre-surgical time-out was then taken in accordance with [facility] policy. A bivalve speculum was then placed in the vagina and the cervix visualized. The anterior lip of the cervix was then grasped with a single-tooth tenaculum. The uterus was sounded to 7 cm, the endocervical canal dilated slightly, and a VCare uterine manipulator with a large colpotomy cup was placed. The umbilicus was then infiltrated with 0.5% Marcaine with epinephrine. A 1 cm umbilical incision was made transversely and a Veress needle was used to insufflate the abdominal cavity with carbon dioxide. Once the abdomen was appropriately insufflated, a 5 mm trocar and sleeve were then placed through the umbilical incision. The scope was placed through the trocar and the initial assessment of the intra-abdominal contents carried out. A 2nd and 3rd 5 mm port was then placed 1st in the right mid quadrant from then the left mid quadrant by infiltration of the skin and subcutaneous tissues, a 1 cm transverse incision and insertion of the 5 mm bladeless port. Using a 3 puncture technique, the abdomen and pelvis were inspected laparoscopy and photographically documented. Uterus is mobilized with the VCare manipulator and attention turned to the left adnexa. The dissection was then carried down using the PowerSeal device so as to divide the utero-ovarian ligament and the round ligament with blunt and sharp dissection of the broad down to the level of the uterine artery. The uterine artery was then skeletonized after development of a bladder flap, coagulated, and divided. Once hemostasis was assured on the left side attention was turned to the right side where utero-ovarian ligament, round ligament, and broad ligament were dissected in a fashion exactly the same as it had been on the left. The right uterine artery was then visualized after skeletonization and coagulated and divided. The uterus was seen to lukasz after coagulation of both your arteries and the cup was identified through the vaginal muscularis at its insertion with the body of the cervix. Circumferential excision of the vaginal cup was accomplished without difficulty using monopolar current and the uterus mobilized. The uterus was then removed through the vagina and the vaginal cuff closed [id number] with a series of 0 Vicryl [id number] stitches. Hemostasis was excellent, the abdomen was re-insufflated, and the pelvis inspected laparoscopically. There was some light oozing from particularly the prevesical fatty tissue and the posterior aspect of the vaginal cuff. All these were controlled with suggested she use of monopolar or bipolar current and application of per clot powder. The pelvis was inspected for any abnormality or bleeding, and the ureters were each seen to be peristalsing freely. With complete hemostasis assured, the pneumoperitoneum was vented and the ports removed. All of the 5 mm ports were then closed with 4-0 Monocryl on the skin using inverted interrupted sutures. Skin glue was placed and after the glue was dried, an appropriate dressing was applied. The case was then terminated, the patient awakened, and then transferred to PACU after having tolerated the procedure well. Complications: none Post-operative Condition: stable Disposition: PACU Plan for aftercare: Recovery in ambulatory surgery in discharge home later today if pain is under control and she is tolerating oral intake well.
[2025-01-25] MEDS: hydrOXYzine 50 MG/ML INJ 25 MG IM (13:33)
[2025-01-25] MEDS: ONDANSETRON 4 MG/2 ML INJ IV ×3 (13:33→21:35)
[2025-01-25] MEDS: OXYCODONE IR 5 MG TABLET PO ×2 (13:34→16:10)
[2025-01-25] MEDS: HYDROMORPHONE 1 MG INJ IV ×2 (13:34→19:49)
[2025-01-25] MEDS: LACTATED RINGERS 1,000 ML 100 ML IV (15:40)
[2025-01-25] MEDS: ACETAMINOPHEN 325 MG TABLET 650 MG PO (19:50)
[2025-01-25] MEDS: DOCUSATE 100 MG CAPSULE 200 MG PO (21:35)
[2025-01-26] MEDS: HYDROMORPHONE 1 MG INJ IV ×2 (00:55→08:39)
[2025-01-26] MEDS: ONDANSETRON 4 MG/2 ML INJ IV (00:55)
[2025-01-26] MEDS: LACTATED RINGERS 1,000 ML 100 ML IV (02:27)
[2025-01-26] MEDS: ACETAMINOPHEN 325 MG TABLET 650 MG PO ×2 (05:08→08:34)
[2025-01-26 06:11] LABS: Add Manual Diff / Slide Review NO; Basophils Absolute Auto 0 /uL (0-100); Basophils Percent Auto 0.2 % (0-2); Eosinophils Absolute Auto 0 /uL (0-450); Eosinophils Percent Auto 0.1 % (2-4); Hematocrit 32.1 % (36-46); Hemoglobin 11.3 g/dL (12.0-16.0); Lymphocytes Absolute Auto 1400 /uL (1100-4500); Lymphocytes Percent Auto 11.6 % (25-40); Mean Corpuscular HGB Conc 35.1 % (30-36); Mean Corpuscular Hemoglobin 29.7 PG (26-34); Mean Corpuscular Volume 84.5 fL (80-100); Monocytes Absolute Auto 800 /uL (0-900); Monocytes Percent Auto 6.7 % (3-14); Neutrophils Absolute Auto 9900 /uL (1500-7000); Neutrophils Percent Auto 81.4 % (50-75); Platelet Count 188 X10^3/uL (150-400); White Blood Cell Count 12.2 X10^3/uL (4.5-11.0)
[2025-01-26 07:00] VITALS: O2SAT 100
[2025-01-26] MEDS: OXYCODONE IR 5 MG TABLET PO ×2 (07:35→12:30)
[2025-01-26] MEDS: DOCUSATE 100 MG CAPSULE 200 MG PO (08:34)
[2025-01-26] MEDS: ESCITALOPRAM 10 MG TABLET 20 MG PO (08:35)
[2025-01-26 08:55] VITALS: BP 145/75; PULSE 72; RESP 16; TEMP 36.7; O2SAT 100
--- NOTE | 2025-01-26 09:57 | PM.DS.IH.1 ---
History of Present Illness History of Present Illness Date Patient Seen: 01/26/25 Time Patient Seen: 09:57 Chief complaint: Laparoscopic Total Hysterectomy Narrative: Justina is a 29-year-old , LMP 12/24/2024 through 01/06/2025, who presents with a 2-3 year history of progressively heavy menses and now extremely long menses. Patient experienced menarche at age 11 and has had a primary section with her 1st followed by 2 successful . Her periods have generally been regular since menarche but over the last 2 or 3 years the cycles have become significantly heavier with her typical menses lasting 8 days with 3 days of flooding. During those 3 days, she experiences passage of large clots on an nearly continuous basis, severe menstrual pain, and accidents/overflows. There was some days where she can barely get out of bed due to the pain despite taking ibuprofen almost continuously due to a shoulder issue. Patient has been tried on control pills in the past which were discontinued due to increased suicidal ideation. Use of a Mirena IUD and a copper IUD was cut short by expulsion of both intrauterine devices. Patient has also started using Inositol supplement but has not had significant effect from its use. Patient has pain virtually every day of the month but is much more severe during her menses and immediately prior. In addition she has deep dyspareunia although she is not currently sexually active. Patient is due for a Pap and has never had endometrial sampling. Contraception is by laparoscopic bilateral salpingectomy performed 3 years ago at [facility]. No records are available for review but the patient states that mild endometriosis was noted at the time of her sterilization procedure. She does have a significant family history in that her mother has just entered hospice care due to leiomyosarcoma diagnosed 6 years ago. Patient is understandably concerned about that history. Recent pelvic ultrasound, performed 11/15/2024, shows: PROCEDURE: US PELVIC COMPLETE INDICATIONS: menstruating x 12 days, hx endometriosis TECHNIQUE: Real-time scanning was performed of the pelvic organs, with image documentation. Additional endovaginal scanning was necessary due to incomplete visualization of the adnexal and endometrial structures by transabdominal scanning. COMPARISON: [facility], , US PELVIC COMPLETE, 10/19/2022, 21:24. FINDINGS: Uterus: Uterus is anteverted and normal in size at 7.2 x 5.7 x 4.8 cm. The myometrium is heterogeneous. The endometrium measures 10.4 mm combined thickness. Movement within the endometrium, likely representing blood product. Ovaries: The right ovary measures 4.8 x 3.8 x 3.8 cm, with a calculated ovarian volume of 37 cc. Simple right ovarian cyst measuring 3.6 x 3.1 x 2.8 centimeters. Arterial venous flow is seen to the right ovary. The left ovary is not seen. Other: No pathologic free abdominal or pelvic fluid. IMPRESSION: Endometrium is normal in thickness for premenopausal female measuring 10 millimeters. Movement is seen within the endometrium, likely representing blood product. Right ovarian simple cyst measuring 3.6 centimeters. The left ovary is not seen. Pap obtained and endometrial biopsy performed. Patient's clinical history, symptoms, pelvic imaging, and exam are all consistent with adenomyosis as the primary cause of her dysmenorrhea, abnormal uterine bleeding, and chronic pelvic pain. Undoubtedly peritoneal endometriosis and possible scarring from the patient's section could also be playing a role in the pelvic pain syndrome. We had an extended discussion about evaluation/treatment of abnormal uterine bleeding, chronic pelvic pain, and severe dysmenorrhea. The option of control pills and Mirena IUD are not viable due to the patient's past history with both. Diagnostic laparoscopy looking for an intraperitoneal cause of the patient's pelvic pain may reveal peritoneal endometriosis but would not explain the marked uterine tenderness, and abnormal uterine bleeding consistent with adenomyosis. After discussion of all options, the patient would like to proceed to hysterectomy with ovarian preservation which will assure resolution of both dysmenorrhea and abnormal uterine bleeding. If endometriosis is encountered at the time of hysterectomy, excision/fulguration will be performed. In addition the right ovarian cyst which was noted can be evaluated and cystectomy performed if indicated. She presents today for her scheduled surgery. Discharge Providers Provider Date of admission: 01/25/2025 Discharge Date: 01/26/25 Primary care physician: Haley Chand DO Discharge provider: Pj Campos MD Summary Hospital Course Discharge Diagnosis: Abnormal uterine bleeding Chronic pelvic pain Dysmenorrhea Adenomyosis (suspected) Status post total laparoscopic hysterectomy Hospital Course: Christel was admitted on the morning of 01/25/2025 and later that day underwent an uneventful total laparoscopic hysterectomy. Full details of the procedure well defined in my operative note of that date. Following surgery she has done extremely well with prompt return in bowel and bladder function, she is ambulating independently, tolerating a regular diet, and her pain is well relieved with oral pain medication. She will be discharged at this time to home in an afebrile normotensive condition after counseling regarding precautionary symptoms, limitations of activity, medications, and plans for follow-up which will be in 2 weeks or as needed. Medications at discharge will include resumption of all of her preadmission medications as well as oxycodone 5 mg every 4-6 hours as needed for pain, dispense 20 with no refills, and Cipro 500 mg p.o. b.i.d. x5 days for UTI prophylaxis following catheterization. Status at Discharge Cognitive/behavioral status at discharge: oriented Functional status at discharge: independent ambulation Overall status at discharge: patient is progressing back to baseline Time Spent with Patient Time spent: Less than 30 minutes Exam Vital Signs (past 8 hours): - 01/26/25 08:55 Temperature 98.1 F Pulse Rate 72 Respiratory Rate 16 Blood Pressure 145/75 H Pulse Oximetry 100 Oxygen Flow Rate 0 Oxygen Delivery Method Room Air Oxygen Flow Rate 0 Const General: cooperative and comfortable Nutritional Appearance: average body habitus Orientation: alert and oriented x3 HENMT Head: normal to inspection, atraumatic and abrasion Ears: hearing grossly normal bilaterally Face and sinus: face symmetric Eyes General: appearance normal, both eyes and all related structures Conjunctivae: conjunctivae normal Sclera: sclerae normal EOM: EOM intact bilaterally Neck Neck: normal visual inspection Resp Effort & Inspection: normal respiratory effort and able to speak in complete sentences Auscultation: clear to auscultation bilaterally Cardio Rate: regular rate Rhythm: regular rhythm Heart Sounds: S1 normal, S2 normal and no murmurs GI Inspection: normal to inspection and incision (Surgical dressings clean and dry) Palpation: soft, no hepatosplenomegaly and tender (Mild, diffuse postsurgical tenderness) External Female Exam: other (No significant bleeding noted) Extrem General: no calf tenderness Psych Appearance: grossly normal Mental Status: mental status grossly normal Speech and Movement: speech and movement normal Mood: congruent mood Affect: normal affect Attitude: cooperative Thought Process: normal Thought Content: normal Judgment: judgment good Objective Labs 01/26/25 05:45 Labs: Laboratory Results - last 24 hr 01/26/25 05:45 WBC 12.2 H RBC 3.80 L Hgb 11.3 L Hct 32.1 L MCV 84.5 MCH 29.7 MCHC 35.1 RDW 14.0 Plt Count 188 Neut % (Auto) 81.4 H Lymph % (Auto) 11.6 L Hendry % (Auto) 6.7 Eos % (Auto) 0.1 L Baso % (Auto) 0.2 Neut # (Auto) 9900 H Lymph # (Auto) 1400 Hendry # (Auto) 800 Eos # (Auto) 0 Baso # (Auto) 0 PFSH Social History household members: family and children Smoking Status: Never smoker alcohol intake: current Discharge Assessment & Plan Assessment and Plan Assessment: Abnormal uterine bleeding Chronic pelvic pain Dysmenorrhea Adenomyosis (suspected) Status post total laparoscopic hysterectomy Plan of Treatment: Routine postoperative care with follow-up in 2 weeks or as needed. Discharge Plan Discharge Plan Patient Disposition: Home Provider Discharge Comment: Please review the written instructions you received when you were discharged from the hospital. Your follow-up appointment is scheduled for 2 weeks after your surgery and I look forward to seeing you then. If however in the meanwhile you have any issues, concerns, or questions, please contact me either by the office phone at [phone], or via the patient portal. Discharge orders & Medications Discharge Orders: Discharge (Order); Ordered 01/26/25 Ordered By: Pj Campos Prescriptions: New oxycodone 5 mg Tablet 5 mg PO Q4-6H PRN (Reason: Pain, Moderate (4-6)) Qty: 20 0RF ciprofloxacin HCl [Cipro] 500 mg tablet 500 mg PO BID Qty: 10 0RF Continued escitalopram oxalate 10 mg tablet 20 mg PO DAILY valacyclovir 500 mg tablet 500 mg PO BID Qty: 30 3RF gabapentin 300 mg capsule 300 - 600 mg PO TID PRN (Reason: pain) Qty: 90 6RF ibuprofen 800 mg tablet 800 mg PO TID PRN (Reason: pain) Qty: 30 0RF acetaminophen 500 mg tablet 1,000 mg PO Q6H PRN (Reason: pain) Qty: 60 0RF methylphenidate HCl 20 mg tablet extended release 20 mg PO QAM Follow up/Referrals: Haley Chand DO [Primary Care Provider] - Pj Campos MD [Physician] - Diet/Activity/Treatments Diet: Diet as Tolerated Activity: As tolerated Other treatments: Iegu-sbj-ssdiruc Tylenol and/or ibuprofen may be used as needed for pain relief. Pnbm-pvn-wrdvhmr stool softener and/or MiraLax may be used as needed for constipation. Skin/Wound/Dressing Care Report to your healthcare provider any signs of infection, such as:: chills, fever, increased pain, unusual drainage and unusual redness Dressing: Dressing should be removed on the morning of 01/27/2025. Visit Report/Discharge Packet Instructions: DI for Hysterectomy, DI for Laparoscopy, DI for Prescription Opioid Use Stand Alone Forms: Surgery Discharge Print Language: Citizen Of [place] Discharge Data Primary Care Provider: Haley Chand Attending Provider: Pj Campos VTE Deep Vein Thrombosis/Pulmonary Embolism Present on Admission: No PROFEE Charge Codes Discharge inpatient/observation: [id number]
--- NOTE | 2025-01-26 11:08 | CM.DANOTE ---
DCP Assessment Note: Pt is a 29yo female, resident of [place], is admitted s/p total hysterectomy. Pt lives in a house with her 3 children, it is reported they are in the care of their father this weekend while pt recovers. Pt's Primary Care Provider is Dr. Haley Chand and insurance is [employer]. Reviewed chart and discussed with multidisciplinary team pt's medical status and initial discharge needs. DCP met w/patient at bedside; introduced self and role. Patient was found in bed, alert and oriented, cooperative with assessment. Pt confirmed living situation and good support in family and friends. Patient states her mother is typically a source of support but she is currently on Hospice Services and pt would want to defer to neighbors and friends for initial recovery support. Pt expressed preference in discharge home when cleared. No social needs identified at this time. Plan: Anticipating dc home today, 01/26 or when medically cleared. Pt Ramon mai, will transport when ready. CM team will follow closely for coordination of discharge plans. Georgia Palmer SANDING MACHINE TENDER Discharge Planning/Care Management CM Discharge Assessment Start: 01/25/25 11:49 Freq: Status: Active Protocol: Document 01/26/25 11:02 MW (Rec: 01/26/25 11:08 [id number]) Discharge Planning Assessment Assigned Rehabilitator J LUIS Ho DPOA/Assigned Designee Name Mother Ervin Contact Information [phone] Advance Directives? No History Provided By Patient,Family Member,Medical Record Prior Living Arrangements House Household Members family,children Type of transporation used prior to Drives own vehicle admit Independent with ADL's Yes Is patient alert and oriented? Yes Barriers to Discharge No Discharge Plan Home Transportation Arrangement Ramon Mai Whiteboard Updated in Patient Room with Yes name and ext. # of Rehabilitator Comment [phone] Review Status In Process Please Provide Date Initial DC 01/26/25 Assessment Was Performed Next Review Type Continued Stay Review
--- NOTE | 2025-01-26 14:15 | PC.NURSE ---
D/c instructions reviewed with pt. Discussed that narcotics can increase risk of constipation so increase fluid intake and possibly may need OTC laxatives. IV removed. Pt exited via w/c with RN to private vehicle. Pt did stop at pharmacy to miner pick prescriptions before leaving in private vehicle.
== END 2025-01-26 14:33 | disposition home or self-care (01) ==
LOC: OR 09:03 → AC 11:46
PROVIDERS: Family Provider Family Medicine; PCP Family Medicine; Referring Provider Obstetrics & Gynecology; Visit Provider Obstetrics & Gynecology
PROC: 0UT94ZZ Resection of Uterus, Percutaneous Endoscopic Approach (ICD-10-PCS; CPT 58570; principal; 2025-01-25 10:15)
DX: N80.03 Adenomyosis of the uterus (principal); N93.9 Abnormal uterine and vaginal bleeding, unspecified; N94.6 Dysmenorrhea, unspecified; N72 Inflammatory disease of cervix uteri
CPT/HCPCS: 58570; 36415; 81025; 85025; J0690; J1171; J1885; J2405; J2704; J2795; J3010; J3410; J3475

== ENCOUNTER → 2025-02-09 13:43 | Outpatient (CLI) | payer OTHER, SELFPAY ==
[2025-01-25 16:28] VITALS: BMI 39.1
== END ==
PROVIDERS: Family Provider Family Medicine; PCP Family Medicine; Visit Provider Obstetrics & Gynecology
DX: R31.9 Hematuria, unspecified (principal)
CPT/HCPCS: 87086

== ENCOUNTER → 2025-03-02 08:34 | Outpatient (CLI) | payer OTHER, SELFPAY ==
[2025-01-25 16:28] VITALS: BMI 39.1
== END ==
PROVIDERS: PCP Family Medicine; Referring Provider Family Medicine; Visit Provider Obstetrics & Gynecology
DX: R32 Unspecified urinary incontinence (principal); R82.998 Other abnormal findings in urine
CPT/HCPCS: 87086

== ENCOUNTER → 2025-03-22 16:18 | Outpatient (CLI) | payer OTHER, SELFPAY ==
[2025-03-13 12:47] VITALS: BMI 39.1
--- NOTE | 2025-03-22 16:19 | DI.US.S_ITS ---
PROCEDURE: US PELVIC COMPLETE INDICATIONS: recent hysterectomy, ongoing bladder issues, bladder spasm TECHNIQUE: Real-time scanning was performed of the pelvic organs, with image documentation. Additional endovaginal scanning was necessary due to incomplete visualization of the adnexal and endometrial structures by transabdominal scanning. COMPARISON: [facility], , US PELVIC COMPLETE, 11/15/2024, 16:47. [facility], , US PELVIC COMPLETE, 10/19/2022, 21:24. FINDINGS: Uterus: Status post hysterectomy. Ovaries: The right ovary measures 2.5 x 1.7 x 2.3 cm, with a calculated ovarian volume of 4.9 cc. The left ovary measures 3.0 x 2.1 x 3.9 cm, with a calculated ovarian volume of 12.6 cc. A simple appearing cyst is seen measuring 2.0 x 1.4 x 2.2 cm. The ovaries have a normal sonographic appearance. Less than 12 follicles can be seen in each ovary. No adnexal masses are seen. Other: No pathologic free abdominal or pelvic fluid. Prevoid bladder volume is 89 mL. Postvoid bladder volume is 13 mL. IMPRESSION: No acute sonographic abnormality in the pelvis. Approved by: Musa Adler M.D. on 03/23/2025 at 11:51
== END ==
LOC: US 16:18
PROVIDERS: PCP Family Medicine; Referring Provider Family Medicine; Visit Provider Family Medicine
DX: N39.3 Stress incontinence (female) (male) (principal); N83.202 Unspecified ovarian cyst, left side; N32.89 Other specified disorders of bladder; R10.2 Pelvic and perineal pain; G89.29 Other chronic pain; Z90.710 Acquired absence of both cervix and uterus
CPT/HCPCS: 76856

== ENCOUNTER → 2025-06-19 08:43 | Outpatient (CLI) | payer OTHER, SELFPAY ==
[2025-04-10 15:09] VITALS: BMI 39.1
== END ==
PROVIDERS: PCP Family Medicine; Visit Provider Physician Assistant
DX: R30.0 Dysuria (principal)
CPT/HCPCS: 87077; 87086; 87186

== ENCOUNTER → 2025-07-20 19:54 | Outpatient (CLI) | payer OTHER, SELFPAY ==
[2025-07-03 13:12] VITALS: BMI 39.1
--- NOTE | 2025-07-20 19:56 | DI.MRI.S_ITS ---
PROCEDURE: MR CERVICAL SPINE WO CON
== END ==
LOC: MRI 19:55
PROVIDERS: PCP Family Medicine; Referring Provider Family Medicine; Visit Provider Family Medicine
DX: M51.24 Other intervertebral disc displacement, thoracic region (principal); M25.512 Pain in left shoulder; M54.2 Cervicalgia; R20.2 Paresthesia of skin; R29.898 Other symptoms and signs involving the musculoskeletal system; G89.29 Other chronic pain
CPT/HCPCS: 72141

== ENCOUNTER → 2025-07-27 09:52 | Outpatient (CLI) | payer OTHER, SELFPAY ==
[2025-07-26 13:18] VITALS: BMI 39.1
[2025-07-27 12:45] LABS: HIV 1 & 2 Ab/Ag 4th Gen Combo NEGATIVE (NEGATIVE)
[2025-07-27 17:17] LABS: Urine N gonorrhoeae NOT DETECTED
[2025-07-27 17:20] LABS: Urine Chlamydia NOT DETECTED
[2025-07-28 18:04] LABS: Hep C Virus Ab w/Reflex Quant NEGATIVE s/c (NEGATIVE)
== END ==
PROVIDERS: PCP Family Medicine; Referring Provider Family Medicine; Visit Provider Family Medicine
DX: Z11.3 Encounter for screening for infections with a predominantly sexual mode of transmission (principal)
CPT/HCPCS: 36415; 86780; 86803; 87389; 87491; 87591